=== PATIENT | male | born 1955 | race Caucasian/White ===

== ENCOUNTER 2019-12-22 09:47 | Emergency (ER) | payer SELFPAY ==
[2019-12-22] VITALS (19 sets, daily range): BP systolic 134–166; BP diastolic 76–121; PULSE 53–76; RESP 12–22; TEMP 36.7–36.8; O2SAT 96–100
--- NOTE | 2019-12-22 09:45 | RT.EKG_ITS ---
APPROVED REPORT Exam: Resting ECG Patient Location: E HR:62 bpm ECG Measurements Heart Rate 62 AXIS MS 159 P 38 QRSd 94 QRS -20 QT 407 T 64 QTc 415 <Conclusion> Sinus rhythm...normal P axis, V-rate 62, no stemi
--- NOTE | 2019-12-22 10:18 | W.ED.GENAD ---
Discharge Plan Disposition Patient Disposition: HOME Condition: Improving Discharge Details Chief Complaint: Dizzy/Sync Clinical Impression: Vertigo Primary Care Provider: [facility] Provider: Johny Blanca Home Meds and New Rx's Prescriptions: New cephalexin 500 mg capsule 500 mg PO TID 5 Days Qty: 15 RF: 0 meclizine 25 mg tablet 25 mg PO BID PRNQty: 10 RF: 0 Discharge Instructions Instructions: Vertigo (ED) Additional Instructions: Your work-up today included CAT scan of the head and neck with CT angiogram. You had laboratory testing including kidney function, electrolytes, cardiac troponin, liver functions, complete blood count. Home to rest today. Continue the use of meclizine as needed for persistent vertigo symptoms. Return if develop a headache, fever, persistent vomiting or any other acute concerns. Our care management team will work to get you a follow-up to establish primary care in this area. Take the Keflex as prescribed. May continue once daily or once every other day dressing changes to the finger. Medical Decision Making Pleasant 64-year-old male who is been living at his camp in [facility]. He states that on Thursday he felt the onset of dizziness while driving and felt as equilibrium has been off since that time. He is primarily been confined to bed and walking by holding onto the schilling. He is had some intermittent episodes of emesis. He endorses a retro-orbital head pressure right greater than left. Patient also states he smashed his left index finger driving a post in the last Thursday. On exam patient is hypertensive 162/120, pulse is 76. His left index finger is macerated and tender. Cranial nerves are intact but his vertiginous symptoms are concerning for peripheral vertigo, sinusitis, must exclude underlying mass. Patient initially hesitant to proceed with work-up stating he has no money and. He was seen by care management. He subsequently agreed to proceed with work-up but asked to defer x-ray of left index finger. His tetanus status was updated. After speaking to care management, the patient's blood pressure improved to 148/100. IV placed and screening labs obtained. Labs reveal CBC with white count 7, hematocrit 48, platelets 233. Sodium 138, potassium 3.7, chloride 104, bicarb 21. BUN 15, creatinine 0.8. LFTs unremarkable, troponin negative. Albumin 3.8. CT scan of the head CTA of head and neck shows normal examination of the [place], unremarkable noncontrast CT scan of the head, normal CTA examination of the neck. Sinuses clear. Patient is improved with fluids and meclizine. As above his neurologic evaluation was unremarkable, laboratories are very reassuring. He declined x-ray of the left finger, it was dressed and I will place him on Keflex for possible early cellulitis as he has been treating the distal portion of macerated skin at home. With schedule the patient for outpatient follow-up to establish care in this area. He will need to watch his blood pressures at home but his last reading is 134/76 and significantly improved. I will prescribe him meclizine to be used as needed for peripheral vertigo. He is stable and improved at this time. Lab Data Lab results reviewed: Yes I reviewed the patient's lab results. Labs: Laboratory Results - last 24 hr 12/22/19 12/22/19 10:50 10:50 WBC 7.13 RBC 4.96 Hgb 16.7 Hct 48.4 MCV 97.6 H MCH 33.7 H MCHC 34.5 RDW 12.8 Plt Count 233 MPV 8.8 Immature Gran % 0.3 Neutrophils % 71.7 Lymphocytes % 18.0 Monocytes % 5.9 Eosinophils % 3.5 Basophils % 0.6 Absolute Neutrophils 5.12 Absolute Lymphocytes 1.28 Absolute Monocytes 0.42 Absolute Eosinophils 0.25 Absolute Basophils 0.04 Sodium 138 Potassium 3.7 Chloride 104 Carbon Dioxide 21.5 Anion Gap 12.5 H BUN 15 Creatinine 0.82 Estimated GFR/1.73 m2 >= 60.00 Glucose 99 Calcium 9.0 Total Bilirubin 0.6 AST 24 ALT 26 Alkaline Phosphatase 76 Troponin I < 0.05 Total Protein 7.2 Albumin 3.8 ECG Data Attestation: I personally reviewed and interpreted this ECG (s) as follows: Interpretation: Normal sinus rhythm with a rate of 62, QRS is narrow, there is no ST segment elevation present. HPI General Mode of arrival: ambulatory. Date/Time Provider Initiated Documentation: 12/22/19 09:48. Limitations to Documentation: no limitations. Information obtained by: patient. History of Present Illness 64 year old M presents to the emergency department with the chief complaint of Vomiting and dizziness since Thursday, left index finger injury, described as moderate, Quality is described as constant, and is localized to the head. Patient reports no radiation. Patient started experiencing this day(s) and it has been constant. Rest improves symptom(s), Movement worsens symptoms . Patient notes nausea/vomiting; denies confusion, chest pain, cough, fever/chills, syncope and weakness. Patient did receive the following treatments prior to arrival, none Related Data Home Medications Medication Instructions Recorded Confirmed cephalexin 500 mg PO TID 5 Days #15 cap 12/22/19 meclizine 25 mg PO BID PRN #10 tab 12/22/19 Previous Rx's Medication Instructions Recorded cephalexin 500 mg PO TID 5 Days #15 cap 12/22/19 meclizine 25 mg PO BID PRN #10 tab 12/22/19 Allergies Allergy/AdvReac Type Severity Reaction Status Date / Time No Known Allergies Allergy Unverified 12/22/19 10:02 General Stated Complaint: Dizzy/Sync TALIB: 3 Review of Systems Narrative: Smashed his left index finger while placing a fence post on last Thursday he is treated with Band-Aid and ointment. States he has mild retro-orbital pressure sensation but not pain. Has been nauseated with intermittent episodes of vomiting. Denies other significant symptoms. 8 systems reviewed and otherwise negative. [facility] Social History Smoking/Tobacco Use Status: Never Alcohol Intake: never Drug use: Daily Substance use type: marijuana Exam Narrative Exam Narrative: GEN: awake, alert, oriented 3. Pleasant, well groomed, interactive. HEAD: Normocephalic, atraumatic ENT: Mucous membranes moist, oropharynx unremarkable, External ear exam unremarkable, tympanic membranes partially occluded by cerumen bilaterally but clear. EYES: PERRL, EOMI NECK: Full ROM, no ESTEFANY, no menigismus CHEST/RESP: Nontender, clear to auscultation bilateral, no wheeze/rhonchi/rales CARDIOVASCULAR: Distant, RRR, no murmur, rub terri. 2+ Rad pulse bilateral ABDOMEN: Soft, nontender, no mass. +Bowel sounds EXT: Full ROM, no edema, left index finger distal portion is macerated on the volar surface and tender. Neuro: Grossly normal neurologic exam, conversant, interactive. Cranial nerves 2 through 12 intact, [id number] intact, visual borrero intact to confrontation. Able to stand at the bedside. Negative Romberg. Psych: Speech fluent, thoughts congruent, affect normal Course Vital Signs Vital signs: Vital Signs Temperature 36.8 C 12/22/19 09:57 Pulse 76 12/22/19 09:57 Respiratory Rate 16 12/22/19 09:57 Blood Pressure 162/121 H 12/22/19 09:57 Pulse Oximetry 97 12/22/19 09:57 Temperature 36.8 C 12/22/19 09:57 Temperature Source Skin 12/22/19 09:57 Pulse 76 12/22/19 09:57 Respiratory Rate 16 12/22/19 09:57 Respiratory Effort Non-Labored 12/22/19 09:57 Blood Pressure 162/121 H 12/22/19 09:57 Pulse Oximetry 97 12/22/19 09:57 Oxygen Delivery Method Room Air 12/22/19 09:57 Oxygen Flow Rate 0 12/22/19 09:57 Pain Level 5 12/22/19 09:57
--- NOTE | 2019-12-22 10:44 | PDOC.ERCMPRO ---
- If Service Date Differs Date of service: 12/22/19 Time of Service: 10:45 Care Management Progress Note S/O: At the request of ED provider, CM meets with patient to discuss financial concerns. Jann reports for the past 7 or 8 years, he has been living in [place]. In August of this year, when the pandemic began creating havoc, he decided to move to [place] to be with his two adult sons and his 7-year-old granddaughter. 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 At the beginning of November, his youngest son moved in with him. Jann states his son works full-time but has a TBI, so he requires support from Jann. At this time, the only income Jann has is from a rental property he owns in [place], where he lived prior to moving to [place]. He currently has no health insurance, does not have a local primary care provider, and has no other means of support. Jann owns a vehicle and is independent at baseline, so transportation is not an issue. He also reports having plenty of food and denies any other financial concerns. A: Jann is a 64 year old male who presents to the ED with dizziness over the past two days. P: MURRAY provides Jann with contact information for [facility] and gives him a patient assistance application. CM will coordinate referrals to [facility] for assistance with health insurance, and to Dr. Zhu, [facility]oc, of [facility], to assist Jann in getting a follow up appointment to his ED visit and in establishing care with a local PCP.
--- NOTE | 2019-12-22 10:45 | DI.CT_ITS ---
EXAM: CT BRAIN NECK CTA CLINICAL HISTORY: Dizzy, nausea, R > L sinus pressure. TECHNIQUE: Imaging Protocol: Axial CT angiography was performed with multi-slice acquisition and mu lti-planar and/or 3D reconstructions. CONTRAST MATERIAL: Intravenous: Omnipaque 350 Contrast volume:structured data in ml COMPARISON: No exams were available for comparison FINDINGS: CT Head W/O: Ventricles and Extra axial spaces: Normal in size and morphology for the patient's age. Hemorrhage: None. Cerebral parenchyma: Normal. Midline shift: None. Brainstem/Cerebellum: Normal. Calvarium: Normal. Visualized Paranasal sinuses/Mastoids: Clear. Soft Tissues: Unremarkable. CTA Brain W: Internal Carotid Arteries: Petrous: Normal. Cavernous: Normal. Cerebral: Normal. Middle Cerebral Arteries: Right: No aneurysm, occlusion or significant stenosis. Left: No aneurysm, occlusion or significant stenosis. Anterior Cerebral Arteries: Right: No aneurysm, occlusion or significant stenosis. Left: No aneurysm, occlusion or significant stenosis. Posterior cerebral Arteries: Right: No aneurysm, occlusion or significant stenosis. Left: No aneurysm, occlusion or significant stenosis. Vertebral Arteries: Right: No aneurysm, occlusion or significant stenosis. Left: No aneurysm, occlusion or significant stenosis. Basilar Artery: No aneurysm, occlusion or significant stenosis. CTA Neck W: Common Carotid: Right: No aneurysm, occlusion or significant stenosis. Left: No aneurysm, occlusion or significant stenosis. External Carotid: Right: No aneurysm, occlusion or significant stenosis. Left: No aneurysm, occlusion or significant stenosis. Internal Carotid: Right: No aneurysm, occlusion or significant stenosis. Left: No aneurysm, occlusion or significant stenosis. Vertebral Artery: Right: No aneurysm, occlusion or significant stenosis. Left: No aneurysm, occlusion or significant stenosis. Lung Apices: Normal. Bones: Degenerative disc and facet degenerative changes. Soft Tissues: Normal. IMPRESSION: 1. Normal CTA examination of the [place]. 2. Unremarkable noncontrast CT Head. 3. Normal CTA examination of the neck. RADIATION DOSE DELIVERED: 1,231mGy.cm Total DLP DATA REPOSITORY: All CT scans at this facility are submitted to the National Radiology Data Registry (NRDR) Dose Index Registry (DIR) with the [employer] (ACR). RADIATION OPTIMIZATION: All CT scans at this facility use at least one of these dose optimization te chniques: automated exposure control; mA and/or kV adjustment per patient size (includes targeted exa ms where dose is matched to clinical indication); or iterative reconstruction.
[2019-12-22] MEDS: Normal Saline Flush 10 ML SYR IVP (10:50)
[2019-12-22] MEDS: Normal Saline 1,000 ML 1000 ML IV (11:00)
[2019-12-22 11:02] LABS: Abs Immature Grans 0.02 10^3/uL (0.0-0.06); Absolute Basophil Count 0.04 10^3/uL (0.0-0.2); Absolute Eosinophil Count 0.25 10^3/uL (0.0-0.7); Absolute Lymphocyte Count 1.28 10^3/uL (1.2-3.4); Absolute Monocyte Count 0.42 10^3/uL (0.1-0.8); Absolute Neutrophil Count 5.12 10^3/uL (1.2-6.7); Basophils % 0.6; Eosinophils % 3.5; HCT 48.4 % (40.0-50.0); HGB 16.7 g/dL (13.5-17.5); Immature Grans % 0.3; MCH 33.7 pg (27.0-33.0); MCHC 34.5 % (32.0-36.0); MCV 97.6 fL (80-95); MPV 8.8 fL (8.0-11.0); Monocytes % 5.9; Neutrophils % 71.7; Platelet Count 233 10^3/uL (130-400); RBC 4.96 10^6/uL (4.36-5.78); RDW 12.8 % (11.8-14.1); RDW-SD 46.1 fL; WBC 7.13 10^3/uL (4.4-10.8)
[2019-12-22] MEDS: Meclizine 25 MG TAB PO (11:07)
[2019-12-22] MEDS: Cephalexin 500 MG CAP, 4 CAPS/BTL PO (11:17)
[2019-12-22 11:20] LABS: ALT 26 U/L (16-63); AST 24 U/L (15-37); Albumin 3.8 g/dL (3.4-5.0); Alkaline Phosphatase 76 U/L (46-116); Anion Gap 12.5 mmol/L (3-11); BUN 15 mg/dL (7-18); Bilirubin, Total 0.6 mg/dL (0.2-1.0); CO2 21.5 mmol/L (21.0-32.0); CREATININE 0.82 mg/dL (0.70-1.30); Chloride 104 mmol/L (98-107); Glucose 99 mg/dL (74-106); Potassium 3.7 mmol/L (3.5-5.1); Sodium 138 mmol/L (136-145); Total Protein 7.2 g/dL (6.4-8.2); Troponin I < 0.05 ng/mL (<0.06)
--- NOTE | 2019-12-22 12:51 | NUR.NOTE ---
Nursing Note: Referral given to Fleet Administrative Assistant to establish care with PCP. Susan Dugan
[2019-12-22 13:42] LABS: Troponin I < 0.05 ng/mL (<0.06)
== END 2019-12-22 14:10 | disposition home or self-care (01) ==
PROVIDERS: Emergency Provider Emergency Medicine
DX: R42 Dizziness and giddiness (principal); S61.211A Laceration without foreign body of left index finger without damage to nail, initial encounter; W27.8XXA Contact with other nonpowered hand tool, initial encounter; R11.2 Nausea with vomiting, unspecified; I10 Essential (primary) hypertension
CPT/HCPCS: 36415; 70496; 70498; 80053; 90471; 93005; 96360; 99285; 84484; 85025; 93010; 99284

== ENCOUNTER 2020-11-02 11:00 | Emergency (ER) | payer SELFPAY ==
[2020-11-02 11:02] VITALS: BP 164/89; PULSE 63; TEMP 36.7; O2SAT 98
--- OUTSIDE RECORDS SUMMARY | 2020-11-02 11:05 | XMS_ITS ---
:1955 External Reference #:[id number] Author Care Team Providers Name Role Phone Kaylee Burt Primary Care Provider Unavailable Allergies None recorded. Medications Name Status Start Date Stop Date ? ? fluconazole Active ? Not available 1x week for 12 weeks for toenail fingus losartan Active 09/03/2020 Not available Problems Name Status Onset Date Source ? Onychomycosis of Toenails Active 10/16/2020 ? Hypertensive Disorder Active 10/16/2020 ? Family History of Cardiovascular Disease Active 021 ? Family History of Blood Coagulation Disorder Active ? Macrocytosis - No Anemia Active 10/22/2020 ? Muscle Weakness Active 10/22/2020 ? Pain in Limb Active 10/22/2020 ? Dizziness Active 10/22/2020 ? Pain in Right Hip Joint Active 10/22/2020 ? Pain in Right Knee Active 10/22/2020 ? Pain of Left Elbow Joint Active 10/22/2020 ? Procedures Date Name Performed by ? ? Hernia Repair Information not avai lable 10/16/2020 US, Duplex, Venous, Lower Extremity Xray [facility] [address] [place], [place] [address] (Work [address]) 10/17/2020 XR, Hip + Pelvis, Bilateral, 3 or 4 Xray [facility] [address], [place] [address] (Work Place) Results Lab Results None recorded. Past Encounters 10/16/2020 Hypertensive Disorder; Family History of Cardiovascular Disease; Family History of Blood Coagulation Disorder; Onychomycosis of Toenails; Hyperlipidemia Screening; Pain of Left Elbow Joint; Pain in Righ t Knee; Dizziness; Muscle Weakness; Macr ocytosis - No Anemia; Pain in Limb; Pain in Right Hip Joint Kaylee Burt, ND: [address], [place] [address], Ph. [phone] Social History Tobacco Smoking Status Never Smoker Vaccine List None recorded. Plan of Care Patient Instructions 1. Kerwin Parsons PT 2. US right thigh and groin, behind knee R/o CVT first if nothing then order hernia US, and hip /pelvic xray 3. LYme western blot? 4 , general bloodwork- [facility] at [facility] ent 5. Imaging of heart? carotid scan? [facility] Provider Appointments None recorded. ? ? Lab None recorded. ? ? Referral None recorded. ? ? Procedures None recorded. ? ? Surgeries None recorded. ? ? Imaging None recorded. ? ? Vitals Height Weight BMI Blood Pressure 5 ft 11 in 214 lbs 29.8 kg/m2 140/84 mm[Hg]
--- OUTSIDE RECORDS SUMMARY | 2020-11-02 11:05 | XMS_ITS | Encounter Summary ---
:1955 External Reference #:[id number] Author Reason for Visit None recorded. Assessment and Plan Assessment Note I spent a total of 90 minutes face to face time with this patient and 75 minutes of that time was spent in counseling and coordination of care with that patient as described in the progress note and /or: recommended diagnostic studies instructions for treatment and follow-up 1. Hypertensive disorder ? lipoprotein a, qn, serum 2. Family history of Cardiovascu lar disease 3. Family history of blood coagu lation disorder 4. Onychomycosis of toenails 5. Hyperlipidemia screening ? HbA1c (hemoglobin A1c), bl ood ? homocysteine, serum or glenny sma ? CMP, serum or plasma ? CRP, high sensitivity, ser um or plasma ? lipid panel, serum 6. Pain of left elbow joint 7. Pain in right knee 8. Dizziness ? dizziness: care instructio ns ? vitamin B12 + folate, seru m or blood 9. Muscle weakness ? CK (creatine kinase), tota l, serum 10. Macrocytosis - no anemia ? CBC w/ diff 11. Pain in limb ? US, duplex, venous, lower extremity - look for DVT strong FamHx of clots, early stroke mother and father an d sibling- deep pain behind knee, also has pain in groin-right side look for hernia , DVT 12. Pain in right hip joint ? XR, hip + pelvis, bilatera l, 3 or 4 view Discussion Note: None recorded. Plan of Care Patient Instructions 1. Kerwin Parsons PT 2. US right thigh and groin, behind knee R/o CVT first if nothing then order hernia US, and hip /pelvic xray 3. LYme western blot? 4 , general [facility]- [facility] 5. Imaging of heart? carotid scan? Reminders Provider Appointments Established Shila haley Patient 46 11/06/2020 SRIDEVI Burt 8:45AM Lab HbA1C ? (Hemoglobin a1C), Blood 10/16/2020 ? Homocysteine, ? Serum or Plasma 10/16/2020 ? CMP, Serum or ? Plasma 10/16/2020 ? CRP, High ? Sensitivity, Serum or 10/16/2020 Plasma ? CK (Creatine ? Kinase), Total, Serum 10/16/2020 ? Vitamin B12 + ? Folate, Serum or Blood 10/16/2020 ? CBC W/ Diff ? 10/16/2020 ? Lipid Panel, ? Serum 10/16/2020 ? Lipoprotein a, ? Qn, Serum 10/16/2020 Referral None recorded. ? ? Procedures None recorded. ? ? Surgeries None recorded. ? ? Imaging US, Duplex, [facility] Xray Venous, Lower Extremity 10/16/2020 ? XR, Hip + [facility] Xr ay Pelvis, Bilateral, 3 or 4 10/17/2020 View Medications Name Start Date ? ? fluconazole ? 1x week for 12 weeks for toenail fingus losartan 09/03/2020 Medications Administered None recorded. Vitals Height Weight BMI Blood Pressure 5 ft 11 in 214 lbs 29.8 kg/m2 140/84 mm[Hg] Results Lab Results None recorded. Allergies None recorded. Problems Name Status Onset Date Source ? [...] 10/16/2020 US, Duplex, Venous, Lower Extremity Xray [facility] [address] [place], [place] [address] (Work Place) Vaccine List None recorded. Social History Tobacco Smoking Status Never Smoker Family History Relation Problem Onset Age of Age Notes Brother Disorder of (No N/A (No Notes) cardiovascular system Information) Brother Family history of blood (No N/A (No Notes) coagulation disorder Information) Functional Status Unknown. Past Encounters 10/16/2020 Hypertensive Disorder; Family History of Cardiovascular Disease; Family History of Blood Coagulation Disorder; Onychomycosis of Toenails; Hyperlipidemia Screening; Pain of Left Elbow Joint; Pain in Righ t Knee; Dizziness; Muscle Weakness; Macr ocytosis - No Anemia; Pain in Limb; Pain in Right Hip Joint Kaylee Burt, ND: [address], [place] [address], Ph. 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
</div><div>right leg issue:</div><div>feels weakness</div><div>he was playing fetch with [employer] RIGHT leg collapsed and he fell on ground- </div><div>left foot must go on ground- first anf then right leg</div><div>he moved here from [place]- he us used to walk 5 mi every am- and now he cant walk from right hip- lower back and knee- </div><div>no imaging- </div><div>has no doctor- </div><div>he would like an MD- </div><div>her went to ER last for vertigo- </div><div>dizziness like looking thr ough a straw- </div><div>pixelated and moving was out of focus- </div><div>he went to ER 4/5 days and he started a RX as needed- but f he didnt take it- </div><div>stayed in bed</div><div>no headache</div><div>thet Brain CT nothing- </div><div>non contrast Ct showed no abnormalities- </div><div>
</div><div>he hurt his finger, crushed it- itrrigated 2xday and aspirin and neosporin and it healed itself- </div><div>
</div><div>was 217 c</div><div>holesterol in past he thinks</div><div>aches all the time and keeps him awake at noght- he doesnt have any cold</div><div>has never been on meds for cholesterol- he hasnt had a DR in 10yrs- </div><div>
</div><div>smoked marijuana- </div><div>[employer]- marijuana- </div><div>
</div><div>he has 3 sibling one oldest- all bigger and heavy- </div><div>everyone is on a blood thinner- both parents- brother chronic clots in lower legs- 10 </div><div>sister had a stroke at 40yrs old- </div><div>htn everyone- </div><div>sister also has a calve wound that will not heal- </div><div>
</div><div>frequency- at noght and inabiltyto hold urine- </div><div>
</div><div>inner groin on right side- </div><div>and inner thigh and knee</div><div>also cant ly on right side bc hiphurts</div><div>knee constantly hurt center of knee up throgh the back of knee- </div><div> he has had a lot of ticks on him- </div><div> has a bad diet- rubbing < /div> Review of Systems None recorded. Physical Exam ? General Adult Exam Reported By: Patient Constitutional: General Appearance: healthy- appearing, well-nourished, well-developed, overweight. Level of Distress: NAD. Ambulation: ambulating normally Psychiatric: Insight: good judgement. Men emely Status: active and alert, normal mood, normal affect. Orienta tion: to time, to place, to person. Memory: recent memory normal , remote memory normal Head: Head: normocephalic, atrauma tic Eyes: Lids and Conjunctivae: non-i njected, no discharge, no pallor. Pupils: PERRLA. Corneas: codie ssly intact. Fundoscopic: grossly normal except where noted, n ormal optic discs, normal vessels, no exudates, no hemorrhages. EO M: EOMI. Lens: clear. Sclerae: non-icteric. Vision: periphe ral vision grossly intact, acuity grossly intact ENMT: Ears: no lesions on external ear, EACs clear, TMs clear, TM mobility normal. Hearing: no hearing loss, Rinne AC>BC. Nose: no lesions on external nose, na res patent, no septal deviation, nasal passages clear, no sinus ten derness, no nasal discharge. Lips, Teeth, and Gums: no mouth or lip ulcers, no bleeding gums, normal dentition. Oropharynx: moist mucous membranes, no erythema, no exudates, tonsils not enlarg ed Lungs: Respiratory effort: no dyspn ea. Auscultation: breath sounds normal, good air movement, no wheezi ng, no rales/crackles, no rhonchi Cardiovascular: Apical Impulse: not displace d. Heart Auscultation: RRR, normal S1, normal S2. Neck vessels: no carotid bruits. Pulses including femoral / pedal: normal thro ughout Abdomen: Bowel Sounds: increased. Ins pection and Palpation: soft, non-distended, no tenderness , no guarding, no rebound tenderness, no masses, no CVA tenderness . Liver: non-tender, no hepatomegaly. Spleen: non-tender, no splen omegaly. Hernia: none palpable Male : Scrotum: no swelling, no ten derness Musculoskeletal:: Motor Strength and Tone: nor mal. Joints, Bones, and Muscles: normal movement of all extremities Neurologic: Gait and Station: normal gai t, normal station. Cranial Nerves: grossly intact. Reflexes: DT Rs 2+ bilaterally throughout. Coordination and Cerebellum: [id number]-or-sgni intact, no tremor Skin: Inspection and palpation: no rash. Nails: normal Notes: red skin<div>dark circles un sandy eyes- dry skin elbos and knees</div><div>
</div>
--- NOTE | 2020-11-02 11:26 | ED.GENADUL_ITS ---
Discharge Plan Disposition Patient Disposition: HOME Condition: Good Discharge Details Clinical Impression: Tick bite Primary Care Provider: Kaylee Burt ED Provider: Abby Linton Home Meds and New Rx's Prescriptions: New doxycycline hyclate 100 mg tablet 100 mg PO BID Qty: 14 RF: 0 No Action fluconazole 150 mg Tablet 150 mg PO DIRECTED RF: 0 losartan 25 mg Tablet 25 mg PO DAILY RF: 0 Discharge Instructions Instructions: Tick Bite (ED) Additional Instructions: Follow-up with primary care physician I have ordered a tick panel, this should return within the next several days Take antibiotic as prescribed Return earlier should you develop new or worsening symptoms Medical Decision Making This could be erythema migrans, however it looks almost more of a contact dermatitis, given the erythema and persistent rash, I did start the patient on doxycycline empirically, he has a Lyme or tick panel pending His only meds supplied with 7 days of doxycycline He also apply hydrocortisone Discharge home stable condition with stable vitals He has a lead cook that he sees but is requesting medical provider as well, referral is made to case management Return precautions discussed and patient expressed understanding, discharged home in stable condition Differential Diagnosis Differential Diagnosis: Erythema migrans, Lyme disease, cellulitis, contact derm atitis HPI General Mode of arrival: ambulatory . Date/Time Provider Initiated Documentation: 11/02/20 11:01 . Limitations to Documentation: no limitations . Information obtained by: patient . HPI Narrative: This 65-year-old male presents with report of tick bite 2 weeks prior to arrival. Thinks it was a dog taste. He removed the tick and a week later that there is residual parts and use d a [employer] knife to remove an additional portion. He states that he noted a rash approximately a week ago. He presents secondary to poor stent rash formation to the affected area. He denies any fever or chills. He denies any arthralgias. He does state that he feels tired . Denies any additional complaints at this time. Otherwise aside from history of hypertension healthy. Describes the rash as itchy. Related Data Home Medications Medication Instructions Recorded Confirmed doxycycline hyclate 100 mg PO BID #14 tab 11/02/20 fluconazole 150 mg PO DIRECTED 11/02/20 11/02/20 losartan 25 mg PO DAILY 11/02/20 11/02/20 Previous Rx's Medication Instructions Recorded doxycycline hyclate 100 mg PO BID #14 tab 11/02/20 Allergies Allergy/AdvReac Type Severity Reaction Status Date / Time No Known Allergies Allergy Unverified 11/02/20 11:07 General Stated Complaint: RashLesion TALIB: 5 Review of Systems Narrative: Review of systems obtained x3 aside from where indicated in HPI All systems reviewed & are unremarkable except as noted in HPI and below PFSH Social History Smoking/Tobacco Use Status: Never Smoking risk assessment performed?: Yes Alcohol Intake: never Drug use: Daily Substance use type: marijuana Do you feel safe at home: Yes Do you feel safe in your relationship?: Yes Exam Const General: cooperative and no acute distress Resp Effort & Inspection: normal respiratory effort Cardio Rate: regular rate Skin Other: Approximately 3 inch x 3 inch erythematous rash with small area of central clearing surrounding scab, papular rash noted Neuro General: patient alert Course Vital Signs Vital signs: Vital Signs Temperature 36.7 C 11/02/20 11:02 Pulse 63 11/02/20 11:02 Blood Pressure 164/89 H 11/02/20 11:02 Pulse Oximetry 98 11/02/20 11:02 Temperature 36.7 C 11/02/20 11:02 Temperature Source Temporal Artery Scan 11/02/20 11:02 Pulse 63 11/02/20 11:02 Respiratory Effort Non-Labored 11/02/20 11:06 Blood Pressure 164/89 H 11/02/20 11:02 Blood Pressure Position Sitting 11/02/20 11:02 Pulse Oximetry 98 11/02/20 11:02 Oxygen Delivery Method Room Air 11/02/20 11:02 Oxygen Flow Rate 0 11/02/20 11:02 Pain Level 0 11/02/20 11:02
--- NOTE | 2020-11-02 18:47 | NUR.NOTE ---
Nursing Note: referral faxed to care management 11/02/20 @ [phone]
[2020-11-05 09:52] LABS: Lyme Ab w Rflx to Lyme Confirm Negative (Negative)
[2020-11-06 18:36] LABS: Anaplasma phagocytophilum Negative (Negative); B. miyamotoi PCR Negative (Negative); Babesia divergens/MO-1 Negative (Negative); Babesia duncani Negative (Negative); Babesia microti Negative (Negative); Ehrlichia chaffeensis Negative (Negative); Ehrlichia ewingii/canis Negative (Negative); Ehrlichia muris eauclairensis Negative (Negative)
== END 2020-11-02 11:36 | disposition home or self-care (01) ==
PROVIDERS: Emergency Provider Physician Assistant; PCP Naturopath
DX: S30.861A Insect bite (nonvenomous) of abdominal wall, initial encounter (principal); W57.XXXA Bitten or stung by nonvenomous insect and other nonvenomous arthropods, initial encounter
CPT/HCPCS: 36415; 87798; 99283; 86618

== ENCOUNTER 2020-11-13 03:18 | Outpatient (CLI) | payer SELFPAY ==
[2020-11-13 08:31] LABS: Kit/Specimen SENT
== END 2020-11-13 03:19 | disposition home or self-care (01) ==
LOC: LBO 03:18
PROVIDERS: PCP Nurse Practitioner Family; Visit Provider Naturopath
DX: A69.20 Lyme disease, unspecified (principal); R53.83 Other fatigue
CPT/HCPCS: 36415

== ENCOUNTER → 2020-12-14 04:44 | Outpatient (CLI) | payer SELFPAY ==
--- NOTE | 2020-12-14 07:15 | DI.RAD_ITS ---
Exam(s) XR HIP RT COMPLETE AP PELVIS EXAM: XR HIP RT COMPLETE AP PELVIS CLINICAL HISTORY: Worsening hip pain over year,M25.559. TECHNIQUE: 2D digital imaging was performed. COMPARISON: No exams were available for comparison FINDINGS: BONES: No acute fracture is present. No bony destructive lesion is seen. Degenerative disc changes a re seen in the lower lumbar spine. JOINTS: No dislocation present. Severe narrowing of the right hip joint space. Prominent periarticul ar spurring. Sclerosis and subchondral cyst formation. [id number] degenerative changes of the left hip. SI joints and pubic symphysis are unremarkable. SOFT TISSUE: Normal. IMPRESSION: Severe degenerative changes of the right hip. [id number] degenerative changes of the left hip. DATA REPOSITORY: RADIATION DOSE DELIVERED:
== END ==
PROVIDERS: PCP Nurse Practitioner Family; Visit Provider Nurse Practitioner Family
DX: M16.0 Bilateral primary osteoarthritis of hip (principal)
CPT/HCPCS: 73502

== ENCOUNTER 2021-07-10 02:19 | Outpatient (CLI) | payer SELFPAY ==
[2021-07-10 21:19] LABS: COVID-19 PCR Negative (Negative)
[2021-07-10 23:19] LABS: Source Nasal/Nares
== END 2021-07-10 02:20 | disposition home or self-care (01) ==
LOC: LBO 02:19
PROVIDERS: PCP Nurse Practitioner Family; Visit Provider Surgery
DX: Z20.822 Contact with and (suspected) exposure to COVID-19 (principal)
CPT/HCPCS: 87635

== ENCOUNTER 2021-07-12 07:38 | Day surgery (SDC) | payer SELFPAY ==
--- NOTE | 2021-07-11 21:32 | PDOC.DSDIS_ITS ---
Discharge Plan Disposition Patient Disposition: HOME Condition: Good Discharge Details Reason For Visit: Colon scope/colonoscopy Attending Provider: Juliana Gabriel Primary Care Provider: Jean Carlos David Home Meds and New Rx's Prescriptions: No Action polyethylene glycol 3350 17 gram/dose powder 238 g PO ONCE Qty: 238 0RF Rx Instructions: take per colonoscopy instructions bisacodyl [Dulcolax (bisacodyl)] 5 mg tablet,delayed release (DR/EC) 5 mg PO ONCE Qty: 4 0RF Rx Instructions: take per colonoscopy instructions losartan 100 mg tablet 100 mg PO DAILY 0RF aspirin 325 mg tablet 325 mg PO DAILY 0RF Discharge Instructions Additional Instructions: DSU Colonoscopy Post- Op Instructions Instructions for Everyone who is given Anesthesia: For your safety, please do the following for the next twenty-four (24) hours: *Do Not operate a motor vehicle (car, truck, motorcycle, etc.) *Do Not drink alcoholic beverages or use any recreational drugs for the first 24 hours or while taking pain medications. The medications in your body may have a reaction that can be dangerous. *Do Not make any important decisions or sign any important papers. Findings:diverticula- mild. polyps x2 Follow up: My office will send a letter in 3 weeks time detailing what types of polyps they were and when we want you to repeat the colonoscopy, probably 5 years time. 1. No lifting over 20 pounds or strenuous activity for the first 24 hours after your procedure. After 24 hours there are no restrictions on your activity but you may feel fatigued for a few days. 2. After you arrive home you may have a light meal and return to your normal diet as you can tolerate it without feeling sick to your stomach. 3. You may have a bloated, gaseous feeling in your belly (abdomen) after a colonoscopy. Passing gas and belching will help. Walking or lying down on your left side with your knees flexed may relieve the discomfort. Call the office at [phone] (Office) or [phone] (Hospital) right away if you notice any of the following: a.Vomiting of blood or ?coffee ground stools?. b.Rectal bleeding 1Tbsp, blood clots or continuous bleeding. c.Severe belly (abdominal) pain. d.A hard distended belly (abdomen) and an inability to pass gas. 4. Please don?t expect to have a normal BM (bowel movement) for 2-3 days after your procedure. 5. If there are questions regarding the findings of your procedure, please contact your doctor 6. If you are unable to contact your doctor with a problem, contact the hospital at [phone]. 7. Continue all your regular medications unless directed otherwise. I understand the above instructions and have no questions. Signature of Patient or Adult Escort Name of Responsible Adult Escort Signature of Nurse Date/Time Activity:: See above Diet:: See above Discharge Orders Discharge Orders: Discharge Order (Routine); Ordered 07/11/21 Ordered By: Juliana Gabriel
--- NOTE | 2021-07-11 21:33 | W.COLOREPORT ---
Colonoscopy Report Date of procedure: 07/12/21 Pre-op diagnosis general: Colon cancer screening Post-op diagnosis procedure note: other (Minor diverticula/polyps x2) Surgeon: Juliana Gabriel Anesthesia Type: General:No Airway Complications: None Disposition: same day Prep: Miralax/Dulcolax Retraction Time: 10 Procedure Description: After informed consent was obtained the patient was taken to the procedure room and placed in a left decubitous position. Monitors were applied and a time out was done. The patients name, date of , procedure, allergies to medications and metal in their body was reviewed. The patient was then sedated. Once sedated and comfortable a rectal exam was done. External exam was normal. Internal exam revealed a normal sphincter tone and no palpable masses. The prostate smooth without masses. She will The scope was then introduced and retrofelexed. internal hemorrhoids were identified. The scope was then advanced to the cecum without difficulty. The prep is a be BPS?three,throughout the entire colon. the TI and appendiceal orifice were identified. The scope was then slowly retracted over 10minutes back into the rectum. He has mild diverticular disease confined to the sigmoid colon only. He has a 0.75 cm pedunculated polyp in the cecum that is removed with a hot snare. The base was adequately cauterized and did not require clip. He has a 5 mm flat polyp at 70 cm that is removed with a hot biting forcep with one bite. All specimen is retrieved and no bleeding is noted. Mucosa is pink and healthy throughout the entirety of the colon. Scope was removed and the patient was woken up and taken back to Same day surgery in stable condition. The patient tolerated the procedure well and there were no immediate complications. Follow up: The patient should follow up in 5-7 years, path pending,unless they develop changes in bowel habits or other new gastrointestinal complaints.
[2021-07-12 07:43] VITALS: BP 128/85; PULSE 72; RESP 16; TEMP 35.9; O2SAT 98
[2021-07-12] MEDS: Lactated Ringers 1,000 ML 80 ML IV (08:09)
--- NOTE | 2021-07-12 08:18 | W.ANESPRE ---
General Info Date of Service Date Performed: 07/12/21 Height: 5 ft 11 in Weight: 100.6 kg Body Mass Index (BMI): 30.9 Surgical Procedure: Operation Date: 07/12/21 08:05 Proposed Procedure Side Surgeon kira Gabriel, DO Meds Allergies and Home Medications Allergies Allergy/AdvReac Type Severity Reaction Status Date / Time No Known Allergies Allergy Verified 07/12/21 08:01 Home Medication Medication Instructions Recorded aspirin 325 mg tablet 325 mg PO DAILY 12/05/20 losartan 100 mg tablet 100 mg PO DAILY 12/05/20 bisacodyl 5 mg tablet,delayed 5 mg PO ONCE #4 tab 06/28/21 release (Dulcolax (bisacodyl)) polyethylene glycol 3350 17 238 g PO ONCE #238 g 06/28/21 gram/dose oral powder Current Visit Medications: Current Medications Generic Name Dose Route Start Last Admin Trade Name Freq PRN Reason Stop Dose Admin Hyoscyamine Sulfate 0.125 mg 07/11/21 21:31 Hyoscyamine 0.125 Mg Sl/Oral/Chew SL DIRECTED PRN Ringer's Solution 1,000 mls @ 80 mls/hr 07/12/21 06:00 07/12/21 08:09 IV 08/10/21 23:59 80 mls/hr INFUSION ANDREA Administration IV Miscellaneous Supplies 1 each 07/12/21 06:00 Iv Access IV 08/10/21 23:59 DIRECTED ANDREA Ondansetron HCl 4 mg 07/11/21 21:31 Ondansetron 4 Mg/2 Ml Vial IVP Q4H PRN PRN Nausea / Vomiting Sodium Chloride 0 ml 07/12/21 06:00 Normal Saline Flush 10 Ml Syr IV 08/10/21 23:59 PRN PRN Sodium Chloride 0 ml 07/12/21 06:00 Normal Saline 10 Ml Vial IJ 08/10/21 23:59 DIRECTED PRN Sterile Water 0 ml 07/12/21 06:00 Water,Injection,Sterile 10 Ml Vial IJ 08/10/21 23:59 DIRECTED PRN PFSH Active Problems Active Problems: Problem Status Onset Code Degenerative joint disease of right hip M16.11 Hip pain M25.559 Actinic keratosis L57.0 Hypertension I10 Marijuana smoker F12.90 Tick bite W57.XXXA Medical History Medical History Bradycardia Tobacco Smoking/Tobacco Use Status: Current every day Tobacco Type: cigarettes Passive smoking exposure: No Second hand exposure: No Alcohol Alcohol Intake: former Substance Use Substance use: Occasionally Substance use type: marijuana Vital Signs and Lab Results Vital Signs Most Recent Vital Signs in EMR: Most Recent Vital Signs Temp Pulse Resp BP Pulse Ox 35.9 C L 72 16 128/85 98 07/12/21 07:43 07/12/21 07:43 07/12/21 07:43 07/12/21 07:43 07/12/21 07:43 Lab Results Blood Type / Crossmatch: No Data to Display Complete Blood Count: No Data to Display Complete Metabolic Panel: No Data to Display Liver Function Panel: No Data to Display Coagulation Panel: No Data to Display Cardiac Panel: No Data to Display Arterial Blood Gas: No Data to Display Venous Blood Gas: No Data to Display Pancreas Panel: No Data to Display Thyroid Panel: No Data to Display Infectious Disease: Coronavirus (COVID-19)(PCR) Negative (Negative) 07/10/21 08:49 07/10/21 Coronavirus 2019 Source Nasal/Nares 07/10/21 08:49 07/10/21 Blood Cultures: No Data to Display Toxicology Panel: No Data to Display Anesthesia Assessment and Plan Anesthesia History Personal History: No History of Anesthesia Complications Family History: No Family History of Anesthesia Complications Exercise Tolerance Exercise Tolerance: Metabolic Equivalents>4 Pertinent Negatives Pertinent Negatives: No Symptoms of GERD Cardiac & Pulmonary Exam Cardiac Exam: Normal S1/S2 Heart Sounds Pulmonary Exam: Clear Bilateral Breath Sounds Implantable Cardiac Device Does patient have a Pacemaker or an ICD?: No Airway Exam Known Difficult Airway: No Mallampati Class: 2 Mouth Opening: Normal (> 3cm) Thyromental Distance: Greater than 3 cm Facial Hair: Full Judge Neck Range of Motion: Full ROM Neck Circumference: Normal Teeth Condition: Normal Dentition ASA Classification ASA Score: ASA 2 Emergency Case?: No NPO Status NPO Status: NPO Clears >2 hours, Solids >8 hours Anesthesia Plan Resuscitation Status: Full Code Anesthesia Technique: General Anesthesia Airway Planned: Natural Airway Monitors Used: Standard Monitors
[2021-07-12 08:21] VITALS: BMI 30.9
--- NOTE | 2021-07-12 08:38 | BOWEL_PTH ---
PATIENT: Jann Downs LOC: [facility] U#:[id number] AGE/SX: 65/M ROOM: RE07/12/[address]: Juliana Gabriel : 1955 BED: DIS: 07/12/2021 SPEC #: [id number] RECD: 07/12/21 12:46 STATUS: TARAS REQ #: [id number] AIME: 07/12/21 08:[address]: Juliana Gabriel DEPT: Surgical Specimen RECD BY: Abby Latham ENTERED: 07/12/21 12:47 SP TYPE: Bowel OTHR DR: Jean Carlos David, FISH TECHNOLOGIST Tissues: 1 - BIOPSY BOWEL 2 - BIOPSY BOWEL Procedures: GROSS AND MICRO LEVEL 4 Comments: [id number]
[2021-07-12 09:00] VITALS: BP 97/66; PULSE 66; RESP 16; TEMP 36.5; O2SAT 94
--- NOTE | 2021-07-12 09:01 | W.ANESPOSTOP ---
Postoperative Evaluation Date, Time and Location Date Performed: 07/12/21 Time Performed: 09:01 Patient Location: Day Surgery Unit Vital Signs Most Recent Imported Vital Signs: Most Recent Vital Signs Temp Pulse Resp BP Pulse Ox 35.9 C L 72 16 128/85 98 07/12/21 07:43 07/12/21 07:43 07/12/21 07:43 07/12/21 07:43 07/12/21 07:43 Most Recent Manually Entered Vital Signs: Adult Blood Pressure: 97/66 Heart Rate: 60 Respirations: 16 Oxygen Saturation (%): 93 Temperature (C): 36.5 C Pain Score (0-10 Scale): 0 Assessment Mental Status: Awake (Alert & Oriented to Patient Baseline) Airway and Respiratory Function: Patent airway with normal (patient baseline) respiratory exam Cardiovascular Function: Hemodynamically Stable Hydration Status: Adequately Hydrated Nausea & Vomiting: No Nausea or Vomiting Pain: Pt. Denies Any Pain Peripheral Nerve Block: Patient did not receive a nerve block
[2021-07-12 09:04] VITALS: BP 97/66; PULSE 60; RESP 16; TEMPC 36.5; O2SAT 93
[2021-07-12 09:20] VITALS: BP 104/72; PULSE 55; RESP 16; TEMP 36.5; O2SAT 96
== END 2021-07-12 10:10 | disposition home or self-care (01) ==
LOC: SUR 07:39
PROVIDERS: PCP Nurse Practitioner Family; Visit Provider Surgery
PROC: 0DJD8ZZ Inspection of Lower Intestinal Tract, Via Natural or Artificial Opening Endoscopic (ICD-10-PCS; CPT 45378; principal; 2021-07-12 08:00)
DX: Z12.11 Encounter for screening for malignant neoplasm of colon (principal); K57.30 Diverticulosis of large intestine without perforation or abscess without bleeding; K64.8 Other hemorrhoids; D12.4 Benign neoplasm of descending colon; D12.0 Benign neoplasm of cecum
CPT/HCPCS: 45385; 45384; 88305; J2704

== ENCOUNTER 2021-09-16 15:04 | Outpatient (CLI) | payer SELFPAY ==
--- NOTE | 2021-09-16 09:00 | DI.RAD_ITS ---
Exam(s) XR PELVIS AP EXAM: XR PELVIS AP CLINICAL HISTORY: pre op L SANJUANA. TECHNIQUE: 2D digital imaging was performed.One images were obtained. COMPARISON: CR XR HIP RT COMPLETE AP PELVIS from 12/14/2020 FINDINGS: BONES: No acute fracture is present. No bony destructive lesion is seen. JOINTS: No dislocation present. Marked degenerative changes are seen in the right hip. Findings incl ude joint space narrowing, subchondral sclerosis, subchondral cysts and periarticular spurring. Mild to moderate degenerative changes are seen in the left hip with joint space narrowing and acetabular spurring. SOFT TISSUE: Normal. IMPRESSION: 1. Marked osteoarthritis of the right hip. 2. Cifk-tb-lagmhaay degenerative changes of the left hip. DATA REPOSITORY: RADIATION DOSE DELIVERED:
== END 2021-09-16 15:05 | disposition home or self-care (01) ==
LOC: DIORS 15:05
PROVIDERS: PCP Nurse Practitioner Family; Referring Provider Nurse Practitioner Family; Visit Provider Physician Assistant
DX: M16.0 Bilateral primary osteoarthritis of hip (principal); M25.551 Pain in right hip
CPT/HCPCS: 72170

== ENCOUNTER 2021-09-23 01:57 | Outpatient (CLI) | payer MEDICARE, SELFPAY ==
[2021-09-23 12:11] LABS: Source Nasal/Nares
[2021-09-23 16:40] LABS: COVID-19 PCR Negative (Negative)
== END 2021-09-23 01:58 | disposition home or self-care (01) ==
PROVIDERS: PCP Nurse Practitioner Family; Visit Provider Student in an Organized Health Care Education/Training Program
DX: Z20.822 Contact with and (suspected) exposure to COVID-19 (principal); Z01.818 Encounter for other preprocedural examination
CPT/HCPCS: 36415; 80048; 85027; 87635; U0005

== ENCOUNTER 2021-09-23 02:17 | Outpatient (CLI) | payer MEDICARE, SELFPAY ==
[2021-09-23 08:23] LABS: HCT 45.2 % (40.0-50.0); HGB 14.8 g/dL (13.5-17.5); MCH 32.6 pg (27.0-33.0); MCHC 32.7 % (32.0-36.0); MCV 100 fL (80-95); MPV 8.5 fL (8.0-11.0); Platelet Count 239 10^3/uL (130-400); RBC 4.54 10^6/uL (4.36-5.78); RDW 13.2 % (11.8-14.1); RDW-SD 48.7 fL; WBC 6.91 10^3/uL (4.4-10.8)
[2021-09-23 09:25] LABS: Anion Gap 5.5 mmol/L (3-11); BUN 19 mg/dL (7-18); CO2 26.5 mmol/L (21.0-32.0); CREATININE 0.9 mg/dL (0.70-1.30); Calcium 8.7 mg/dL (8.5-10.1); Chloride 107 mmol/L (98-107); Glucose 102 mg/dL (74-106); Potassium 5.3 mmol/L (3.5-5.1); Sodium 139 mmol/L (136-145)
== END 2021-09-23 02:18 | disposition home or self-care (01) ==
PROVIDERS: PCP Nurse Practitioner Family; Visit Provider Student in an Organized Health Care Education/Training Program
DX: M25.551 Pain in right hip (principal); M16.11 Unilateral primary osteoarthritis, right hip; Z01.818 Encounter for other preprocedural examination; Z01.812 Encounter for preprocedural laboratory examination
CPT/HCPCS: 36415; 80048; 85027

== ENCOUNTER 2021-09-23 15:08 | Outpatient (CLI) | payer MEDICARE, SELFPAY | END 2021-09-23 15:09 | disposition home or self-care (01) | LOC: LBO 15:09 | PROVIDERS: PCP Nurse Practitioner Family; Visit Provider Student in an Organized Health Care Education/Training Program | DX: Z20.822 Contact with and (suspected) exposure to COVID-19 (principal); Z01.818 Encounter for other preprocedural examination | CPT/HCPCS: 87635; U0005 ==

== ENCOUNTER 2021-09-24 08:14 | Day surgery (SDC) | payer MEDICARE, SELFPAY ==
[2021-09-24] VITALS (9 sets, daily range): BP systolic 91–143; BP diastolic 54–84; PULSE 44–79; RESP 13–18; TEMP 36.2–36.5; O2SAT 96–99; BMI 31.7
[2021-09-24] MEDS: Lactated Ringers 1,000 ML 80 ML IV (08:50)
[2021-09-24] MEDS: Acetaminophen 500 MG TAB 1000 MG PO (08:51)
[2021-09-24] MEDS: Celecoxib 200 MG CAP 400 MG PO (08:52)
--- NOTE | 2021-09-24 08:55 | ANES.PREOP_ITS ---
General Info Date of Service Date Performed: 09/24/21 Height: 5 ft 11 in Weight: 103.3 kg Body Mass Index (BMI): 31.7 Surgical Procedure: Operation Date: 09/24/21 11:35 Proposed Procedure Side Surgeon p Hip Total Hip Anterior Right Charly Gant MD Meds Allergies and Home Medications Allergies Allergy/AdvReac Type Severity Reaction Status Date / Time No Known Allergies Allergy Verified 09/24/21 08:29 Home Medication Medication Instructions Recorded aspirin 325 mg tablet 325 mg PO DAILY 12/05/20 losartan 100 mg tablet 100 mg PO DAILY 12/05/20 acetaminophen 500 mg tablet 1,000 mg PO Q8H PRN #90 tab 09/23/21 celecoxib 200 mg capsule 200 mg PO BID PRN #60 cap 09/23/21 oxycodone 5 mg tablet 5 mg PO Q4H #15 tab 09/23/21 pantoprazole 40 mg tablet,delayed 40 mg PO DAILY #30 tab 09/23/21 release Current Visit Medications: Current Medications Generic Name Dose Route Start Last Admin Trade Name Ruben PRN Reason Stop Dose Admin Acetaminophen 1,000 mg 09/24/21 06:00 09/24/21 08:51 Acetaminophen 500 Mg Tab PO 1,000 mg PREOP ANDREA Administration Celecoxib 400 mg 09/24/21 06:00 09/24/21 08:52 Celecoxib 200 Mg Cap PO 400 mg PREOP ANDREA Administration Tranexamic Acid 1,000 mg/ 60 mls @ 360 mls/hr 09/24/21 06:00 Sodium Chloride IV PREOP ANDREA Ringer's Solution 1,000 mls @ 80 mls/hr 09/24/21 06:00 09/24/21 08:50 IV 10/23/21 23:59 80 mls/hr INFUSION ANDREA Administration Cefazolin Sodium/Dextrose 2 gm in 50 mls @ 100 mls/hr 09/24/21 06:00 Ancef Duplex IVPB 10/23/21 23:59 PREOP ANDREA IV Miscellaneous Supplies 1 each 09/24/21 06:00 Iv Access IV 10/23/21 23:59 DIRECTED ANDREA Sodium Chloride 0 ml 09/24/21 06:00 Normal Saline Flush 10 Ml Syr IV 10/23/21 23:59 PRN PRN Sodium Chloride 0 ml 09/24/21 06:00 Normal Saline 10 Ml Vial IJ 10/23/21 23:59 DIRECTED PRN Sterile Water 0 ml 09/24/21 06:00 Water,Injection,Sterile 10 Ml Vial IJ 10/23/21 23:59 DIRECTED PRN PFSH Active Problems Active Problems: Problem Status Onset Code Tick bite W57.XXXA Marijuana smoker F12.90 Hypertension I10 Actinic keratosis L57.0 Hip pain M25.559 Degenerative joint disease of right hip M16.11 Tubular adenoma D36.9 Medical History Medical History Bradycardia Medical History Comments:: regular marijauna smoker; last afternoon 09/23 Surgical History Surgical History (Updated 09/24/21 @ 08:34 by Melia Lopez) History of colonoscopy with polypectomy (~07/12/21) Hx of hernia repair Tobacco Smoking/Tobacco Use Status: Never Passive smoking exposure: No Second hand exposure: No Alcohol Alcohol Intake: former Substance Use Substance use: Occasionally Substance use type: marijuana Details: smokes daily-weekly marijuana depending on his activity Vital Signs and Lab Results Vital Signs Most Recent Vital Signs in EMR: Most Recent Vital Signs Temp Pulse Resp BP Pulse Ox 36.5 C 56 L 16 116/70 97 09/24/21 08:34 09/24/21 08:34 09/24/21 08:34 09/24/21 08:34 09/24/21 08:34 Lab Results Blood Type / Crossmatch: No Data to Display Complete Blood Count: White Blood Count 6.91 10^3/uL (4.4-10.8) 09/23/21 08:15 09/23/21 Red Blood Count 4.54 10^6/uL (4.36-5.78) 09/23/21 08:15 09/23/21 Hemoglobin 14.8 g/dL (13.5-17.5) 09/23/21 08:15 09/23/21 Hematocrit 45.2 % (40.0-50.0) 09/23/21 08:15 09/23/21 Platelet Count 239 10^3/uL (130-400) 09/23/21 08:15 09/23/21 Complete Metabolic Panel: 2 Sodium Level 139 mmol/L (136-145) 09/23/21 08:15 09/23/21 Potassium Level 5.3 mmol/L (3.5-5.1) H 09/23/21 08:15 09/23/21 Chloride Level 107 mmol/L (98-107) 09/23/21 08:15 09/23/21 Carbon Dioxide Level 26.5 mmol/L (21.0-32.0) 09/23/21 08:15 09/23/21 Blood Urea Nitrogen 19 mg/dL (7-18) H 09/23/21 08:15 09/23/21 Creatinine 0.9 mg/dL (0.70-1.30) 09/23/21 08:15 09/23/21 Estimated GFR/1.73 m2 >= 60.00 (mL/min/1.73m2) 09/23/21 08:15 09/23/21 Calcium Level 8.7 mg/dL (8.5-10.1) 09/23/21 08:15 09/23/21 Glucose Level 102 mg/dL (74-106) 09/23/21 08:15 09/23/21 Liver Function Panel: No Data to Display Coagulation Panel: No Data to Display Cardiac Panel: No Data to Display Arterial Blood Gas: No Data to Display Venous Blood Gas: No Data to Display Pancreas Panel: No Data to Display Thyroid Panel: No Data to Display Infectious Disease: Coronavirus (COVID-19)(PCR) Negative (Negative) 09/23/21 15:23 09/23/21 Coronavirus 2019 Source Nasal/Nares 09/23/21 15:23 09/23/21 Blood Cultures: No Data to Display Toxicology Panel: No Data to Display Imaging and Studies Imaging and Studies Study information below may be from another EMR and interpreted by another provider. Please see original notes in EMR for more complete details. EKG Summary: ECG Measurements Heart Rate 62 AXIS NJ 159 P 38 QRSd 94 QRS -20 QT 407 T64 QTc 415 <Conclusion> Sinus rhythm...normal P axis, V-rate 62, no stemi Anesthesia Assessment and Plan Anesthesia History Personal History: No History of Anesthesia Complications Family History: No Family History of Anesthesia Complications Exercise Tolerance Exercise Tolerance: Metabolic Equivalents>4 Cardiac & Pulmonary Exam Cardiac Exam: Normal S1/S2 Heart Sounds Pulmonary Exam: Clear Bilateral Breath Sounds Implantable Cardiac Device Does patient have a Pacemaker or an ICD?: No Airway Exam Known Difficult Airway: No Mallampati Class: 2 Mouth Opening: Normal (> 3cm) Thyromental Distance: Greater than 3 cm Neck Range of Motion: Full ROM Neck Circumference: Normal Teeth Condition: Normal Dentition ASA Classification ASA Score: ASA 2 Emergency Case?: No NPO Status NPO Status: NPO Clears >2 hours, Solids >8 hours Anesthesia Plan Resuscitation Status: Full Code Anesthesia Technique: Spinal Anesthesia Airway Planned: Natural Airway Monitors Used: Standard Monitors
[2021-09-24] MEDS: ceFAZolin 2 GM/50 ML BAG IVPB (11:33)
--- NOTE | 2021-09-24 12:54 | DI.RAD_ITS ---
Exam(s) XR HIP RT IN OR EXAM: XR HIP RT IN OR CLINICAL HISTORY: right total hip. TECHNIQUE: 2D digital imaging was performed. COMPARISON: No exams were available for comparison FINDINGS: Intraoperative fluoroscopy provided during right hip arthroplasty. Procedure report for details. Total fluoroscopy time 25.8 seconds Total clipped of dose 3.96mGy IMPRESSION: DATA REPOSITORY: RADIATION DOSE DELIVERED:
--- NOTE | 2021-09-24 13:55 | DSE_ITS ---
Discharge Plan Disposition Patient Disposition: HOME Condition: Good Discharge Details Reason For Visit: Right hip DJD Attending Provider: hCarly Gant Primary Care Provider: Jean Carlos David Home Meds and New Rx's Prescriptions: New celecoxib 200 mg capsule 200 mg PO BID PRN (Reason: pain) Qty: 60 1RF acetaminophen 500 mg tablet 1,000 mg PO Q8H PRN (Reason: pain) Qty: 90 3RF pantoprazole 40 mg tablet,delayed release (DR/EC) 40 mg PO DAILY Qty: 30 0RF oxycodone 5 mg tablet 5 mg PO Q4H Qty: 15 0RF Continued losartan 100 mg tablet 100 mg PO DAILY 0RF aspirin 325 mg tablet 325 mg PO DAILY 0RF Discharge Instructions Additional Instructions: Total Hip Discharge Instructions Activity: The most important activity is to walk. You should try to take short walks a few times a day. You have no restrictions on movement or positioning, but do not try to force what you do. You will find some stiffness and weakness with hip flexion (lifting your knee). Do not try to strengthen this too early, continue to practice walking and stairs and this will come. - Outpatient physical therapy can be helpful to help return you to a normal gait and improve your flexibility and strength. This can start around 2 weeks. For some patients, it?s not necessary. Usually this is determined at the time of discharge or at the first post-operative visit. - You should wear the MERRITT hose on both legs for 2 weeks. Dressing: Keep the surgical dressing in place for at least one week. After the first week it may be removed and replace with light gauze and tape or nothing. It may get wet after 3 days but avoid soaking the dressing. If it gets wet, just lightly pat dry. It is important to always keep some gauze between skin folds, especially when you are sitting. Spend some time with the wound exposed when you are lying flat as the incision does wrinkle onto itself. Medications: - You should take Tylenol and an anti-inflammatory Celebrex as your primary pain control medications. If the Celebrex is too expensive or not covered, please call the office for another alternative (Advil/Ibuprofen or Naproxen/Aleve). - You have been prescribed a stronger pain medication Oxycodone for breakthrough pain, take as needed as prescribed. - You have also been prescribed a stomach acid reduction agent Pantoprozole to help reduce stomach acid and reflux. -You take aspirin 325 mg at baseline -continue with medication for DVT prevention - If you have constipation you should take Colace or Miralax (both [id number]). It takes most people 3-4 days to have a bowel movement. Follow-up: 2 weeks If you have any acute concerns or questions, please do not hesitate to contact the office at [phone]. You may contact Dr. Gant with any questions after hours through the hospital at [phone] or on his cell phone at [phone]. Referrals: Charly Gant MD [ [facility] STAFF PHYSICIAN] - 10/07/21 9:00 am Equipment/Supplies: Walker Activity:: Activity as Tolerated Remove Dressings/Wound Care:: Do Not Remove Shower/Bathe:: Cover Diet:: As Tolerated Discharge Orders Discharge Orders: Discharge Order (Routine); Ordered 09/24/21 Ordered By: Charly Gant DS: Summary Time Spent with Patient providing and/or coordinating discharge services: Less than 30 minutes Status at Discharge Functional status at discharge: uses cane/walker Overall status at discharge: patient is progressing back to baseline Mental Status: mental status grossly normal Speech and Movement: speech and movement normal Mood: congruent mood Affect: normal affect Exam Psych Mental Status: mental status grossly normal Speech and Movement: speech and movement normal Mood: congruent mood Affect: normal affect DS: Data Vitals/I&O Vitals and I&O: Vital Signs Temperature 97.7 F 09/24/21 13:44 Pulse 46 L 09/24/21 13:44 Pulse Rhythm Regular 09/24/21 08:34 Respiratory Rate 15 09/24/21 13:44 Respiratory Depth Normal 09/24/21 08:34 Blood Pressure 114/71 09/24/21 13:44 Pulse Oximetry 98 09/24/21 13:44 Oxygen Delivery Method Room Air 09/24/21 13:44 Oxygen Flow Rate 0 09/24/21 08:34 Pain Level 0 09/24/21 13:44 Intake & Output 09/23/21 09/24/21 09/24/21 23:59 11:59 23:59 Intake Total 60 / 810 750 / 810 Output Total 150 / 150 Balance 60 / 660 600 / 660 Weight 227 lb 11.8 oz Intake: IV 60 / 810 750 / 810 Output: Estimated Blood Loss 150 / 150 Other: Emesis Description None PFSH All Active Problems Tick bite (Acute) Marijuana smoker (Acute) Hypertension (Chronic) Actinic keratosis (Acute) Hip pain (Acute) Degenerative joint disease of right hip (Chronic) Tubular adenoma (Acute) Medical History Bradycardia Surgical History History of colonoscopy with polypectomy (~07/12/21) Hx of hernia repair Family History Mother Hypertension Sister Hypertension Stroke Brother , 54 Hypertension Brother Hypertension Brother Hypertension Social History Smoking/Tobacco Use Status: Never Second Hand Exposure: No Smoking risk assessment performed?: Yes Alcohol Intake: former Drug use: Occasionally Substance use type: marijuana Details: smokes daily-weekly marijuana depending on his activity Caregiver/Support person: No Household members: none Communication Needs: None Do you need help understanding health information?: Rarely Pets and animals: No Sexually active: Yes Do you think of yourself as: straight/heterosexual Current gender identity: male What is your relationship status?: How often do you talk on the phone with friends or family?: three or more times per week How often do you get together with friends or relatives?: once per week Do you belong to any clubs or organized social groups?: no Panel score (0-1 are the most socially isolated patients): 1 Stephie/Samaritan: No preference Seatbelt use: always Helmet use: Yes Helmet use: always 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
[2021-09-24] MEDS: oxyCODONE 5 MG TAB PO ×2 (14:11→14:52)
--- NOTE | 2021-09-24 15:38 | W.ANESPOSTOP ---
Postoperative Evaluation Date, Time and Location Date Performed: 09/24/21 Time Performed: 15:39 Patient Location: Day Surgery Unit Vital Signs Most Recent Imported Vital Signs: Most Recent Vital Signs Temp Pulse Resp BP Pulse Ox 36.2 C L 46 L 16 128/72 99 09/24/21 15:32 09/24/21 15:32 09/24/21 15:32 09/24/21 15:32 09/24/21 15:32 Pain Score Most Recent Pain Score: Most Recent Pain Score Pain Level 4 09/24/21 15:32 Assessment Mental Status: Awake (Alert & Oriented to Patient Baseline) Airway and Respiratory Function: Patent airway with normal (patient baseline) respiratory exam Cardiovascular Function: Hemodynamically Stable Hydration Status: Adequately Hydrated Nausea & Vomiting: No Nausea or Vomiting Pain: Pain is tolerable per patient Peripheral Nerve Block: Patient did not receive a nerve block
--- NOTE | 2021-09-24 15:49 | PT.INIE ---
Date of service: 09/24/21 Time of Service: 15:49 PT Notes Visit Reasons: Right hip DJD Physical Therapy Day Surgery Initial Evaluation Date: 09/24/2021 Referring Doctor: TEO Bear PT Orders: PT CONSULT: S/P Ortho surgery Precautions: WBAT on right LE with AD. Patient Profile/Admitting Diagnosis: Jann is a 66-year-old male with degenerative joint disease of the right hip and is status post right anterior total arthroplasty on postoperative day 0. PMHX: Medical History?(Updated 09/16/21 @ 08:15 by Juliana Singleton) Bradycardia Surgical History?(Updated 07/24/21 @ 13:37 by Kimberley Urias RN) History of colonoscopy with polypectomy (~07/12/21) Social History/Home Situation: Lives in a cabin in kitchen with 4 steps to enter without rails. Independent with all aspects of ADLs prior to surgery. Still drives. Equipment Owned/DME: [facility], S[facility] Subjective: Agreeable to PT consult. Reports pain mostly located in his right knee that resolved with ambulation activity. Denies headache, chest pain, and lightheadedness throughout session. Objective: General Observation: Supine in bed. Cold pack to right hip. TDS in B legs. Mental Status: Alert and oriented x 4 Pain: 4/10 in the right knee that resolved with rest ROM: Right Lower Extremity: Hip flexion lacks the last 25% of hip flexion while seated at edge of bed. Hip abduction WFL. Knee flexion WFL. Knee extension WFL. Ankle dorsiflexion WFL. Ankle plantarflexion WFL. Left Lower Extremity: Hip flexion WFL. Hip abduction WFL. Knee flexion WFL. Ankle dorsiflexion WFL. Ankle plantarflexion WFL. Strength: Right Lower Extremity: Hip flexors 3 - /5. Hip abductor 4 - 5/5. Knee flexors 4 /5. Knee extensors 3+ /5. Ankle dorsiflexors 5/5. Ankle plantarflexors 5/5. Left Lower Extremity:Hip flexors 5/5. Hip abductors 5/5. Knee flexors 5/5. Knee extensors 5/5. Ankle dorsiflexors 5/5. Ankle plantarflexors 5/5. Sensation: Intact as to pain and light pressure in bilateral lower extremities. Bed Mobility/Transfers: Supine to sit independent Sit to stand contact-guard assist Stand to sit standby assist Bed to chair standby assist Gait: Instructed patient with level surface ambulation using front wheeled walker about 200 feet with step through gait pattern. Also trained patient with the use of bilateral axillary crutches for 50 feet with three-point gait pattern with standby assist provided. Pain in the right knee resolved with weight bearing. No buckling on right knee. No loss of balance. Stairs: Up and down 6 x 4 inch steps and 4 x 6 inch steps while holding onto a rail with one hand and on single-point cane on the other hand with step to gait pattern requiring standby assist. Also instructed with 6 x 4 inch steps and 4 x 6 inch steps using bilateral axillary crutches with standby assist using step to gait pattern. Balance: Static Sitting: Normal Dynamic Sitting: Normal Static Standing: Fair Dynamic Standing: Fair Special Tests: Mobility Limitations Standardized Measure [facility] AM-PAC 6 clicks Basic Mobility Inpatient Short Form: Raw Score: 24 CMS Score: 0% deficit Informed Consent/Education: Patient instructed in purpose of PT consult. Education and training on initial set of exercises that can be done at home have been completed with patient with reference to the [employer] yessi. Assessment: Jann requires the use of a front wheeled walker for all mobility ADL performance to maximize independence and reduce fall risk. Son who lives 45 minutes away can help out as needed. Patient presents with clinical signs and symptoms consistent with current/admitting diagnoses that have resulted to mobility limitations, gait instability, generalized weakness, and impairment of motor control as demonstrated by the following impairment level findings: 1. Decreased strength to right hip flexors 2. Impaired standing balance 3. Limitation of joint range of motion in right hip flexion 08475 moderate Impairments are contributing to the following functional limitations: 1. Inability to safely ambulate without assistive device 2. Increase completion time for mobility ADL performance 3. Increased fall risk Patient is assessed as a complexity based on the following: History: 66-year-old male with impairment level findings, functional limitations, and past medical history as indicated above Examination: Demonstrable impairment in strength, balance, and mobility level with underlying impairments and functional limitations as documented above Presentation: Evolving Decision Makin moderate complexity Goals: N/A. PT evaluation and 1-2 treatment sessions only for functional mobility training using recommended AD and for HEP instruction. Plan of Care/Treatment Plan: N/A. PT evaluation and 1-2 treatment session only for functional mobility training using recommended AD and for HEP instruction. DISCHARGE RECOMMENDATIONS: [] Home with no services [] [X] Home with services. Home when medically cleared by orthopedic surgeon. Will benefit from outpatient PT services to facilitate return to independent ADL performance and unassisted community ambulation. [] Home with outpatient PT [] [] SNF for continued rehabilitation [] [] Senior Care Care [] [] SNF versus LTC based on ability to participate and progress [] TREATMENT CODE/TIME: 55812 x 20 minutes, 33568 x 26 minutes beginning at 15:49 PM. Thank you for the opportunity to participate in the care of this patient. Leonela Ji PT, DPT, CLT [facility] [place], [place]
--- NOTE | 2021-09-24 21:20 | W.PM.OP ---
Date of service: 09/24/21 Time of Service: 12:55 Operative Note Operative Note DATE OF PROCEDURE: 09/24/21 PRE-OP DIAGNOSIS: Left Hip Osteoarthritis POST-OP DIAGNOSIS: same PROCEDURE: Right Anterior Total Hip Arthroplasty with Intraoperative Navigation SURGEON: Charly Gant Refer to Anesthesia Record ESTIMATED BLOOD LOSS: 150 PATHOLOGY: none sent COMPLICATIONS: None Patient was transported to: PACU Patient's condition: stable Implants: 1. Depuy [place] Acetabular Component, 56mm 2. Depuy Acetabular Liner, [id number] 3. Depuy Corail Standard Collared Femoral Stem, Size 12 4. Depuy Altrx Ceramic Femoral Head, Size 36+1.5mm Indications: I have seen Husam in clinic for symptoms of hip arthritis, confirmed with radiographic findings. Husam has exhausted nonoperative methods and was having significant limitations in daily function and desired better function and less pain. I discussed the technical details of a hip replacement. I explained the risks of the procedure to include, but not limited to, bleeding, infection, pain, stiffness, fracture, damage to nerves and vessels, damage to muscles and tendons, loosening, instability, leg length inequality, need for repeat procedure, blood clot and cardiopulmonary demise. Despite these risks, husam elected to proceed. Findings: There was significant signs of arthritis throughout the hip. Large osteophytes were present around the femoral head and neck as well as the acetabulum. Procedure Description: Husam was greeted in the preoperative holding area where the correct side was identified and marked. The consent was reviewed with the patient and signed. The history and physical was updated. All questions were answered. He was taken back to the operating room. A spinal anesthestic was then administered. The feet were wrapped with cast padding and Coban and then placed into the boot liners and then into the boots. Care was taken to protect the skin and make sure the heels were fully down and the boots were stable. The patient was then positioned onto the HANA table. Both legs were held in a neutral position. SCDs were applied. The patient was then slid down onto a peroneal post. Prophylactic antibiotics in the form of Cefazolin were administered. 1g of Tranxemic Acid was given intravenously within 30 minutes of incision. The right leg was then prepped with Chloraprep and draped in a standard fashion. A second prep with Chloraprep was performed prior to placement of a shower-curtain type drape with Iodine impregnated skin protection. A timeout to confirm correct identity, side and site, procedure, allergies, anesthesia, and medical concerns was performed. An obliquely oriented incision was made starting lateral to the ASIS and running distal over the Tensor Fascia Josefina (TFL) muscle belly toward the fibular head, approximately 10cm. The skin and soft tissue was dissected sharply, through Joy?s fascia, and to the fascia of the TFL. With the fascia and superior border of the IT band identified, the fascia was incised with a new knife just above any perforators from the IT band. The TFL muscle belly was bluntly dissected away from the fascia and moved laterally. The fat between TFL and rectus was identified to ensure the dissection was not within the TFL. Blunt dissection created space between abductors and the capsule and retractor was placed over the lateral femoral neck. The fibers of the rectus femoris tendon were identified and these were freed from the anterior capsule. A second cobra retractor was placed around the medial femoral neck. The TFL was further retracted laterally to show the deep fascia. Careful dissection through this layer identified three main crossing vessels of the lateral femoral circumflex. These were cauterized in multiple locations and then cut without any noticeable bleeding. The TFL was further released bluntly from the deep fascia to expose anterior hip capsule and fat The Donovan orthopaedic retractor was then placed beneath the TFL and against sartorius and medial soft tissues to protect and retract the soft tissues. A T-capsulotomy was then performed starting at the superior lateral acetabulum and moving distally to the intertrochanteric ridge. These capsular flaps were tagged with a No. 1 Ethibond and elevated from within. The capsular flaps were released to the shoulder of the lateral neck and to the lesser trochanter to give excellent visualization of the proximal femur. A neck osteotomy was performed using an oscillating saw based on preoperative templates. This cut started in the shoulder and of the lateral neck and exited medially. The saw was at all times directed medially to avoid injury to the greater trochanter. Gross traction was applied to the leg and the osteotomy opened. The femoral head was removed with a corkscrew, making sure to protect the TFL on its exit. Traction was released after head removal. This was measured on the back table to determine the starting reamer size. Portions of the rectus obscuring visualization were minimally elevated off the superior acetabulum. An anterior retractor was placed over the anterior wall between capsule and labrum and attached to the Gripper retraction system. The femur was rotated to 90 degrees and medial capsule was fully released until the lesser trochanter was palpable and visible; the femur was returned to 30 degrees. A posterior retractor was placed similarly between capsule and labrum. This provided excellent visualization. The contents of the cotyloid fossa were removed with electrocautery and the labrum was removed with a knife. There was a notable floor osteophyte. There was significant chondromalacia of the superior acetabulum. A large anterior acetabular osteophyte/calcified labrum was removed with a rongeur. Acetabular reaming began with a 52mm reamer. This first reaming was directed anterior to posterior and medial to get down to the true floor. This was inspected and reamed until the true floor was reached. The anterior retractor was then released and entry and exit was provided by traction on the capsular flaps. I then reamed sequentially up to a 56mm reamer where good fit was obtained. The larger reamers were oriented based on anatomical reference of the anterior and lateral schilling to ensure proper abduction and anteversion. Positioning and size was confirmed with the fluoroscopy. A 56mm Depuy [place] acetabular component was selected. The acetabulum was reamed around the periphery with the selected acetabular size to prevent a rim fit. The deep tissues were irrigated. The acetabular component was then impacted in a position of about 40-45 degrees of abduction and 15-20 degrees of anteversion, using the patient?s anatomy as the ultimate landmark. Fluoroscopy was used to confirm this. There was [facility] of the acetabular component and the inserting handle was removed. The acetabular liner, Depuy [id number] polyethylene liner, was inserted and lined up with the tines of the acetabular component. There was no soft tissue interposition. The liner was then impacted into position and confirmed to be well-seated. A portion of the tigist-articular cocktail was then injected around the acetabulum into the capsule and periosteum. This cocktail consisted of Ropivacaine (246mg), Epinephrine (0.5mg), Clonidine (0.08mg), and Ketorolac (30mg). The leg was rotated to 120 degrees. Any remaining medial capsule was released until the lesser trochanter was easily palpable. A retractor was placed medially. The lateral capsule was further released into the shoulder to allow access to the greater trochanter. A Nieto retractor was placed over the greater trochanter which allowed the trochanter to flip in front of the capsule for excellent exposure. The leg was brought down into maximal extension and 20 degrees of adduction while ensuring there was no impingement on the acetabulum. Any remnant capsule within the trochanter was released. Piriformis and obturator externis were identified and protected. There was excellent access to the proximal femur. The lateral neck remnant was removed with a rongeur. A blunt canal probe was used to identify the canal and trajectory for later broaching. A box osteotome initiated the broach course. A small curved rasp and a curved curette were used to work laterally. Broaching then began with a size 8 Corail broach. This was inserted manually around the trochanter and into the canal before mallet blows. The broach was seated to a few millimeters below the cut level based on the neck cut and the preoperative template. Sequential broaching was continued with the Receeptse pneumatic broaching device until a tight fit was obtained with good rotational control of the femur. A trial standard neck was inserted along with a +1.5 trial head. The leg was brought out of extension and adduction and then reduced with traction and internal rotation. The leg was stable anteriorly in a position of 30 degrees of extension and 90 degrees of external rotation. Fluoroscopy was used to ensure there was no fracture and the stem was seated well. Leg lengths were checked with an AP pelvis and pelvic reference points. [employer] Experience navigation system was used to confirm appropriate positioning and leg length and offset. Once content with the desired offset and leg lengths, the leg was brought back into extension, external rotation and adduction. The periosteum and surrounding tissue was injected with remaining portion of the tigist-articular cocktail. The proximal femur was irrigated as well as the deep tissues. The Depuy Corail standard collared stem, size 12, was then manually inserted into the proximal femur making sure to control rotation. It was then malleted into position with light blows, giving breaks to allow bone expansion and decrease risk of fracture. The selected Depuy Altrx Ceramic Head, size 36+1.5mm, was then placed onto the clean and dry trunnion and secured with impaction onto the tapered fit. The leg was brought back out of extension and adduction and reduced with traction and internal rotation. Stability was confirmed with no shuck at 90 degrees of external rotation and 30 degrees of extension. No impingement through range of motion arc. Final x-ray images were obtained with fluoroscopy to confirm adequate positioning and no intraoperative fracture. The deep tissues were thoroughly irrigated with Irrisept chlorhexadine solution. .The capsule was then reapproximated with the previously placed Ethibond sutures. The TFL fascia was finally closed with a No. 2 Stratafix, barbed suture. Deep tissues were then reapproximated with 0 Vicryl and a running 2-0 Vicryl. The skin was closed with a running 4-0 Monocryl in a subcuticular fashion. This was reinforced with skin glue. A Mepilex silver dressing was applied. At the end of the case, all counts were correct. Husam was transferred to the hospital bed without difficulty and suffering no apparent complication. Husam has a good prognosis. Physical therapy will start today and without restrictions, weight-bearing as tolerated. Aspirin 325mg daily will be used for DVT prophylaxis.
== END 2021-09-24 17:02 | disposition home or self-care (01) ==
PROVIDERS: PCP Nurse Practitioner Family; Visit Provider Student in an Organized Health Care Education/Training Program
PROC: (CPT 27130; principal; 2021-09-24 11:15)
DX: M16.11 Unilateral primary osteoarthritis, right hip (principal); I10 Essential (primary) hypertension; F12.90 Cannabis use, unspecified, uncomplicated; R00.1 Bradycardia, unspecified
CPT/HCPCS: 20985; 27130; C1776; 97162; 97530; 73501; J0690; J2405; J3010

== ENCOUNTER 2021-10-07 09:39 | Outpatient (CLI) | payer MEDICARE, SELFPAY ==
--- NOTE | 2021-10-07 08:45 | DI.RAD_ITS ---
Exam(s) XR HIP RT COMPLETE AP PELVIS EXAM: XR HIP RT COMPLETE AP PELVIS CLINICAL HISTORY: 1ST POST OP R [place]. TECHNIQUE: 2D digital imaging was performed. Two images were obtained. AP and lateral views were ob tained. COMPARISON: CR XR HIP RT COMPLETE AP PELVIS from 12/14/2020 XA XR HIP RT IN OR from 09/24/2021 FINDINGS: BONES: There are stable post operative changes present. No fracture or dislocation. JOINTS: The orthopedic hardware is in good position. Stable degenerative changes are seen in the lef t hip. SOFT TISSUE: Normal. IMPRESSION: Stable postoperative changes. DATA REPOSITORY: RADIATION DOSE DELIVERED:
== END 2021-10-07 09:40 | disposition home or self-care (01) ==
LOC: DIORS 09:42
PROVIDERS: PCP Nurse Practitioner Family; Referring Provider Nurse Practitioner Family; Visit Provider Student in an Organized Health Care Education/Training Program
DX: Z96.641 Presence of right artificial hip joint (principal)
CPT/HCPCS: 73502

== ENCOUNTER → 2021-11-04 09:06 | Outpatient (BNVA) | payer MEDICARE, SELFPAY | PROVIDERS: PCP Nurse Practitioner Family; Referring Provider Nurse Practitioner Family; Visit Provider Student in an Organized Health Care Education/Training Program | DX: Z47.1 Aftercare following joint replacement surgery (principal); Z96.641 Presence of right artificial hip joint ==

== ENCOUNTER 2022-01-15 17:01 | Outpatient (REF) | payer MEDICARE, SELFPAY ==
[2022-01-15 22:03] LABS: BUN 13 mg/dL (7-18); Calcium 9.1 mg/dL (8.5-10.1); Chloride 102 mmol/L (98-107); Glucose 96 mg/dL (74-106); Potassium 5.3 mmol/L (3.5-5.1); Sodium 138 mmol/L (136-145)
[2022-01-15 22:25] LABS: Abs Immature Grans 0.02 10^3/uL (0.0-0.06); Absolute Basophil Count 0.07 10^3/uL (0.0-0.2); Absolute Eosinophil Count 0.34 10^3/uL (0.0-0.7); Absolute Lymphocyte Count 1.14 10^3/uL (1.2-3.4); Absolute Monocyte Count 0.51 10^3/uL (0.1-0.8); Basophils % 0.9; Eosinophils % 4.5; HCT 45.2 % (40.0-50.0); Immature Grans % 0.3; MCH 33.3 pg (27.0-33.0); MCHC 33.2 % (32.0-36.0); MCV 100 fL (80-95); MPV 9.2 fL (8.0-11.0); Monocytes % 6.7; Neutrophils % 72.6; Platelet Count 280 10^3/uL (130-400); RDW 12.9 % (11.8-14.1); WBC 7.58 10^3/uL (4.4-10.8)
== END 2022-01-15 17:02 | disposition home or self-care (01) ==
LOC: LBN 17:01
PROVIDERS: PCP Nurse Practitioner Family; Visit Provider Nurse Practitioner Family
DX: R53.83 Other fatigue (principal); U09.9 Post COVID-19 condition, unspecified
CPT/HCPCS: 80048; 85025

== ENCOUNTER 2022-01-17 00:36 | Outpatient (CLI) | payer MEDICARE, SELFPAY ==
--- NOTE | 2022-01-17 07:00 | DI.RAD_ITS ---
Exam(s) XR CHEST 2V PA LATERAL EXAM: XR CHEST 2V PA LATERAL CLINICAL HISTORY: 30 days post covid; productive cough/fatigue,neg test 01/15/22,U07.1. TECHNIQUE: 2D digital imaging was performed. COMPARISON: No exams were available for comparison FINDINGS: 2 views: Heart size is normal. The mediastinum is not widened. Lungs are clear. No infiltrates nor pleural effusions. IMPRESSION: No acute pulmonary findings. DATA REPOSITORY: RADIATION DOSE DELIVERED:
== END 2022-01-17 00:56 ==
PROVIDERS: PCP Nurse Practitioner Family; Visit Provider Nurse Practitioner Family
DX: U07.1 COVID-19 (principal)
CPT/HCPCS: 71046

== ENCOUNTER 2022-12-26 01:57 | Outpatient (CLI) | payer MEDICARE, SELFPAY ==
[2022-12-26 12:57] LABS: Calculated LDL 198 mg/dL (<100); Cholesterol 268 mg/dL (<200); Estimated GFR 83.01 (mL/min/1.73m2); HDL Cholesterol 53 mg/dL (40-60); Potassium 5.5 mmol/L (3.5-5.1); Triglyceride 89 mg/dL (<150)
[2022-12-29 10:41] LABS: Lyme Ab w Rflx to Lyme Confirm Negative (Negative)
[2022-12-29 20:52] LABS: Anaplasma phagocytophilum Negative (Negative); B. miyamotoi PCR Negative (Negative); Babesia divergens/MO-1 Negative (Negative); Babesia duncani Negative (Negative); Babesia microti Negative (Negative); Ehrlichia chaffeensis Negative (Negative); Ehrlichia ewingii/canis Negative (Negative); Ehrlichia muris eauclairensis Negative (Negative)
== END 2022-12-26 01:58 | disposition home or self-care (01) ==
LOC: LOS 01:57
PROVIDERS: PCP Nurse Practitioner Family; Visit Provider Nurse Practitioner Family
DX: I10 Essential (primary) hypertension (principal); E66.9 Obesity, unspecified; M25.50 Pain in unspecified joint
CPT/HCPCS: 36415; 80061; 87798; 82565; 84132; 84443; 86618

== ENCOUNTER → 2023-01-16 00:20 | Outpatient (CLI) | payer MEDICARE, SELFPAY ==
--- NOTE | 2023-01-16 07:50 | DI.CT_ITS ---
Exam(s) CT HEAD WO EXAM: CT HEAD WO CLINICAL HISTORY: WINTERS >30 days, dizziness,R51.9. TECHNIQUE: Imaging Protocol: Axial computed tomography images with coronal and sagittal reformatted images were created and reviewed COMPARISON: CT CT BRAIN NECK CTA from 12/22/2019 FINDINGS: Ventricles and Extra axial spaces: Normal in size and morphology for the patient's age. Hemorrhage: None. Cerebral parenchyma: There is no evidence of an acute territorial infarct. Midline shift: None. Brainstem/Cerebellum: There does appear to be a partially empty sella. This is unchanged. Calvarium: Normal. Visualized Paranasal sinuses/Mastoids: Clear. Soft Tissues: Unremarkable. IMPRESSION: No acute intracranial process. RADIATION DOSE DELIVERED: 781.62mGy.cm Total DLP DATA REPOSITORY: All CT scans at this facility are submitted to the National Radiology Data Registry (NRDR) Dose Index Registry (DIR) with the [employer] (A[employer]). RADIATION OPTIMIZATION: All CT scans at this facility use at least one of these dose optimization te chniques: automated exposure control; mA and/or kV adjustment per patient size (includes targeted exa ms where dose is matched to clinical indication); or iterative reconstruction.
== END ==
PROVIDERS: PCP Nurse Practitioner Family; Visit Provider Nurse Practitioner Family
DX: R51.9 Headache, unspecified (principal)
CPT/HCPCS: 70450

== ENCOUNTER 2023-01-22 14:25 | Outpatient (CLI) | payer MEDICARE, SELFPAY ==
[2023-01-22 14:40] LABS: Abs Immature Grans 0.03 10^3/uL (0.0-0.06); Absolute Basophil Count 0.06 10^3/uL (0.0-0.2); Absolute Eosinophil Count 0.18 10^3/uL (0.0-0.7); Absolute Lymphocyte Count 2.12 10^3/uL (1.2-3.4); Basophils % 0.8; Eosinophils % 2.3; HCT 46.8 % (40.0-50.0); HGB 16.1 g/dL (13.5-17.5); Immature Grans % 0.4; Lymphocytes % 26.5; MCH 33.5 pg (27.0-33.0); MCHC 34.4 % (32.0-36.0); MCV 98 fL (80-95); MPV 8.6 fL (8.0-11.0); Monocytes % 6.3; Neutrophils % 63.7; Platelet Count 254 10^3/uL (130-400); RDW 12.9 % (11.8-14.1); RDW-SD 46.2 fL; WBC 7.99 10^3/uL (4.4-10.8)
[2023-01-22 15:30] LABS: Ferritin 124 ng/mL (26-388)
[2023-01-22 15:45] LABS: Iron 104 ug/dL (65-175); Total Iron Binding Capacity 312 ug/dL (250-450)
[2023-01-23 09:26] LABS: Transferrin 250 mg/dL (201-352)
== END 2023-01-22 14:26 | disposition home or self-care (01) ==
LOC: LBO 14:25
PROVIDERS: PCP Nurse Practitioner Family; Visit Provider Nurse Practitioner Family
DX: D50.9 Iron deficiency anemia, unspecified (principal)
CPT/HCPCS: 36415; 82728; 83540; 83550; 84466; 85025

== ENCOUNTER 2023-08-27 10:54 | Inpatient (IN) | payer MEDICARE, SELFPAY ==
[2023-08-27] VITALS (15 sets, daily range): BP systolic 127–170; BP diastolic 80–102; PULSE 50–95; RESP 14–21; TEMP 35.9–36.9; O2SAT 95–99; BMI 31.4
--- NOTE | 2023-08-27 11:15 | RT.EKG_ITS ---
APPROVED REPORT Exam: Resting ECG Reason for Exam: weakness Patient Location: E HR:59 bpm ECG Measurements Heart Rate 59 AXIS ID 155 P 36 QRSd 92 QRS -12 QT 396 T 35 QTc 394 Conclusion Sinus bradycardia...rate< 60
--- NOTE | 2023-08-27 11:15 | DI.CT_ITS ---
Exam(s) CT ABDOMEN PELVIS W EXAM: CT ABDOMEN PELVIS W CLINICAL HISTORY: abdominal pain, weakness. TECHNIQUE: Imaging Protocol: Axial computed tomography images with coronal and sagittal reformatted images were created and reviewed CONTRAST MATERIAL: Intravenous: Omnipaque 350 Contrast volume:100 ml Oral: / no COMPARISON: None FINDINGS: ABDOMEN and PELVIS: Lung Bases: No acute findings. Liver: Normal density. No measurable mass. Gallbladder and biliary tract: No radiodense calculus or biliary dilation. Pancreas: Somewhat atrophic. No abnormal calcifications or inflammatory process. No evidence of mass . Spleen: Normal. Kidneys: Normal size, contour and axis. No radiodense stones. No obstructive uropathy. No suspicious masses seen. Adrenal glands: No masses seen. Vasculature: Abdominal aorta non-dilated. Soft tissues: Left fatty containing inguinal hernia. Bladder: Mild wall thickening. No calculi.No focal mass. Bowel: No obstruction. Multiple diverticula noted involving the mid jejunum. There is inflammation involving anterior loops of mid jejunum consistent with diverticulitis. There is stranding in the bell rrounding fat with multiple air bubbles consistent with perforation. No evidence of abscess. Divert iculosis also present in the colon. No colonic diverticulitis. Appendix normal. Peritoneal cavity: No ascites. Bones: Right hip prosthesis. Degenerative changes in the lumbar spine. Reproductive organs: Within normal limits. Lymph nodes: Mildly enlarged mesenteric lymph nodes in the mid abdomen. IMPRESSION:: Small-bowel diverticulitis in the mid jejunum with perforation. No abscess. Findings called to Abby Linton of the emergency department. RADIATION DOSE DELIVERED: Total DLP DATA REPOSITORY: All CT scans at this facility are submitted to the National Radiology Data Registry (NRDR) Dose Index Registry (DIR) with the [employer] (ACR). RADIATION OPTIMIZATION: All CT scans at this facility use at least one of these dose optimization te chniques: automated exposure control; mA and/or kV adjustment per patient size (includes targeted exa ms where dose is matched to clinical indication); or iterative reconstruction.
[2023-08-27 11:38] LABS: Abs Immature Grans 0.06 10^3/uL (0.0-0.06); Absolute Eosinophil Count 0.18 10^3/uL (0.0-0.7); Absolute Monocyte Count 0.98 10^3/uL (0.1-0.8); Absolute Neutrophil Count 8.58 10^3/uL (1.2-6.7); Basophils % 0.4; Eosinophils % 1.6; HCT 43.6 % (40.0-50.0); Immature Grans % 0.5; Lymphocytes % 13.2; MCH 33.1 pg (27.0-33.0); MCHC 34.4 % (32.0-36.0); MCV 96 fL (80-95); MPV 8.7 fL (8.0-11.0); Monocytes % 8.6; Neutrophils % 75.7; Platelet Count 321 10^3/uL (130-400); RBC 4.53 10^6/uL (4.36-5.78); RDW 12.4 % (11.8-14.1); RDW-SD 44.2 fL; WBC 11.34 10^3/uL (4.4-10.8)
[2023-08-27] MEDS: Normal Saline 1,000 ML 1000 ML IV ×2 (11:43→13:45)
[2023-08-27 11:48] LABS: Absolute Basophil Count 0.05 10^3/uL (0.0-0.2)
[2023-08-27 11:52] LABS: Bilirubin Negative (Negative); Blood Negative (Negative); Clarity Clear (Clear); Glucose Negative (Negative); Ketones Negative (Negative); Leukocyte Esterase Negative (Negative); Nitrite Negative (Negative); pH 5.5 (5-8)
[2023-08-27 12:04] LABS: ALT 81 U/L (16-63); AST 59 U/L (15-37); Albumin 2.8 g/dL (3.4-5.0); Alkaline Phosphatase 204 U/L (46-116); Anion Gap 14.5 mmol/L (3-11); BUN 14 mg/dL (7-18); CO2 20.5 mmol/L (21.0-32.0); CREATININE 1.1 mg/dL (0.70-1.30); Calcium 9.1 mg/dL (8.5-10.1); Chloride 102 mmol/L (98-107); Creatine Kinase 78 U/L (39-308); Estimated GFR 74.04 (mL/min/1.73m2); Glucose 106 mg/dL (74-106); Magnesium 2.1 mg/dL (1.8-2.4); Potassium 4.2 mmol/L (3.5-5.1); Sodium 137 mmol/L (136-145); TSH (W/Ref FT4) 2.04 uIU/mL (0.36-3.74); Total Protein 7.5 g/dL (6.4-8.2); Troponin I < 50 ng/L (< or =60)
--- NOTE | 2023-08-27 12:14 | ED.GENADUL_ITS ---
Discharge Plan Disposition Patient Disposition: Admit to [facility] Condition: Serious Discharge Details Chief Complaint: GenMedical Clinical Impression: Peritonitis (acute) generalized, Small bowel perforation Attending Provider: Rashi Cerda Primary Care Provider: Jean Carlos David ED Provider: Abby Linton General Date/Time Provider Initiated Documentation: 08/27/23 11:14 . HPI Narrative: This 67-year-old male presents with report of fatigue since traveling for approximately 5 hours 2 weeks ago. He states he is also had some abdominal pain. He does smoke marijuana daily and states that he has been experiencing anorexia and decreased interest in smoking which is unusual for him. He denies any chest pain, does report some mild shortness of breath which he mostly contributes to fatigue. Denies any myalgias. Denies any known tick bites. Denies any chest pain or shortness of breath while traveling per patient. Denies any falls or injuries. Denies nausea or vomiting. Reports been experiencing some constipation which is atypical for him. Related Data Home Medications Medication Instructions Recorded Confirmed aspirin 325 mg tablet 325 mg PO DAILY PRN 01/15/22 08/27/23 triamcinolone acetonide 0.1 % 1 applic topical BID #15 grams 01/22/23 08/27/23 topical cream losartan 100 mg tablet 100 mg PO DAILY #90 tabs 02/26/23 08/27/23 cyclobenzaprine 10 mg tablet 10 mg PO TID PRN muscle spasm #12 03/20/23 08/27/23 tabs Previous Rx's Medication Instructions Recorded triamcinolone acetonide 0.1 % 1 applic topical BID #15 grams 01/22/23 topical cream losartan 100 mg tablet 100 mg PO DAILY #90 tabs 02/26/23 cyclobenzaprine 10 mg tablet 10 mg PO TID PRN muscle spasm #12 03/20/23 tabs Allergies Allergy/AdvReac Type Severity Reaction Status Date / Time No Known Allergies Allergy Verified 08/27/23 11:09 General Stated Complaint: GenMedical TALIB: 3 Course Vital Signs Vital signs: Vital Signs Temperature 36.2 C L 08/27/23 10:59 Pulse 95 H 08/27/23 10:59 Respiratory Rate 16 08/27/23 10:59 Blood Pressure 161/102 H 08/27/23 10:59 Pulse Oximetry 99 08/27/23 10:59 Temperature 36.2 C L 08/27/23 10:59 Pulse 95 H 08/27/23 10:59 Respiratory Rate 16 08/27/23 11:10 Respiratory Effort Normal, Non-Labored 08/27/23 11:10 Respiratory Depth Normal 08/27/23 11:10 Respiratory Pattern Normal 08/27/23 11:10 Blood Pressure 161/102 H 08/27/23 10:59 Pulse Oximetry 99 08/27/23 10:59 Lab/Test Results Lab/Test Results: Laboratory Tests Range/Units 08/27/23 08/27/23 11:32 11:41 WBC (4.4-10.8) 10^3/uL 11.34 H RBC (4.36-5.78) 10^6/uL 4.53 Hgb (13.5-17.5) g/dL 15.0 Hct (40.0-50.0) % 43.6 MCV (80-95) fL 96 H MCH (27.0-33.0) pg 33.1 H MCHC (32.0-36.0) % 34.4 RDW (11.8-14.1) % 12.4 Plt Count (130-400) 10^3/uL 321 MPV (8.0-11.0) fL 8.7 Immature Gran % 0.5 Neutrophils % 75.7 Lymphocytes % 13.2 Monocytes % 8.6 Eosinophils % 1.6 Basophils % 0.4 Nucleated RBC % (0.0-0.3) % 0.0 Absolute Neutrophils (1.2-6.7) 10^3/uL 8.58 H Absolute Lymphocytes (1.2-3.4) 10^3/uL 1.50 Absolute Monocytes (0.1-0.8) 10^3/uL 0.98 H Absolute Eosinophils (0.0-0.7) 10^3/uL 0.18 Absolute Basophils (0.0-0.2) 10^3/uL 0.05 Sodium (136-145) mmol/L 137 Potassium (3.5-5.1) mmol/L 4.2 Chloride (98-107) mmol/L 102 Carbon Dioxide (21.0-32.0) mmol/L 20.5 L Anion Gap (3-11) mmol/L 14.5 H BUN (7-18) mg/dL 14 Creatinine (0.70-1.30) mg/dL 1.1 Est GFR (CKD-EPI 2020) (mL/min/1.73m2) 74.04 Glucose (74-106) mg/dL 106 Calcium (8.5-10.1) mg/dL 9.1 Magnesium (1.8-2.4) mg/dL 2.1 Total Bilirubin (0.2-1.0) mg/dL 1.0 AST (15-37) U/L 59 H ALT (16-63) U/L 81 H Alkaline Phosphatase (46-116) U/L 204 H Creatine Kinase (39-308) U/L 78 Troponin I (< or =60) ng/L < 50 Total Protein (6.4-8.2) g/dL 7.5 Albumin (3.4-5.0) g/dL 2.8 L TSH (0.36-3.74) uIU/mL 2.04 Urine Color (Yellow) Yellow Urine Clarity (Clear) Clear Urine pH (5-8) 5.5 Ur Specific [place] (1.005-1.025) 1.020 Urine Protein (Neg-Trace) mg/dL Negative Urine Ketones (Negative) mg/dL Negative Urine Blood (Negative) Negative Urine Nitrite (Negative) Negative Urine Bilirubin (Negative) Negative Urine Urobilinogen (Up to 0.2) mg/dL 1.0 H Ur Leukocyte Esterase (Negative) Negative Urine Glucose (Negative) mg/dL Negative Medical Decision Making This 67-year-old male presents with abdominal pain and malaise which started after shoveling 2 weeks ago Presents secondary to persistent fatigue On exam, he has peritonitis, will order CT abdomen and pelvis diagnostic labs, vitals remained stable, hemodynamically Discussed results of CT with Dr. Lan Very mild leukocytosis at 11,000, mild elevation in transaminases AST and ALT when compared to prior, urinalysis does not show evidence of acute abnormality, chemistry with evidence of dehydration Blood cultures and lactate ordered Will initiate IV antibiotics, CT shows evidence of diverticulitis to small intestine with perforation Discussed the case with on-call locum surgeon, Dr. Cerda he will take patient to the operating room Patient agreeable to plan, full CODE STATUS Quality:SDOH Health Related Social Needs: No Data to Display Critical Care Time Critical Care Time Attestation: Approximately 35 minutes of critical care time secondary to acute peritonitis with small bowel perforation , telemetry monitoring, diagnostic lab interpretation review, CT interpretation and review, discussion with on-call radiologist, Dr. Lan, IV fluid resuscitation, IV antibiotics PFSH All Active Problems (Updated 08/27/23 @ 15:30 by TEO Amos) Diverticulitis, jejunum (Acute) Small bowel perforation (Acute) Peritonitis (acute) generalized (Acute) Skin lesion (Acute) Headache (Acute) Hyperlipidemia (Acute) Joint pain (Acute) Marijuana smoker (Acute) Hypertension (Chronic) Actinic keratosis (Acute) Tubular adenoma (Acute) Medical History (Updated 08/27/23 @ 15:30 by TEO Amos) Persistent fatigue after COVID-19 COVID-19 Bradycardia Surgical History (Updated 02/14/22 @ 09:13 by Jean Carlos David NP) 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) Hx of hernia repair History of colonoscopy with polypectomy (~07/12/21) Family History Mother Hypertension Sister Hypertension Stroke Brother , 54 Hypertension Brother Hypertension Brother Hypertension Social History (Updated 03/23/23 @ 08:11 by Lesli Davenport) Smoking/Tobacco Use Status: Never Second Hand Exposure: Yes Smoking risk assessment performed?: Yes Alcohol Intake: former Drug use: Daily Substance use type: marijuana Details: smokes daily-weekly marijuana depending on his activity Adopted: No Caregiver/Support person: No Foster care: No Household members: none Housing: other Number of Children: 2 number of grandchildren: 1 Communication Needs: None Do you need help understanding health information?: Never Pets and animals: No Sexually active: No Do you think of yourself as: straight/heterosexual Current gender identity: male What is your relationship status?: How often do you talk on the phone with friends or family?: three or more times per week How often do you get together with friends or relatives?: once per week Do you belong to any clubs or organized social groups?: no Panel score (0-1 are the most socially isolated patients): 1 Stephie/Anglican: No preference Seatbelt use: always Helmet use: Yes Helmet use: always Drive 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
[2023-08-27] MEDS: Omnipaque 350 MG/ML 100 ML BTL IJ (12:29)
[2023-08-27] MEDS: Normal Saline - Diluent 50 ML VIAL IJ (12:32)
--- NOTE | 2023-08-27 12:36 | DI.RAD_ITS ---
Exam(s) XR CHEST 2V PA LATERAL EXAM: XR CHEST 2V PA LATERAL CLINICAL HISTORY: weakness, shortness of breath TECHNIQUE: 2D digital imaging was performed. Two views. COMPARISON: CR XR CHEST 2V PA LATERAL from 01/17/[address] ABDOMEN PELVIS W from 08/27/2023 FINDINGS: HEART: Normal size. Aorta: Not dilated. PULMONARY VASCULATURE: Normal. LUNGS: Clear. PLEURAL SPACE: No pleural effusion or pneumothorax. BONE:Old right rib fractures. Mild degenerative changes in the spine. Soft tissues: Unremarkable. IMPRESSION: No acute abnormality. DATA REPOSITORY: RADIATION DOSE DELIVERED:
[2023-08-27 13:33] LABS: Lipase 23 U/L (16-77)
--- NOTE | 2023-08-27 14:14 | SCONE_ITS ---
Date of service: 08/27/23 Time of Service: 13:37 Assessment and Plan Assessment and plan (1) Diverticulitis, jejunum: Status: Acute Assessment and plan: Small bowel diverticulosis with diverticulitis, and associated perforation -Proceed with emergency surgery today -IV antibiotics now -N.p.o. -Informed consent discussion completed -Informed consent document to be signed before surgery -Discussed risks of nonsurgical management, as well as risks of surgery, we discussed complications associate with surgery, and prolonged hospitalization -I answered all of his questions today (2) Small bowel perforation: Status: Acute Assessment and plan: Plan to perform small bowel resection of perforated segment with associated diverticulosis (3) Peritonitis (acute) generalized: Status: Acute Assessment and plan: Definitive surgical management of perforated jejunal diverticulitis will address peritonitis -Treatment before worsening of abdominal condition -Surgical management to reduce risk of progression to intra-abdominal sepsis (4) Hypertension: Status: Chronic Assessment and plan: Hold antihypertensives at this time Qualifiers: Hypertension type: primary hypertension Qualified Code(s): I10 - Essential (primary) hypertension (5) Hyperlipidemia: Status: Acute Assessment and plan: Holding hyperlipidemia medication at this time Qualifiers: Hyperlipidemia type: mixed hyperlipidemia Qualified Code(s): E78.2 - Mixed hyperlipidemia History of Present Illness Narrative: This is a 67-year-old male who presented to the [facility] for evaluation of malaise, fatigue, decreased appetite, and abdominal pain. He reports not feeling well for approximately 10 days. The onset of his symptoms have been slow, insidious. Initially he just did not feel well, no acute event, no memorable incident. Over the last 10 days he has had subjective fevers, chills, decreased appetite, intermittent nausea, no vomiting, no changes in bowel habits. At presentation he underwent appropriate evaluation including diagnostic labs, diagnostic imaging. Diagnostic labs remarkable for elevated white blood cell count, leukocytosis, diagnostic imaging most remarkable for evidence of perforation, and mid jejunal diverticulosis with jejunal diverticulitis. On examination he has evidence of peritonitis, he is extremely tender. We discussed my recommendation today to proceed with surgery, for diagnostic laparoscopy, identify location of the segment of small bowel, with planned resection of the associated segment resulting in illness. We discussed there are risks of nonsurgical management, including treatment with IV antibiotics, bowel rest, however this jejunal diverticulitis is a completely distinct illness compared with surgical management of colonic diverticulosis with diverticulitis. The small bowel is associated with high volume passage each day, up to 6 L from associated gastric contents, saliva, pancreatic secretions, liver and biliary enzymes, leading to persistent leakage of enteric contents into the peritoneal compartment. My recommendation is for emergent surgical management, to definitively correct the issue, and resolve any future bouts that could be associated with jejunal diverticulitis. We discussed other risks including intra-abdominal adhesions, we discussed development of intra-abdominal sepsis, prolonged illness, need for higher level of care if there is worsening of his condition. The goal of surgical management today is to shorten the duration of his illness, provide definitive surgical management, and to allow for a speedy recovery. We discussed risks of surgery including bleeding, need for blood transfusion, abscess, infection, we discussed 1% risk of returning to the OR for management of postprocedural bleeding. We discussed there is risks of injury to surrounding structures including adjacent small bowel, we discussed there is a approximately 1000 risk of anastomotic breakdown or leak. I answered all of his questions today Consults Consult date: 08/27/23 Review of Systems Narrative: Review of systems is remarkable as noted above, abdominal pain, discomfort, decreased appetite, nausea, subjective fevers, subjective chills. No changes in his bowel habits, no blood per rectum, no hematemesis. No chest pain. No shortness of breath. PFSH All Active Problems (Updated 08/27/23 @ 14:21 by Rashi Cerda MD) Diverticulitis, jejunum (Acute) Small bowel perforation (Acute) Peritonitis (acute) generalized (Acute) Skin lesion (Acute) Headache (Acute) Hyperlipidemia (Acute) Joint pain (Acute) Marijuana smoker (Acute) Hypertension (Chronic) Actinic keratosis (Acute) Tubular adenoma (Acute) Medical History (Updated 08/27/23 @ 14:21 by Rashi Cerda MD) Persistent fatigue after COVID-19 COVID-19 Bradycardia Surgical History (Updated 02/14/22 @ 09:13 by Jean Carlos David NP) 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) Hx of hernia repair History of colonoscopy with polypectomy (~07/12/21) Family History Mother Hypertension Sister Hypertension Stroke Brother , 54 Hypertension Brother Hypertension Brother Hypertension Social History (Updated 03/23/23 @ 08:11 by Lesli Davenport) Smoking/Tobacco Use Status: Never Second Hand Exposure: Yes Smoking risk assessment performed?: Yes Alcohol Intake: former Drug use: Daily Substance use type: marijuana Details: smokes daily-weekly marijuana depending on his activity Adopted: No Caregiver/Support person: No Foster care: No Household members: none Housing: other Number of Children: 2 number of grandchildren: 1 Communication Needs: None Do you need help understanding health information?: Never Pets and animals: No Sexually active: No Do you think of yourself as: straight/heterosexual Current gender identity: male What is your relationship status?: How often do you talk on the phone with friends or family?: three or more times per week How often do you get together with friends or relatives?: once per week Do you belong to any clubs or organized social groups?: no Panel score (0-1 are the most socially isolated patients): 1 Stephie/Adventist: No preference Seatbelt use: always Helmet use: Yes Helmet use: always Drive intox 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 Working smoke detector in home: Yes Carbon monox detector in home: Yes Firearms in home: Yes Do you feel safe at home: Yes Do you feel safe in your relationship?: Yes Exam Narrative Exam Narrative: gen: moderate distress, uncomfortable appearing Neuro: No focal neurologic deficits Psych: He is a good historian, responds appropriately, makes good eye contact HEENT: Atraumatic, normocephalic Neck: Trachea midline Chest: Bilateral excursion with respiration, does not localize chest pain Abdomen: Generalized peritonitis, diffusely tender in the periumbilical region, there is rebound and there is guarding, history of right inguinal hernia, well- healed incision MSK: History of right hip total arthroplasty, there is a well-healed right anterior approach incision Integument: No lacerations, no abrasions, normal appearing skin Results Last Vital Signs Temp 97.2 F L 08/27/23 10:59 Pulse 55 L 08/27/23 14:06 Resp 14 08/27/23 14:06 BP 145/82 H 08/27/23 14:06 Pulse Ox 98 08/27/23 14:06 Labs 08/27/23 11:32 08/27/23 11:32 Labs: Laboratory Results - last 24 hr 08/27/23 08/27/23 08/27/23 11:32 11:41 13:00 WBC 11.34 H RBC 4.53 Hgb 15.0 Hct 43.6 MCV 96 H MCH 33.1 H MCHC 34.4 RDW 12.4 Plt Count 321 MPV 8.7 Immature Gran % 0.5 Neutrophils % 75.7 Lymphocytes % 13.2 Monocytes % 8.6 Eosinophils % 1.6 Basophils % 0.4 Nucleated RBC % 0.0 Absolute Neutrophils 8.58 H Absolute Lymphocytes 1.50 Absolute Monocytes 0.98 H Absolute Eosinophils 0.18 Absolute Basophils 0.05 Sodium 137 Potassium 4.2 Chloride 102 Carbon Dioxide 20.5 L Anion Gap 14.5 H BUN 14 Creatinine 1.1 Est GFR (CKD-EPI 2020) 74.04 Glucose 106 Calcium 9.1 Magnesium 2.1 Total Bilirubin 1.0 AST 59 H ALT 81 H Alkaline Phosphatase 204 H Creatine Kinase 78 Troponin I < 50 Total Protein 7.5 Albumin 2.8 L Lipase 23 TSH 2.04 Urine Color Yellow Urine Clarity Clear Urine pH 5.5 Ur Specific [place] 1.020 Urine Protein Negative Urine Ketones Negative Urine Blood Negative Urine Nitrite Negative Urine Bilirubin Negative Urine Urobilinogen 1.0 H Ur Leukocyte Esterase Negative Urine Glucose Negative Imaging Abdomen CT scan report/results: report reviewed and image reviewed
--- NOTE | 2023-08-27 14:22 | ANES.PREOP_ITS ---
General Info Date of Service Date Performed: 08/27/23 Height: 5 ft 11 in Weight: 102.058 kg Body Mass Index (BMI): 31.4 Surgical Procedure: Operation Date: 08/27/23 14:55 Proposed Procedure Side Surgeon p Exploratory Laparoscopy Rashi Cerda MD Meds Allergies and Home Medications Allergies Allergy/AdvReac Type Severity Reaction Status Date / Time No Known Allergies Allergy Verified 08/27/23 11:09 Home Medication Medication Instructions Recorded aspirin 325 mg tablet 325 mg PO DAILY PRN 01/15/22 triamcinolone acetonide 0.1 % 1 applic topical BID #15 grams 01/22/23 topical cream losartan 100 mg tablet 100 mg PO DAILY #90 tabs 02/26/23 cyclobenzaprine 10 mg tablet 10 mg PO TID PRN muscle spasm #12 03/20/23 tabs Current Visit Medications: Current Medications Generic Name Dose Route Start Last Admin Trade Name Freq PRN Reason Stop Dose Admin Iohexol 100 ml 08/27/23 12:30 08/27/23 12:29 Omnipaque 350 Mg/Ml 100 Ml Btl IJ 09/26/23 23:59 100 ml DIRECTED ANDREA Administration Sodium Chloride 50 ml 08/27/23 12:45 08/27/23 12:32 Normal Saline - Diluent 50 Ml Vial IJ 50 ml .FOR DI USE ANDREA Administration PFSH Active Problems Active Problems: Problem Status Onset Code Diverticulitis, jejunum K57.12 Small bowel perforation K63.1 Peritonitis (acute) generalized K65.0 Skin lesion L98.9 Headache R51.9 Hyperlipidemia E78.5 Joint pain M25.50 Marijuana smoker F12.90 Hypertension I10 Actinic keratosis L57.0 Tubular adenoma D36.9 Medical History Medical History (Updated 08/27/23 @ 14:21 by Rashi Cerda MD) Persistent fatigue after COVID-19 COVID-19 Bradycardia Medical History Comments:: regular marijauna smoker; last afternoon 5/2 Surgical History Surgical History (Updated 02/14/22 @ 09:13 by Jean Carlos David NP) 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) Hx of hernia repair History of colonoscopy with polypectomy (~07/12/21) Tobacco Smoking/Tobacco Use Status: Never Passive smoking exposure: Yes Second hand exposure: Yes Alcohol Alcohol Intake: former Substance Use Substance use: Daily Substance use type: marijuana Details: smokes daily-weekly marijuana depending on his activity Vital Signs and Lab Results Vital Signs Most Recent Vital Signs in EMR: Most Recent Vital Signs Temp Pulse Resp BP Pulse Ox 36.2 C L 55 L 14 145/82 H 98 08/27/23 10:59 08/27/23 14:06 08/27/23 14:06 08/27/23 14:06 08/27/23 14:06 Lab Results 08/27/23 11:32 08/27/23 11:32 Blood Type / Crossmatch: 2 No Data to Display Complete Blood Count: 2 White Blood Count 11.34 10^3/uL (4.4-10.8) H 08/27/23 11:32 Red Blood Count 4.53 10^6/uL (4.36-5.78) 08/27/23 11:32 Hemoglobin 15.0 g/dL (13.5-17.5) 08/27/23 11:32 Hematocrit 43.6 % (40.0-50.0) 08/27/23 11:32 Platelet Count 321 10^3/uL (130-400) 08/27/23 11:32 Venous Blood Lactate Pending 08/27/23 12:59 Complete Metabolic Panel: 2 Sodium 137 mmol/L (136-145) 08/27/23 11:32 Potassium 4.2 mmol/L (3.5-5.1) 08/27/23 11:32 Chloride 102 mmol/L (98-107) 08/27/23 11:32 Carbon Dioxide 20.5 mmol/L (21.0-32.0) L 08/27/23 11:32 BUN 14 mg/dL (7-18) 08/27/23 11:32 Creatinine 1.1 mg/dL (0.70-1.30) 08/27/23 11:32 Est GFR (CKD-EPI 2020) 74.04 (mL/min/1.73m2) 08/27/23 11:32 Magnesium 2.1 mg/dL (1.8-2.4) 08/27/23 11:32 Calcium 9.1 mg/dL (8.5-10.1) 08/27/23 11:32 Albumin 2.8 g/dL (3.4-5.0) L 08/27/23 11:32 Glucose 106 mg/dL (74-106) 08/27/23 11:32 Liver Function Panel: 2 Alanine Aminotransferase (ALT/SGPT) 81 U/L (16-63) H 08/27/23 1 1:32 Aspartate Amino Transf (AST/SGOT) 59 U/L (15-37) H 08/27/23 11: 32 Coagulation Panel: 2 No Data to Display Cardiac Panel: 2 Troponin I < 50 ng/L (< or =60) 08/27/23 Creatine Kinase 78 U/L (39-308) 08/27/23 Arterial Blood Gas: 2 No Data to Display Venous Blood Gas: 2 No Data to Display Pancreas Panel: 2 Lipase 23 U/L (16-77) 08/27/23 13:00 Thyroid Panel: 2 Thyroid Stimulating Hormone (TSH) 2.04 uIU/mL (0.36-3.74) 08/26 11:32 Infectious Disease: 2 No Data to Display Blood Cultures: 2 No Data to Display Toxicology Panel: 2 No Data to Display Imaging and Studies Imaging and Studies Study information below may be from another EMR and interpreted by another provider. Please see original notes in EMR for more complete details. EKG Summary: 09/15: sinus. Anesthesia Assessment and Plan Anesthesia History Personal History: No History of Anesthesia Complications Family History: No Family History of Anesthesia Complications Exercise Tolerance Exercise Tolerance: Metabolic Equivalents>4 Cardiac & Pulmonary Exam Cardiac Exam: Normal S1/S2 Heart Sounds Pulmonary Exam: Clear Bilateral Breath Sounds Implantable Cardiac Device Does patient have a Pacemaker or an ICD?: No Airway Exam Known Difficult Airway: No Mallampati Class: 2 Mouth Opening: Normal (> 3cm) Thyromental Distance: Greater than 3 cm Neck Range of Motion: Full ROM Neck Circumference: Normal Teeth Condition: Normal Dentition ASA Classification ASA Score: ASA 2 Emergency Case?: Yes NPO Status NPO Status: NPO Clears >2 hours, Solids >8 hours Anesthesia Plan Resuscitation Status: Full Code Anesthesia Technique: General Anesthesia Airway Planned: Endotracheal Tube Monitors Used: Standard Monitors Preoperative Comments:: 67 yo male for exp laparoscopy for bowel obstruction. Sig PMHx: HTN, cannabis, denies major.
[2023-08-27] MEDS: Lactated Ringers 1,000 ML 30 ML IV (15:02)
[2023-08-27] MEDS: PIPERACILLIN/TAZO 4.5 GM in Normal Saline 100 ML IVPB (15:18)
[2023-08-27 15:29] LABS: Lactate 1.5 mmol/L (0.6-1.4)
--- NOTE | 2023-08-27 15:40 | W.ANESVAS ---
Midline Placement Date Performed: 08/27/23 Procedure Time: 15:08 Requesting Provider: Rashi Cerda Procedure Location: Operating Room Sedation Given (Indicate Dose Given): No Sedation given Patient Mental Status: Performed under general anesthesia Sterility: Hand Hygiene, Surgical Cap, Surgical Mask, Sterile Gloves, Sterile Drape/Sheet and Chlorhexidine Laterality: Left Insertion Site: Basilic Midline Device: PowerGlide Pro 18G Catheter Length: 10 cm Midline Procedure Procedure: Vessel accessed with catheter over needle, Guidewire placed with ease, Catheter placed without resistance and Guidewire removed Dressing: Tegaderm Applied and Statlock Applied Blood Return: Present Flushes: Easily Ultrasound: Sterile probe cover and gel used Ultrasound Image Saved?: Yes Number of Attempts (See previous attempts in note section): 1 Procedure Tolerated: No Complications and Patient tolerated well Procedure Outcome: Successful Performed By: Darius Gordon
[2023-08-27] MEDS: Bupivacaine LIPOSOME/PF 133 MG/10 ML VIAL IJ (15:47)
[2023-08-27] MEDS: Normal Saline 20 ML VIAL (15:47)
[2023-08-27] MEDS: Bupivacaine 0.25% Pres-Free 30 ML VIAL (15:47)
--- NOTE | 2023-08-27 17:55 | ROE_ITS ---
Date of service: 08/27/23 Time of Service: 17:55 Operative Note Operative Note DATE OF PROCEDURE: 08/27/23 PRE-OP DIAGNOSIS: Perforated small bowel POST-OP DIAGNOSIS: other Intra-abdominal abscess, perforated small bowel, small bowel diverticulosis PROCEDURE: Laparoscopic lysis of adhesions, abscess drainage, conversion to open-small bowel resection with [id number] anastomosis SURGEON: Rashi Cerda ANESTHESIA TYPE: Local By Surgeon and General LMA/ETT Refer to Anesthesia Record ESTIMATED BLOOD LOSS: 50 PATHOLOGY: other (65 cm small bowel segment) COMPLICATIONS: None Patient was transported to: PACU Patient's condition: stable Indications: Intra-abdominal abscess, perforated small bowel Findings: Intra-abdominal abscess, associated perforated small bowel, intra-abdominal adhesions Procedure Description: The patient was transported to the operating room, timeout performed confirming name, date of , medical record number, all staff present agreed upon proposed procedure laparoscopic lysis of adhesions, small bowel resection, all other indicated procedures. The patient was transferred to the operating room table in supine position, general endotracheal anesthesia was induced without complications. Arms were tucked bilaterally parallel with the patient, the abdomen was prepped and draped in the usual sterile fashion with a ChloraPrep solution, 3 minutes were allowed to dry. We confirmed administration of IV antibiotics within 1 hour of incision. Optical access was used for entry into the abdominal compartment, creating a 5 mm incision with a 15 blade scalpel incising the skin. Electrocautery was used to divide to the dermal tissue, and maintain hemostasis. 5 mm optical trocar was advanced in the right upper quadrant, lateral to the midclavicular line, under direct laparoscopic visualization identifying the layers of the abdominal wall and entering into the peritoneal compartment. Once within the peritoneum pneumoperitoneum was established with carbon dioxide and a pressure of 15 mmHg. Once the abdomen was distended, 2 additional ports were placed in the right lateral and right lower abdomen under direct visualization with a similar technique. In the omentum was grasped and retracted cephalad, revealing a large phlegmonous mass, associated with the perforated small bowel, a full and prominent central mesenteric mass, with additional loops of small bowel adherent to the mass. I began to gently and bluntly dissected the healthy small bowel away from the mass, unroofing and abscess cavity, purulent discharge was noted immediately coming from the abscess cavity. I began to aspirate the purulent discharge as it poured from the abscess cavity. Gentle and blunt retraction, countertraction, and manipulation of the small bowel and large bowel was performed with the laparoscopic instruments. I was able to free the surrounding loops of bowel from the central mesenteric abscess, isolating the segment of small bowel which perforated into the mesentery. There were numerous large jejunal diverticula noted, and the likely source of the abscess in the mesenteric abscess was from a perforated diverticulum associated with the mass. The adhesions were taken down, allowing for mobilization of the central mesenteric mass and the associated segment of small bowel. At this time the decision to convert to an open procedure for performance of a small bowel resection with anastomosis was made. Laparoscopic mobilization provided advantage as I was able to inspect the diseased segment of the bowel, as well as the adjacent proximal and distal normal healthy bowel. This allowed me to plan for a small incision to extracorporealized the segment of small bowel. At this time a bilateral transversus abdominis plane block was performed injecting a large volume of dilute Exparel solution mixed with bupivacaine, and injectable normal saline for a total volume of 150 cc. This was injected into the bilateral transversus abdominis plane, creating large wheals of local an esthetic to provide long-acting local anesthetic, reducing the acuity of severe postoperative pain, and reducing the need for narcotics. After the transversus abdominis plane block was performed I proceeded to open the upper abdomen. A marking pen was used to create a 9 cm supraumbilical incision in the linea alba, a 15 blade scalpel was used to incise the skin, Bovie cautery was used to divide the dermal tissue and the subcutaneous tissue down to the linea alba and the midline fascia. This was incised and I was able to place my finger into the peritoneal compartment using my finger as a guard to extend the fascial opening cephalad and caudally. The incision was large enough to allow for visualization of the abdominal compartment contents, I was able to grasp the diseased segment of bowel with a [place], eviscerating it for resection. 2 blue towels were placed around the wound edges. The proximal and distal portions of the small bowel were again examined to ensure there is no previously undetected serosal injuries, or perforations from diverticula. Proximally and distally a point was chosen to transect the bowel, a and removing the diverticula with resection specimen. The mesentery was divided using the LigaSure harmonic. The small bowel specimen was passed off the table, it was estimated to be 65 cm in length. The central mesentery and the abscess cavity was debrided, allowing for additional removal of purulent discharge, and infectious burden. Hemostasis from the edges of the mesentery was obtained using the LigaSure harmonic, and interrupted [id number] silk stitches. Next a fzax-er-herc functional end-to-end anastomosis was created using a 80 mm blue MICKEY stapler, to create the anastomosis. The mucosa of the anastomosis was examined and there was no evidence of bleeding, the anastomosis and the staple line was hemostatic. The common enterotomy was aligned using Allis clamps, and additional 80 mm blue MICKEY stapler cartridge was used to fire and close the common enterotomy. Antiattention sutures were placed at the proximal anastomosis. The staple line was oversewn using a 2-0 running permanent braided suture. Hemostasis was good. Next the mesenteric defect was closed with multiple 2-0 permanent nonabsorbable braided sutures to reduce the risk of a internal hernia. The abscess cavity in the mesentery was again examined for hemostasis, and then irrigated with warm saline. The small bowel anastomosis and the mesentery was returned to the abdominal compartment. A pulmonary count was performed at this time confirming all needles, sponges, and instruments were accounted for. All counts were correct. I then proceeded to close the fascia using #1 looped long-acting monofilament absorbable suture starting at the bottom and the top of the incision and the tails were tied in the middle. The wound was irrigated. The abdominal compartment was reinsufflated, I examined the small bowel and the mesentery, I irrigated the abdominal compartment with 2 L of warm normal saline. Hemostasis was again confirmed. Next a 15 Frisian Thom drain was placed through the left anterior abdominal wall into the abdominal compartment and positioned near the anastomosis, and the transected edges of the mesentery to reduce the risk of postoperative abscess formation in the central mesentery. The distal aspect of the drain was positioned near the pelvis. The drain was secured in place with a 2-0 nonabsorbable monofilament suture. A final count was performed from the all needles, sponges, and instruments were accounted for. All counts were correct. The wound externally was irrigated again, then approximated interrupted fashion leaving space for wick gauze in the midline, and the laparoscopic port sites were also approximated with 5 mm titanium steel skin britta. Half-inch iodoform wick gauze was interposed between the britta. Dressings were applied to the wounds with 4 x 4 gauze sponges, and Medipore tape.
--- NOTE | 2023-08-27 18:15 | W.ANESPOSTOP ---
Postoperative Evaluation Date, Time and Location Date Performed: 08/27/23 Time Performed: 18:15 Patient Location: PACU Vital Signs Most Recent Imported Vital Signs: Most Recent Vital Signs Temp Pulse Resp BP Pulse Ox 36.9 C 62 18 147/83 H 96 08/27/23 18:05 08/27/23 18:05 08/27/23 18:05 08/27/23 18:05 08/27/23 18:05 Pain Score Most Recent Pain Score: Most Recent Pain Score Pain Level 4 08/27/23 18:05 Assessment Mental Status: Awake (Alert & Oriented to Patient Baseline) Airway and Respiratory Function: Patent airway with normal (patient baseline) respiratory exam Cardiovascular Function: Hemodynamically Stable Hydration Status: Adequately Hydrated Nausea & Vomiting: No Nausea or Vomiting Pain: Pain is tolerable per patient Peripheral Nerve Block: Patient did not receive a nerve block
[2023-08-27] MEDS: DEXTROSE 5%-0.45% SALINE 1,000 ML 75 ML IV (19:01)
[2023-08-27] MEDS: Docusate Sodium 100 MG CAP PO (19:53)
[2023-08-27] MEDS: Acetaminophen 325 MG TAB 975 MG PO (19:53)
[2023-08-27] MEDS: Cyclobenzaprine 10 MG TAB PO (19:53)
[2023-08-27] MEDS: Gabapentin 100 MG CAP PO (19:53)
[2023-08-27] MEDS: PIPERACILLIN/TAZO 3.375 GM in Normal Saline 50 ML IVPB (23:48)
[2023-08-27] MEDS: oxyCODONE 5 MG TAB PO (23:48)
[2023-08-28] VITALS (8 sets, daily range): BP systolic 107–128; BP diastolic 66–81; PULSE 51–74; RESP 16–20; TEMP 35.5–37; O2SAT 96–98
[2023-08-28] MEDS: PIPERACILLIN/TAZO 3.375 GM in Normal Saline 50 ML IVPB ×4 (04:49→21:38)
[2023-08-28 06:51] LABS: Abs Immature Grans 0.07 10^3/uL (0.0-0.06); Absolute Basophil Count 0.03 10^3/uL (0.0-0.2); Absolute Lymphocyte Count 0.56 10^3/uL (1.2-3.4); Basophils % 0.2; HCT 39.9 % (40.0-50.0); HGB 13.6 g/dL (13.5-17.5); Immature Grans % 0.5; Lymphocytes % 4.4; MCH 33.7 pg (27.0-33.0); MCHC 34.1 % (32.0-36.0); MCV 99 fL (80-95); MPV 8.9 fL (8.0-11.0); Monocytes % 6.4; Neutrophils % 88.5; Platelet Count 323 10^3/uL (130-400); RBC 4.04 10^6/uL (4.36-5.78); RDW 12.4 % (11.8-14.1); RDW-SD 45.8 fL; WBC 12.73 10^3/uL (4.4-10.8)
[2023-08-28 06:55] LABS: Absolute Monocyte Count 0.81 10^3/uL (0.1-0.8); Absolute Neutrophil Count 11.27 10^3/uL (1.2-6.7)
[2023-08-28 07:07] LABS: ALT 56 U/L (16-63); AST 26 U/L (15-37); Albumin 2.3 g/dL (3.4-5.0); Alkaline Phosphatase 156 U/L (46-116); Anion Gap 11.7 mmol/L (3-11); BUN 9 mg/dL (7-18); Bilirubin, Total 0.9 mg/dL (0.2-1.0); CO2 23.3 mmol/L (21.0-32.0); Calcium 8.4 mg/dL (8.5-10.1); Chloride 104 mmol/L (98-107); Estimated GFR 83.01 (mL/min/1.73m2); Glucose 162 mg/dL (74-106); Potassium 4.3 mmol/L (3.5-5.1); Sodium 139 mmol/L (136-145); Total Protein 6.5 g/dL (6.4-8.2)
--- NOTE | 2023-08-28 08:33 | PT.INIE ---
PT Notes Visit Reasons: fatigue/abd pain Physical Therapy Inpatient Initial Evaluation Date: 08/28/2023 Referring Doctor: Rashi Cerda MD PT Orders: PT CONSULT: Limited ability. Postop evaluation, abdominal surgery Precautions: Fall. Standard. Activity as tolerated. Patient Profile/Admitting Diagnosis: Jann is a 67-year-old male who presented to the ED on 08/27/2023 due to worsening fatigue and abdominal pain. Patient is admitted with diagnosis of diverticulitis, perforated small bowel, small bowel diverticulosis, peritonitis, hypertension, and hyperlipidemia. He is status post laparoscopic lysis of adhesion, abscess drainage, conversion to open small bowel resection with otbs-su-bdco anastomosis on postoperative day 1. 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 Has a 250 [address] walkway to the entrance of his house from where he gayle. Equipment Owned/DME: None Subjective: Motivated to get OOB. Agreeable to using a walker for today's walk. reported 3-4/10 pain in surgical incision. Objective: General Observation: Surgical drain inplace. Mahmood catheter in place. IV access through left UE. Mental Status: Alert and oriented as to person, place, time, and purpose. Able to pay attention, focus, and respond appropriately. Pain: As above Vital Signs: Closely monitored by nursing staff ROM: Right Upper Extremity: Shoulder Flexion WFL. Shoulder abduction WFL. Elbow flexion WFL. Wrist flexion WFL. Functional opening and closing of hand WFL. Left Upper Extremity: Shoulder Flexion WFL. Shoulder abduction WFL. Elbow flexion WFL. Wrist flexion WFL. Functional opening and closing of hand WFL. Right Lower Extremity: Hip flexion WFL. Hip abduction WFL. Knee flexion WFL. Ankle dorsiflexion WFL. Ankle plantarflexion WFL. Left Lower Extremity: Hip flexion WFL. Hip abduction WFL. Knee flexion WFL. Ankle dorsiflexion WFL. Ankle plantarflexion WFL. Strength: Right Upper Extremity: Shoulder flexors 4-/5. Shoulder abductors 4-/5. Elbow flexors 5/5. Elbow extensors 5/5. Sleep Technician strong. Left Upper Extremity: Shoulder flexors 4-/5. Shoulder abductors 4-/5. Elbow flexors 5/5. Elbow extensors 5/5. Sleep Technician strong. Right Lower Extremity: Hip flexors 4-/5. Hip abductors 4-/5. Knee flexors 4/5. Knee extensors 4/5. Ankle dorsiflexors 5/5. Ankle plantarflexors 5/5. Left Lower Extremity: Hip flexors 4-/5. Hip abductors 4-/5. Knee flexors 4/5. Knee extensors 4/5. Ankle dorsiflexors 5/5. Ankle plantarflexors 5/5. Bed Mobility/Transfers: Provided cues to use B UE to minimize pain report in surgical incision and to safely manage AD Rolling supervision Supine to sit supervision Sit to stand stand by assist with FWW Stand to sit stand by assist with FWW Bed to reclining chair stand by assist with FWW Reclining chair to bed stand by assist with FWW Gait: 350 feet with FWW with contact guard assist and wheelchair follow. Provided cues for management of walker as well as for more erect posture to allow better weight distribution and minimize pain on surgical incision. Balance: Static Sitting: Normal Dynamic Sitting: Normal Static Standing: Fair Dynamic Standing: Fair Special Tests: Mobility Limitations Standardized Measure [facility]-PAC 6 clicks Basic Mobility Inpatient Short Form: Raw Score: 22 CMS Score: 21% deficit 4-Stage balance Test: Feet together 10 seconds Semi-tandem 10 seconds Full tandem <10 seonds One-legged stance <10 seconds Informed Consent/Education: Patient was instructed in purpose of PT consult and plan of care. Agreeable to proceed with established PT POC to achieve personal goals. ASSESSMENT: Provided safety strategies to ensure improved ability to perform bed mobility, transfers, and ambulation to minimize pain and allow for increased independence. Patient is post-op day 1 and has not been out of bed since arrival from PACU yesterday to the med surg unit. Used FWW and wheelchair follow to ensure safety for this first time ambulation with PT. Patient will be alone at home and may benefit from PT services to continue to progress mobility level. No loss of balance, no shortness of breath and no report of chest pain nor lightheadedness were received. Patient presents with clinical signs and symptoms consistent with current/admitting diagnoses that have resulted to mobility limitations, gait instability, generalized weakness, and overall ADL decline as demonstrated by the following impairment level findings: 1. Decreased strength to B hip flexors 2. Impaired standing balance 3. Impaired activity tolerance Impairments are contributing to the following functional limitations: 1. Decline in bed mobility skills 2. Decline in transfer skills 3. Difficulty with ambulation without assistive device and physical assistance 4. Increased completion time for mobility ADL performance 5. Increased risk for falls 6. Difficulty with managing steps alone safely Patient is assessed as a 19315 moderate complexity based on the following: History: 67-year-old male with past medical history as indicated above Examination: Demonstrable impairment in strength, balance, and mobility level with underlying impairments and functional limitations as exhibited above as well as deficit score of 21% utilizing the [facility] Mobility Inpatient Short Form Presentation: Evolving Decision Makin moderate complexity Goals: Goals X1 week 1. Supine-Sit independent 2. Sit-Supine independent 3. Sit-Stand independent 4. Stand-Sit independent with no AD 5. Bed-Chair independent with no AD 6. Chair-Bed independent with no AD 7. Independent gait on level surface with use of no AD for at least 350 feet without report of pain nor dyspnea 8. Independent stair negotiation while holding onto B rails for at least 6 steps without report of pain nor dyspnea 9. Independent with home exercise program 10. Good static and dynamic standing balance/tolerance Plan of Care/Treatment Plan: 1-2x/day, 7 days/week x 1 week. Plan of care has been reviewed with the PAD MAKING MACHINE OPERATOR providing the service under Physical Therapy direction. Initiate Physical Therapy intervention for pain management as needed, strengthening, bed mobility, transfers, gait, stairs, balance training, and use of assistive device. DISCHARGE RECOMMENDATIONS: [] Home with no services [] [X] Home with services. Patient will benefit from home health PT services in order to progress mobility level using least restrictive assistive ambulatory device, assess home safety, identify additional equipment needs, and establish a functional maintenance program that will increase ability of patient to remain at home. [] Home with outpatient PT [] [] SNF for continued rehabilitation [] [] [facility] [] [] SNF versus LTC based on ability to participate and progress [] TREATMENT CODE/TIME: 66492 x 20 minutes for 1 unit, 76606 x 15 minutes for 1 unit (8:33-9:08). Thank you for the opportunity to participate in the care of this patient. Leonela Ji PT, DPT, CLT [facility] [place], [place]
[2023-08-28] MEDS: Cyclobenzaprine 10 MG TAB PO ×3 (08:34→21:37)
[2023-08-28] MEDS: Acetaminophen 325 MG TAB 975 MG PO ×3 (08:34→21:38)
[2023-08-28] MEDS: Docusate Sodium 100 MG CAP PO ×2 (08:34→21:38)
[2023-08-28] MEDS: Gabapentin 100 MG CAP PO (08:34)
[2023-08-28] MEDS: Enoxaparin 40 MG/0.4 ML SYR SC (08:34)
[2023-08-28] MEDS: Normal Saline Flush 10 ML SYR IVP ×4 (08:36→21:39)
[2023-08-28] MEDS: DEXTROSE 5%-0.45% SALINE 1,000 ML 75 ML IV ×2 (08:42→21:39)
--- NOTE | 2023-08-28 09:09 | PGE_ITS ---
Date of Service Date of service: 08/28/23 Time of Service: 09:10 Exam Narrative Exam Narrative: 67-year-old male who is status post laparoscopic lysis of adhesions, mobilization of small bowel, and small bowel resection due to perforated jejunal diverticulitis with central mesenteric abscess Doing well today, no nausea, no vomiting. Postoperative pain is moderately well-controlled, subjectively rated 4/10 Encouraged ambulation today Plan: Acute postoperative pain -Continue scheduled nonnarcotic analgesia -Oxycodone available for breakthrough pain Tentative plan for Mahmood catheter removal today pending adequate urine output Intra-abdominal abscess: -Status post abscess washout -Continue IV antibiotics for treatment of known intra-abdominal infection Postoperative ileus: -Patient is not having any flatus -Maintain on a clear liquid diet until evidence of return of bowel function -Begin bowel regimen twice daily docusate, and nightly MiraLAX Objective Physical exam: gen: No acute distress, pleasant, awake, oriented Neuro: No focal neurologic deficits Psych: Normal mood, makes good eye contact HEENT: Atraumatic, normocephalic Neck: Trachea midline Heart: RRR, no m/r/g Lungs: ctab Chest: Bilateral excursion with respiration, does not localize chest pain Abdomen: Surgical bandage clean dry and intact, KAMILAH drain with serosanguineous output, left upper abdomen MSK: MAEx4, no traumatic injuries Integument: No lacerations, no abrasions, normal appearing skin Last Vital Signs Temp 98.2 F 08/28/23 07:14 Pulse 54 L 08/28/23 07:14 Resp 16 08/28/23 07:14 BP 128/80 08/28/23 07:14 Pulse Ox 97 08/28/23 07:14 Laboratory Results - last 24 hr 08/27/23 08/27/23 08/27/23 11:32 11:41 13:00 WBC 11.34 H RBC 4.53 Hgb 15.0 Hct 43.6 MCV 96 H MCH 33.1 H MCHC 34.4 RDW 12.4 Plt Count 321 MPV 8.7 Immature Gran % 0.5 Neutrophils % 75.7 Lymphocytes % 13.2 Monocytes % 8.6 Eosinophils % 1.6 Basophils % 0.4 Nucleated RBC % 0.0 Absolute Neutrophils 8.58 H Absolute Lymphocytes 1.50 Absolute Monocytes 0.98 H Absolute Eosinophils 0.18 Absolute Basophils 0.05 VBG Lactate Sodium 137 Potassium 4.2 Chloride 102 Carbon Dioxide 20.5 L Anion Gap 14.5 H BUN 14 Creatinine 1.1 Est GFR (CKD-EPI 2020) 74.04 Glucose 106 Calcium 9.1 Magnesium 2.1 Total Bilirubin 1.0 AST 59 H ALT 81 H Alkaline Phosphatase 204 H Creatine Kinase 78 Troponin I < 50 Total Protein 7.5 Albumin 2.8 L Lipase 23 TSH 2.04 Urine Color Yellow Urine Clarity Clear Urine pH 5.5 Ur Specific [place] 1.020 Urine Protein Negative Urine Ketones Negative Urine Blood Negative Urine Nitrite Negative Urine Bilirubin Negative Urine Urobilinogen 1.0 H Ur Leukocyte Esterase Negative Urine Glucose Negative 08/27/23 08/28/23 15:16 06:20 WBC 12.73 H RBC 4.04 L Hgb 13.6 Hct 39.9 L MCV 99 H MCH 33.7 H MCHC 34.1 RDW 12.4 Plt Count 323 MPV 8.9 Immature Gran % 0.5 Neutrophils % 88.5 Lymphocytes % 4.4 Monocytes % 6.4 Eosinophils % 0.0 Basophils % 0.2 Nucleated RBC % 0.0 Absolute Neutrophils 11.27 H Absolute Lymphocytes 0.56 L Absolute Monocytes 0.81 H Absolute Eosinophils 0.00 Absolute Basophils 0.03 VBG Lactate 1.5 H Sodium 139 Potassium 4.3 Chloride 104 Carbon Dioxide 23.3 Anion Gap 11.7 H BUN 9 Creatinine 1.0 Est GFR (CKD-EPI 2020) 83.01 Glucose 162 H Calcium 8.4 L Magnesium Total Bilirubin 0.9 AST 26 ALT 56 Alkaline Phosphatase 156 H Creatine Kinase Troponin I Total Protein 6.5 Albumin 2.3 L Lipase TSH Urine Color Urine Clarity Urine pH Ur Specific [place] Urine Protein Urine Ketones Urine Blood Urine Nitrite Urine Bilirubin Urine Urobilinogen Ur Leukocyte Esterase Urine Glucose Time Spent with Patient Time Spent with Patient: <25 minutes ([id number]) Time was spent: other ([id number] encounter)
--- NOTE | 2023-08-28 09:41 | W.NUTCONSULT ---
Date of service: 08/28/23 Time of Service: 09:42 Nutritional Consult ASSESSMENT: 67yo male presented to ER with acute peritonitis with findings of diverticulitis of the jejunum with perforation - pt was admitted for abdominal surgery and is no s/p resection of the small intestine. Consult request reports 10 days of malnutrition with symptoms preventing adequate po intake. PMH significant for HLD, HTN. Current BMI of 31.4 congruent with stage I obesity. Wt history shows 6 pound wt loss over the last 6 months (2.6% of bodyweight). Lytes are normal on admission with low hct/hgb and albumin. Elevated glucose consistent with inflammation and post surgery disposition. PT currently ordered for 2gm sodium clear liquid diet with no advancement until bowel sounds are present. AdjBW: 79.2kg Estimated energy needs: 2550kcals (25kcal per kg), 95g protein (1.2g/kg AdjBW), 2550mL fluid (1mL per estimated kcal) unable to meet with pt today - no nutrition focused physical exam performed. Pt presented with reportedly meeting <75% of energy needs for >7days. He has lost >2% of his bodyweight, however it is difficult to determine that this loss was within the last week. Pt does not currently seem to meet a minimum of 2 criteria for malnutrition diagnosis at this time due to acute illness. NUTRITIONAL DIAGNOSIS: Inadequate oral food intake related to acute diverticulitis as evidenced by pt interview on admission, INTERVENTION: Would recommend daily weights and advancing diet as soon as it becomes safe. Will meet with patient tomorrow to perform nutrition focused physical exam to assess if it results in meeting criteria for malnutrition Will provide Boost Breeze ONS on dinner trays but want to avoid excessive sugar intake with clear liquids and create more chance for hyperosmolar glycemic state. Recommend Active liquid protein concentrate ordered TID for no carbs but 45 g protein daily. MONITORING AND EVALUATION: will monitor labs, intake, diet toleration/advancement and any need for more aggressive nutrition intervention Time Spent in Nutritional Counseling and Treatment: 0
[2023-08-28] MEDS: Ketorolac 15 MG/ML VIAL IVP ×3 (10:15→22:43)
--- NOTE | 2023-08-28 11:41 | PDOC.CMIN ---
Date of service: 08/28/23 Time of Service: 11:45 Care Management Initial Assmt Initial Assessment REASON FOR HOSPITALIZATION:: Peritonitis, small bowel perforation PREVIOUS FUNCTIONAL STATUS/SOCIAL/FAMILY SUPPORTS:: Jann lives in [place], alone, off grid. He stated that he also owns property in [place] near [facility], and his mailing address is in [place]. Jann stated that he was raised on the [facility], and moved to the [facility] to be closer to his son and grand daughter who live in [place]. He has another son who lives on the [facility] still. Both of his sons enjoy skiing and mountain biking, as he also once did, but he reported that he is retired from those things now. 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 He is very independent and self sufficient at his off grid home in [place]. He stated that although his son is close by, he is not available to help support Jann. CURRENT FUNCTIONAL STATUS:: Jann was sitting up in his chair when CM met with him. He stated that he is doing well post surgically. He walked with PT earlier, who are not recommending any services upon discharge. Jann stated that per MD, he will likely be inpatient over the weekend. He was admitted as an observation patient, although after reviewing his case by the UR RN, it was found that he met inpatient criteria, and the provider was informed of this. Jann stated that because he lives off grid, he is concerned about returning home before he is able to resume his responsibilities at home, although he is willing to modify things as needed while he heals. He does not expect to need any services upon discharge. CM will continue to follow. ADVANCE DIRECTIVES:: Not on file at [facility]. Has patient been provided with info about the portal/API?: Yes Did the patient sign up for the portal?: No CODE STATUS:: Full Code INSURANCE COVERAGE / FINANCIAL ISSUES:: MVP MCR replacement CURRENT HOME/COMMUNITY SERVICES/EQUIPMENT:: None PRIMARY CARE PHYSICIAN:: Jean Carlos David POTENTIAL DISCHARGE NEEDS:: Evaluations for further needs, follow up appointments. PATIENT/FAMILY EDUCATION NEEDS:: Review discharge instructions and limitations, discussion of self care needs including ask me three. ANTICIPATED BARRIERS TO DISCHARGE:: None identified. TRANSPORTATION:: Via private vehicle; his own car is in the parking lot. PLAN:: Anticipate Jann will return home once medically cleared. He will drive himself home via private vehicle. He will follow up with his PCP and discharge plan of care. CM will continue to follow. PFSH All Active Problems (Updated 08/27/23 @ 15:30 by TEO Amos) Diverticulitis, jejunum (Acute) Small bowel perforation (Acute) Peritonitis (acute) generalized (Acute) Skin lesion (Acute) Headache (Acute) Hyperlipidemia (Acute) Joint pain (Acute) Marijuana smoker (Acute) Hypertension (Chronic) Actinic keratosis (Acute) Tubular adenoma (Acute) Medical History (Updated 08/27/23 @ 15:30 by TEO Amos) Persistent fatigue after COVID-19 COVID-19 Bradycardia Surgical History (Updated 02/14/22 @ 09:13 by Jean Carlos David NP) 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) Hx of hernia repair History of colonoscopy with polypectomy (~07/12/21) Family History Mother Hypertension Sister Hypertension Stroke Brother , 54 Hypertension Brother Hypertension Brother Hypertension Social History (Updated 03/23/23 @ 08:11 by Lesli Davenport) Smoking/Tobacco Use Status: Never Second Hand Exposure: Yes Smoking risk assessment performed?: Yes Alcohol Intake: former Drug use: Daily Substance use type: marijuana Details: smokes daily-weekly marijuana depending on his activity Adopted: No Caregiver/Support person: No Foster care: No Household members: none Housing: house Number of Children: 2 number of grandchildren: 1 Communication Needs: None Do you need help understanding health information?: Never Pets and animals: No Sexually active: No Do you think of yourself as: straight/heterosexual Current gender identity: male What is your relationship status?: How often do you talk on the phone with friends or family?: three or more times per week How often do you get together with friends or relatives?: once per week Do you belong to any clubs or organized social groups?: no Panel score (0-1 are the most socially isolated patients): 1 Stephie/Judaism: No preference Seatbelt use: always Helmet use: Yes Helmet use: always Drive intox or ride w/intox 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 Working smoke detector in home: Yes Carbon monox detector in home: Yes Firearms in home: Yes Do you feel safe at home: Yes Do you feel safe in your relationship?: Yes SDOH(Care Management) Screening Will the Patient Participate in the Screening?: Yes Do you worry about having a steady place to live?: no In the past 12 months, have you had to go without electric, gas, oil or water in your home?: no Have you or anyone in your house had to go without enough food to eat?: no Has lack of transportation kept you from medical appointments or from doing things needed for daily living?: no Has anyone in your support network made you feel unsafe for any reason?: no
[2023-08-28 12:22] LABS: Lyme Ab w Rflx to Lyme Confirm Negative (Negative)
[2023-08-28] MEDS: Gabapentin 100 MG CAP 200 MG PO ×2 (14:06→21:37)
--- NOTE | 2023-08-28 14:06 | PT.INTREAT ---
PT Notes Visit Reasons: fatigue/abd pain Physical Therapy Inpatient Treatment Note Date: 08/28/2023 Precautions: Fall. Standard. Activity as tolerated. Subjective: [place] better walking this afternoon than he did this morning, pain lesser at 2-3/10 at surgical incision. Objective: General Observation: Surgical drain in place. Mahmood catheter in place. IV access through left UE. Mental Status: Alert and oriented as to person, place, time, and purpose. Able to pay attention, focus, and respond appropriately. Pain: As above Vital Signs: Closely monitored by nursing staff Transfers: Provided cues to use B UE to minimize pain report in surgical incision and to safely manage AD Sit to stand stand by assist with FWW Stand to sit stand by assist with FWW Gait: 550 feet with FWW with stand by assist, no wheelchair follow needed. Provided cues for management of walker as well as for more erect posture to allow better weight distribution and minimize pain on surgical incision. Balance: Static Sitting: Normal Dynamic Sitting: Normal Static Standing: Fair Dynamic Standing: Fair THERA EX: Instucted on safe and correct performance of standing level exercises to incrase B LE strength as well as static/dynamic standing with B UE support: Stepping ex onto 6-inch steps x 10 reps Hip extension x 10 ASSESSMENT: Activity tolerance improving. Pain level decreasing. Provided safety strategies to ensure improved ability to perform transfers and ambulation to minimize pain and allow for increased independence. Patient is post-op day 1 and has not been out of bed since arrival from PACU yesterday to the med surg unit. Used FWW and wheelchair follow to ensure safety for this first time ambulation with PT. Patient will be alone at home and may benefit from PT services to continue to progress mobility level. No loss of balance, no shortness of breath and no report of chest pain nor lightheadedness were received. Plan of Care/Treatment Plan: 1-2x/day, 7 days/week x 1 week. Plan of care has been reviewed with the PROJECT ASSOCIATE providing the service under Physical Therapy direction. Initiate Physical Therapy intervention for pain management as needed, strengthening, bed mobility, transfers, gait, stairs, balance training, and use of assistive device. DISCHARGE RECOMMENDATIONS: [] Home with no services [] [X] Home with services. Patient will benefit from home health PT services in order to progress mobility level using least restrictive assistive ambulatory device, assess home safety, identify additional equipment needs, and establish a functional maintenance program that will increase ability of patient to remain at home. [] Home with outpatient PT [] [] SNF for continued rehabilitation [] [] Care Home Care [] [] SNF versus LTC based on ability to participate and progress [] TREATMENT CODE/TIME: 40163 x 25 minutes for 2 units, 98368 x 13 x 1 unit (13:21-14:00).
--- NOTE | 2023-08-28 17:36 | CHAPLAIN ---
Jann was up in a chair watching Reza Coy on his phone when I stopped in. He was very pleasant and told me he's feeling hungry for the first time in a while and knows that's a good sign. I explained my role and offered support. 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 He's in touch the the people he wants to be in touch with.
[2023-08-29] MEDS: PIPERACILLIN/TAZO 3.375 GM in Normal Saline 50 ML IVPB ×4 (03:41→21:47)
[2023-08-29] MEDS: Ketorolac 15 MG/ML VIAL IVP ×3 (05:27→16:00)
[2023-08-29 06:53] LABS: Abs Immature Grans 0.07 10^3/uL (0.0-0.06); Absolute Basophil Count 0.03 10^3/uL (0.0-0.2); Absolute Eosinophil Count 0.15 10^3/uL (0.0-0.7); Absolute Lymphocyte Count 1.37 10^3/uL (1.2-3.4); Absolute Monocyte Count 0.72 10^3/uL (0.1-0.8); Absolute Neutrophil Count 7.79 10^3/uL (1.2-6.7); Basophils % 0.3; Eosinophils % 1.5; HCT 35.4 % (40.0-50.0); Immature Grans % 0.7; Lymphocytes % 13.5; MCH 33.1 pg (27.0-33.0); MCHC 33.9 % (32.0-36.0); MCV 98 fL (80-95); MPV 8.9 fL (8.0-11.0); Monocytes % 7.1; Neutrophils % 76.9; Platelet Count 310 10^3/uL (130-400); RBC 3.62 10^6/uL (4.36-5.78); RDW 12.6 % (11.8-14.1); RDW-SD 45.9 fL; WBC 10.13 10^3/uL (4.4-10.8)
[2023-08-29 06:56] VITALS: BP 108/70; PULSE 51; RESP 16; TEMP 35.9; O2SAT 94
[2023-08-29 07:07] LABS: Anion Gap 8.6 mmol/L (3-11); BUN 10 mg/dL (7-18); CO2 24.4 mmol/L (21.0-32.0); CREATININE 1.1 mg/dL (0.70-1.30); Calcium 8.1 mg/dL (8.5-10.1); Chloride 106 mmol/L (98-107); Estimated GFR 74.04 (mL/min/1.73m2); Glucose 100 mg/dL (74-106); Potassium 3.6 mmol/L (3.5-5.1); Sodium 139 mmol/L (136-145)
[2023-08-29] MEDS: Acetaminophen 325 MG TAB 975 MG PO ×3 (08:22→21:47)
[2023-08-29] MEDS: Docusate Sodium 100 MG CAP PO ×2 (08:22→21:47)
[2023-08-29] MEDS: Normal Saline Flush 10 ML SYR IVP ×2 (08:23→21:47)
[2023-08-29] MEDS: Cyclobenzaprine 10 MG TAB PO ×3 (08:23→21:47)
[2023-08-29] MEDS: Gabapentin 100 MG CAP 200 MG PO ×3 (08:23→21:47)
[2023-08-29] MEDS: Enoxaparin 40 MG/0.4 ML SYR SC (08:24)
--- NOTE | 2023-08-29 09:52 | W.PM.PROGNOT ---
Date of Service Date of service: 08/29/23 Time of Service: 09:52 Assessment and Plan Assessment and plan (1) Small bowel perforation: Status: Acute Assessment and plan: s/p small bowel resection on 08/27/2023 doign well today no nausea, no vomiting no belching, no GERD, reflux adv diet to Full liq diet today drain to remain in place daily wound care, exchange wick gauze dressings encourage ambulation (2) Acute postoperative pain: Status: Acute Assessment and plan: continue scheduled non-narcotic analgesia oxycodone for breakthrough Subjective Subjective Interval history since last seen: 67 yo m s/p diagnostic laparoscopy, lysis adhesions, converstion to laparotomy, and small bowel resection with anastomosis continue antibiotic therapy for intra-abdominal abscess and mesenteric abscess treatment keep KAMILAH drain in place repeat labs in AM correct electrolytes as indicated awaiting return of bowel function secondary to postop ileus acute pain control with multi-modal therapy, NSAIDS, narcotics, ice, heat pain is moderatley well controlled Exam Narrative Exam Narrative: GEN; nad chest: bilatera excursion w/ respiration abd: surger dressings in place, removed today replaced wick gauze in midline, KAMILAH drain serosang Objective Last Vital Signs Temp 96.6 F L 08/29/23 06:56 Pulse 51 L 08/29/23 06:56 Resp 16 08/29/23 06:56 BP 108/70 08/29/23 06:56 Pulse Ox 94 08/29/23 06:56 Laboratory Results - last 24 hr 08/27/23 08/29/23 08/29/23 13:00 06:33 06:40 WBC 10.13 RBC 3.62 L Hgb 12.0 L Hct 35.4 L MCV 98 H MCH 33.1 H MCHC 33.9 RDW 12.6 Plt Count 310 MPV 8.9 Immature Gran % 0.7 Neutrophils % 76.9 Lymphocytes % 13.5 Monocytes % 7.1 Eosinophils % 1.5 Basophils % 0.3 Nucleated RBC % 0.0 Absolute Neutrophils 7.79 H Absolute Lymphocytes 1.37 Absolute Monocytes 0.72 Absolute Eosinophils 0.15 Absolute Basophils 0.03 Sodium 139 Potassium 3.6 Chloride 106 Carbon Dioxide 24.4 Anion Gap 8.6 BUN 10 Creatinine 1.1 Est GFR (CKD-EPI 2020) 74.04 Glucose 100 Calcium 8.1 L Lyme Disease Antibody Negative Time Spent with Patient Time Spent with Patient: <25 minutes Time was spent: indepentently interpreting results
[2023-08-29] MEDS: DEXTROSE 5%-0.45% SALINE 1,000 ML 75 ML IV (10:11)
--- NOTE | 2023-08-29 10:58 | PT.INTREAT ---
PT Notes Visit Reasons: fatigue/abd pain Inpatient Physical Therapy Treatment Note [facility] Date: 08/29/23 PRECAUTIONS:Standard Therapeutic Activities (26279n[2]): Direct one-on-one instruction in dynamic activities to improve functional performance. ? BED MOBILITY/TRANSFERS? Rolling L/R: Supine-sit: SBA? Sit-supine: SBA ? Sit-stand: SBA? Stand-sit: SBA? GAIT? Assistive Device: FWW? Weight bearing: Full Assist: SBA ? Distance:? Approx 850ft? Therapeutic Exercises (83251i[]): Direct one-on-one instruction in therapeutic exercises to develop strength, endurance, range of motion and flexibility. ? Exercises ? Pt felt the walking was enough this am. ASSESSMENT:? Pt is very independent and willing to ambulate. PLAN: Cont as per PT POC. TREATMENT CODE/TIME: 10:30-10:55 (25) TAx2
[2023-08-29 15:41] VITALS: BP 99/58; PULSE 55; RESP 16; TEMP 36.5; O2SAT 95
[2023-08-29 15:59] LABS: Anaplasma phagocytophilum Negative (Negative); B. miyamotoi PCR Negative (Negative); Babesia divergens/MO-1 Negative (Negative); Babesia duncani Negative (Negative); Babesia microti Negative (Negative); Ehrlichia chaffeensis Negative (Negative); Ehrlichia ewingii/canis Negative (Negative); Ehrlichia muris eauclairensis Negative (Negative)
[2023-08-29] MEDS: Polyethylene Glycol 3350 17 GM PACKET PO (21:47)
[2023-08-29 23:09] VITALS: BP 101/65; PULSE 52; RESP 18; TEMP 36.7; O2SAT 95
[2023-08-30] MEDS: DEXTROSE 5%-0.45% SALINE 1,000 ML 75 ML IV ×2 (01:17→17:20)
[2023-08-30] MEDS: PIPERACILLIN/TAZO 3.375 GM in Normal Saline 50 ML IVPB ×4 (04:45→23:00)
[2023-08-30 06:46] LABS: Abs Immature Grans 0.04 10^3/uL (0.0-0.06); Absolute Basophil Count 0.05 10^3/uL (0.0-0.2); Absolute Eosinophil Count 0.22 10^3/uL (0.0-0.7); Absolute Lymphocyte Count 1.18 10^3/uL (1.2-3.4); Absolute Neutrophil Count 5.81 10^3/uL (1.2-6.7); Basophils % 0.6; Eosinophils % 2.8; HCT 38.9 % (40.0-50.0); HGB 12.8 g/dL (13.5-17.5); Immature Grans % 0.5; Lymphocytes % 15.1; MCH 33.3 pg (27.0-33.0); MCHC 32.9 % (32.0-36.0); MCV 101 fL (80-95); MPV 8.8 fL (8.0-11.0); Monocytes % 6.4; Neutrophils % 74.6; Platelet Count 335 10^3/uL (130-400); RBC 3.84 10^6/uL (4.36-5.78); RDW 12.9 % (11.8-14.1); RDW-SD 48.4 fL
[2023-08-30 07:00] LABS: Anion Gap 7.3 mmol/L (3-11); BUN 9 mg/dL (7-18); CO2 24.7 mmol/L (21.0-32.0); Calcium 8.3 mg/dL (8.5-10.1); Chloride 107 mmol/L (98-107); Estimated GFR 83.01 (mL/min/1.73m2); Glucose 97 mg/dL (74-106); Potassium 4.1 mmol/L (3.5-5.1); Sodium 139 mmol/L (136-145)
[2023-08-30 07:32] VITALS: BP 144/84; PULSE 61; RESP 18; TEMP 37.5; O2SAT 95
[2023-08-30] MEDS: Cyclobenzaprine 10 MG TAB PO ×3 (09:15→21:06)
[2023-08-30] MEDS: Gabapentin 100 MG CAP 200 MG PO ×3 (09:15→21:06)
[2023-08-30] MEDS: Enoxaparin 40 MG/0.4 ML SYR SC (09:15)
[2023-08-30] MEDS: Acetaminophen 325 MG TAB 975 MG PO ×3 (09:15→21:05)
[2023-08-30] MEDS: Docusate Sodium 100 MG CAP PO ×2 (09:15→21:06)
[2023-08-30] MEDS: Normal Saline Flush 10 ML SYR IVP ×2 (09:16→21:06)
--- NOTE | 2023-08-30 09:42 | PT.INNT ---
PT Notes Visit Reasons: Diverticulitis SI w/perforation Pt refused today. He reports he held in a sneeze and is not feeling well now.
--- NOTE | 2023-08-30 13:30 | W.PM.PROGNOT ---
Date of Service Date of service: 08/30/23 Time of Service: 13:30 Assessment and Plan Assessment and plan (1) Small bowel perforation: Status: Acute Assessment and plan: s/p small bowel resection on 08/27/2023 Doing well today no nausea, no vomiting no belching, no GERD, reflux Slightly increasing appetite Advance to a soft diet today drain to remain in place daily wound care, exchange wick gauze dressings encourage ambulation Awaiting return of bowel function, no evidence of flatus or stool at this time Patient may be cleared for discharge within 24-48 hours if labs remain normal, vital signs are stable, and once there is evidence of return of bowel function (2) Acute postoperative pain: Status: Acute Assessment and plan: continue scheduled non-narcotic analgesia oxycodone for breakthrough Subjective Subjective Interval history since last seen: Doing well today No nausea No vomiting No heartburn No reflux Slight increasing appetite Postoperative abdominal pain is appropriate, increase in pain with sneezing Ambulating to the commode No return of bowel function at this time Exam Narrative Exam Narrative: GEN; nad chest: bilatera excursion w/ respiration abd: surger dressings in place, removed today replaced wick gauze in midline, KAMILAH drain serosang Objective Last Vital Signs Temp 99.5 F 08/30/23 07:32 Pulse 61 08/30/23 07:32 Resp 18 08/30/23 07:32 BP 144/84 H 08/30/23 07:32 Pulse Ox 95 08/30/23 07:32 Laboratory Results - last 24 hr 08/30/23 06:36 WBC 7.80 RBC 3.84 L Hgb 12.8 L Hct 38.9 L MCV 101 H MCH 33.3 H MCHC 32.9 RDW 12.9 Plt Count 335 MPV 8.8 Immature Gran % 0.5 Neutrophils % 74.6 Lymphocytes % 15.1 Monocytes % 6.4 Eosinophils % 2.8 Basophils % 0.6 Nucleated RBC % 0.0 Absolute Neutrophils 5.81 Absolute Lymphocytes 1.18 L Absolute Monocytes 0.50 Absolute Eosinophils 0.22 Absolute Basophils 0.05 Sodium 139 Potassium 4.1 Chloride 107 Carbon Dioxide 24.7 Anion Gap 7.3 BUN 9 Creatinine 1.0 Est GFR (CKD-EPI 2020) 83.01 Glucose 97 Calcium 8.3 L Time Spent with Patient Time Spent with Patient: <25 minutes Time was spent: preparing to see the patient(eg.review tests), obtaining and/or reviewing separately otained hiistory, ordering medications,tests, procedures, indepentently interpreting results and counseling the patient
[2023-08-30 15:05] VITALS: BP 132/80; PULSE 55; RESP 17; TEMP 37; O2SAT 96
[2023-08-30] MEDS: Polyethylene Glycol 3350 17 GM PACKET PO (21:05)
[2023-08-30 23:35] VITALS: BP 137/78; PULSE 55; RESP 20; TEMP 36.7; O2SAT 93
[2023-08-31] MEDS: PIPERACILLIN/TAZO 3.375 GM in Normal Saline 50 ML IVPB (04:31)
[2023-08-31 06:48] LABS: Abs Immature Grans 0.03 10^3/uL (0.0-0.06); Absolute Basophil Count 0.05 10^3/uL (0.0-0.2); Absolute Eosinophil Count 0.34 10^3/uL (0.0-0.7); Absolute Lymphocyte Count 1.19 10^3/uL (1.2-3.4); Absolute Monocyte Count 0.49 10^3/uL (0.1-0.8); Absolute Neutrophil Count 5.85 10^3/uL (1.2-6.7); Basophils % 0.6; Eosinophils % 4.3; HCT 39.3 % (40.0-50.0); HGB 13.4 g/dL (13.5-17.5); Immature Grans % 0.4; MCH 33.3 pg (27.0-33.0); MCHC 34.1 % (32.0-36.0); MCV 98 fL (80-95); MPV 8.9 fL (8.0-11.0); Monocytes % 6.2; Neutrophils % 73.5; Platelet Count 428 10^3/uL (130-400); RBC 4.03 10^6/uL (4.36-5.78); RDW 12.6 % (11.8-14.1); RDW-SD 45.2 fL; WBC 7.95 10^3/uL (4.4-10.8)
[2023-08-31 06:58] LABS: Anion Gap 10.7 mmol/L (3-11); BUN 7 mg/dL (7-18); CO2 23.3 mmol/L (21.0-32.0); Calcium 8.6 mg/dL (8.5-10.1); Chloride 107 mmol/L (98-107); Estimated GFR 83.01 (mL/min/1.73m2); Glucose 102 mg/dL (74-106); Potassium 4.1 mmol/L (3.5-5.1); Sodium 141 mmol/L (136-145)
[2023-08-31 08:01] VITALS: BP 136/74; PULSE 59; RESP 16; TEMP 36.5; O2SAT 95
--- NOTE | 2023-08-31 08:55 | CMPROGNOTE_ITS ---
Date of service: 08/31/23 Time of Service: 08:55 Care Management Progress Note Progress Note Text Progress Note Text: S/O: Jann was sitting up in his chair when CM met with him. He stated that overall he is doing very well. He reported that his pain in very manageable, and he was able to have a bowel movement today, which the MD had been waiting for. CM spoke to the MD who stated that Lei will require daily dressing changes, and that Lei is not comfortable having HH go to his home, or doing the dressing changes himself. Nursing is agreeable to help teach him how to do the dressing changes. MD stated that he can set up a closer follow up to keep a close eye on his wound care. MURRAY spoke to Lei regarding this plan, and he reported that he is very concerned about doing his own dressing changes due to his home being off grid; he does not have running water, and he has a small space that is not sterile. He asked if it is possible for him to come into the surgical office daily for his wound care. MURRAY called the surgical office, and spoke to guanakito Cárdenas agreed that they would help support Lei with daily dressing changes (during the week). CM will continue to follow. A: Jann is a 67 year old male admitted to [facility] on 08/27/23 with diverticulitis SI w/ perforation. P: Anticipate Jann will return home once medically cleared. He will have new orders for HH RN for drain care and wound dressing changes. He will drive himself home via private vehicle. He will follow up with his PCP and discharge plan of care. CM will continue to follow. SDOH(Care Management) Screening Will the Patient Participate in the Screening?: Yes Do you worry about having a steady place to live?: no In the past 12 months, have you had to go without electric, gas, oil or water in your home?: no Have you or anyone in your house had to go without enough food to eat?: no Has lack of transportation kept you from medical appointments or from doing things needed for daily living?: no Has anyone in your support network made you feel unsafe for any reason?: no
[2023-08-31 08:58] LABS: Prealbumin 8 mg/dL (20-40)
[2023-08-31] MEDS: Enoxaparin 40 MG/0.4 ML SYR SC (09:27)
[2023-08-31] MEDS: Normal Saline Flush 10 ML SYR IVP (09:28)
[2023-08-31] MEDS: Docusate Sodium 100 MG CAP PO ×2 (09:28→20:59)
[2023-08-31] MEDS: Acetaminophen 325 MG TAB 975 MG PO ×3 (09:28→20:58)
[2023-08-31] MEDS: Losartan 50 MG TAB 100 MG PO (09:29)
[2023-08-31] MEDS: Gabapentin 100 MG CAP 200 MG PO ×2 (09:29→13:25)
[2023-08-31] MEDS: Cyclobenzaprine 10 MG TAB PO ×2 (09:30→13:25)
--- NOTE | 2023-08-31 09:44 | PGE_ITS ---
Date of Service Date of service: 08/31/23 Time of Service: 09:44 Assessment and Plan Assessment and plan (1) Small bowel perforation: Status: Acute Assessment and plan: s/p small bowel resection on 08/27/2023 Doing well today no nausea, no vomiting no belching, no GERD, reflux Slightly increasing appetite He was not hungry this morning, he did not eat drain to remain in place, cloudy fluid appearing fluid output Central britta removed with staple remover today Replaced wick gauzes with a 4 x 4 gauze sponge Patient tolerated well encourage ambulation Has had 2 small bowel movements this morning Possible discharge home in 24 hours Patient reports willingness to try and practice dressing change this afternoon Not able to discharge home today, as the patient is not able to perform his dressing changes, he reports that nursing/home health is not able to go to his home under any circumstances We do not have a wound care clinic in [facility] for him to follow-up with wound care. At this time tentative plan for follow-up with general surgery clinic this coming or Thursday for drain removal Will need follow-up visit early the week of 09/07/2023 for tentative removal of britta (2) Acute postoperative pain: Status: Acute Assessment and plan: continue scheduled non-narcotic analgesia oxycodone for breakthrough Subjective Subjective Interval history since last seen: Doing well today No nausea No vomiting No heartburn No reflux He has had 2 bowel movements today, feeling pretty well overall He is unable to have home health nursing at his home, he is uncomfortable with performing his dressing changes at this time Slight increasing appetite Postoperative abdominal pain is appropriate, increase in pain with sneezing Ambulating to the commode No return of bowel function at this time Exam Narrative Exam Narrative: GEN; nad, sitting upright in the chair today chest: bilateral excursion w/ respiration abd: Wick gauzes continue to have purulent discoloration and discharge from the midline since surgery, midline was partially approximated in interrupted manner with britta, britta removed and 4 x 4 wick gauze placed into the wound today, KAMILAH drain continues to be serosanguineous Objective Last Vital Signs Temp 97.7 F 08/31/23 08:01 Pulse 59 L 08/31/23 08:01 Resp 16 08/31/23 08:01 BP 136/74 08/31/23 08:01 Pulse Ox 95 08/31/23 08:01 Laboratory Results - last 24 hr 08/27/23 08/29/23 08/31/23 13:00 06:33 06:00 WBC 7.95 RBC 4.03 L Hgb 13.4 L Hct 39.3 L MCV 98 H MCH 33.3 H MCHC 34.1 RDW 12.6 Plt Count 428 H MPV 8.9 Immature Gran % 0.4 Neutrophils % 73.5 Lymphocytes % 15.0 Monocytes % 6.2 Eosinophils % 4.3 Basophils % 0.6 Nucleated RBC % 0.0 Absolute Neutrophils 5.85 Absolute Lymphocytes 1.19 L Absolute Monocytes 0.49 Absolute Eosinophils 0.34 Absolute Basophils 0.05 Sodium 141 Potassium 4.1 Chloride 107 Carbon Dioxide 23.3 Anion Gap 10.7 BUN 7 Creatinine 1.0 Est GFR (CKD-EPI 2020) 83.01 Glucose 102 Calcium 8.6 Prealbumin 8 L B. divergens/MO-1 PCR Negative Babesia duncani (PCR) Negative Babesia microti DNA PCR Negative E.chaffeensis DNA (PCR) Negative E.ewingii/canis DNA PCR Negative E.muris eauclairensis (PCR) Negative A. phagocytophilum (PCR) Negative Blood B. miyamotoi (PCR) Negative Time Spent with Patient Time Spent with Patient: <25 minutes Time was spent: preparing to see the patient(eg.review tests), ordering medications,tests, procedures, referring, communicating with other health early breastfeeding care specialist, indepentently interpreting results, counseling the patient and other ([id number] postoperative encounter)
--- NOTE | 2023-08-31 10:26 | PT.INTREAT ---
PT Notes Visit Reasons: Diverticulitis SI w/perforation Physical Therapy Inpatient Treatment Note Date: 08/31/2023 Precautions: Fall. Standard. Activity as tolerated. Subjective: Uncomfortable, has not had a bowel movement since . Willing to be mobilized this morning by PT. Relieved when he was able to finally have a bowel movement after the first walk through the whole med surg loop. Complained of pain in surgical incision at 5/10 whne he attempted to walk without 50 feet without an assistive device. Objective: General Observation: Surgical drain in place. Mahmood catheter in place. IV access through left UE. Mental Status: Alert and oriented as to person, place, time, and purpose. Able to pay attention, focus, and respond appropriately. Pain: As above Vital Signs: Closely monitored by nursing staff Bed Mobility/Transfers: Sit to stand modified independent with FWW Stand to sit modified independent with FWW Gait: 600 feet with FWW with supervision. Complained of pain in surgical incision at 5/10 when he attempted to walk without 50 feet without an assistive device. Needed to reuse FWW with good pain relief. Balance: Static Sitting: Normal Dynamic Sitting: Normal Static Standing: Fair Dynamic Standing: Fair ASSESSMENT: Finally had a bowel movement after walking the first big loop with PT for this session. Has not defecated since day of admission/. Activity tolerance improving. Pain level decreasing. Provided safety strategies to ensure improved ability to perform transfers and ambulation to minimize pain and allow for increased independence. Patient made independent in room and hallway using FWW as of today as long as pain is well-controlled. Plan of Care/Treatment Plan: 1-2x/day, 7 days/week x 1 week. Plan of care has been reviewed with the PUBLIC HEALTH DIRECTOR providing the service under Physical Therapy direction. Initiate Physical Therapy intervention for pain management as needed, strengthening, bed mobility, transfers, gait, stairs, balance training, and use of assistive device. DISCHARGE RECOMMENDATIONS: [] Home with no services [] [X] Home with services. Patient will benefit from home health PT services in order to progress mobility level using least restrictive assistive ambulatory device, assess home safety, identify additional equipment needs, and establish a functional maintenance program that will increase ability of patient to remain at home. [] Home with outpatient PT [] [] SNF for continued rehabilitation [] [] Wellness Assistant Care [] [] SNF versus LTC based on ability to participate and progress [] TREATMENT CODE/TIME: 87001 x 23 minutes for 2 units (10:23-10:46).
--- NOTE | 2023-08-31 13:22 | PDOC.HHF2F_ITS ---
Home Health Referral Home Health Orders Clinical synopsis of why skilled professionals are needed: Wound care and KAMILAH drain care, teach empty, record drain output, pack midline with 4x4 gauze dressing Medical diagnosis necessitation home health referral: small bowel diverticulitis with perforation, requirement for wound care and drain care Encounter Date and Reason: I certify that a FTF encounter for this patient was performed on August 31, 2023 and that such encounter was related to the primary reason the patient requires home health services. The encounter was conducted in the following manner: * By me as the certifying physician, RAILROAD BRAKEMAN, PA or * By an inpatient physician, RAILROAD BRAKEMAN or PA during an inpatient stay who communicated findings to me, Certification And Authentication I certify that I composed the above information based on my clinical judgment relating to this patient's medical condition and, if applicable, clinical findings communicated to me by the NPP or inpatient physician who performed the FTF encounter. Name of Provider that will be monitoring home health services: out of area
[2023-08-31 16:32] VITALS: BP 118/76; PULSE 92; RESP 18; TEMP 37.4; O2SAT 95
[2023-08-31] MEDS: Gabapentin 100 MG CAP PO (20:59)
[2023-08-31] MEDS: Amoxicillin 875/Clav. 125 TAB PO (20:59)
[2023-08-31 22:33] VITALS: BP 117/84; PULSE 75; RESP 16; TEMP 37; O2SAT 92
[2023-09-01 06:56] LABS: Abs Immature Grans 0.04 10^3/uL (0.0-0.06); Absolute Basophil Count 0.04 10^3/uL (0.0-0.2); Absolute Monocyte Count 0.42 10^3/uL (0.1-0.8); Absolute Neutrophil Count 5.01 10^3/uL (1.2-6.7); Basophils % 0.6; Eosinophils % 2.9; HCT 45.9 % (40.0-50.0); HGB 15.4 g/dL (13.5-17.5); Immature Grans % 0.6; Lymphocytes % 17.4; MCH 32.8 pg (27.0-33.0); MCHC 33.6 % (32.0-36.0); MCV 98 fL (80-95); MPV 8.7 fL (8.0-11.0); Monocytes % 6.1; Neutrophils % 72.4; Platelet Count 468 10^3/uL (130-400); RBC 4.69 10^6/uL (4.36-5.78); RDW 12.5 % (11.8-14.1); RDW-SD 45.1 fL; WBC 6.91 10^3/uL (4.4-10.8)
[2023-09-01 07:14] LABS: Anion Gap 13.8 mmol/L (3-11); BUN 13 mg/dL (7-18); CO2 21.2 mmol/L (21.0-32.0); Calcium 9.1 mg/dL (8.5-10.1); Chloride 106 mmol/L (98-107); Estimated GFR 83.01 (mL/min/1.73m2); Glucose 88 mg/dL (74-106); Potassium 4.1 mmol/L (3.5-5.1); Sodium 141 mmol/L (136-145)
[2023-09-01 08:25] VITALS: BP 119/82; PULSE 104; RESP 18; TEMP 36.6; O2SAT 92
[2023-09-01] MEDS: Amoxicillin 875/Clav. 125 TAB PO (08:34)
[2023-09-01] MEDS: Normal Saline Flush 10 ML SYR IVP (08:34)
[2023-09-01] MEDS: Enoxaparin 40 MG/0.4 ML SYR SC (08:34)
[2023-09-01] MEDS: Losartan 50 MG TAB 100 MG PO (08:35)
[2023-09-01] MEDS: Acetaminophen 325 MG TAB 975 MG PO (08:35)
[2023-09-01] MEDS: Gabapentin 100 MG CAP PO (08:35)
--- NOTE | 2023-09-01 09:55 | PDOC.DSDIS_ITS ---
Date of service: 09/01/23 Time of Service: 09:55 Discharge Plan Disposition Patient Disposition: Home Condition: Stable Discharge Details Reason For Visit: Diverticulitis SI w/perforation Admit Date/Time: 08/31/23 10:47 Admit Provider: Rashi Cerda Attending Provider: Rashi Cerda Primary Care Provider: Jean Carlos David Hospital Course Hospital Course: presented on 08/27/23 for evaluation of 10 days of severe pain, he underwent appropriate workup in the ER, and CT demonstrated evidence of perforation of small bowel, with jejunal diverticulitis. Taken to OR emergently on 08/27/23 and small bowel resection with anastomosis. postop course remarkable only for postoperative ileus, as it required 5 days before return of bowel function, he is now tolerating adequate PO intake, IV fluids discontinued. he was transitioned to PO augmentin on 08/31/23, WBC remains stable. he is clear for d/c to home today. Plan for 4x4 wick gauze dressings in the midline wound. Home Meds and New Rx's Prescriptions: New cyclobenzaprine 10 mg Tablet 10 mg PO TID PRN PRN (Reason: Spasms) Qty: 30 1RF acetaminophen 325 mg Tablet 1,000 mg PO TID PRN (Reason: Pain, Mild) Qty: 50 0RF amoxicillin-pot clavulanate 875-125 mg Tablet 1 tab PO BID Qty: 4 0RF Continued triamcinolone acetonide 0.1 % cream 1 applic topical BID Qty: 15 0RF aspirin 325 mg tablet 325 mg PO DAILY PRN losartan 100 mg tablet 100 mg PO DAILY Qty: 90 3RF Discontinued cyclobenzaprine 10 mg tablet 10 mg PO TID PRN (Reason: muscle spasm) Qty: 12 0RF Discharge Instructions Instructions: Surgical Site Infections (DC) Additional Instructions: Please replace gauze dressing in your midline incision at least 1x daily. If you take a shower, remove the dressing, allow clean water into your wound. After shower pat the skin dry, replace the 4x4 gauze dressing into the middle wound. Follow-up visit on 09/02 at 11:00 AM at the surgery clinic for drain removal Follow-up visit on 09/09 time to be scheduled for removal of your britta. Activity:: Activity as Tolerated Equipment/Supplies:: Dressing supplies Diet:: Soft foods Discharge Orders Discharge Orders: Discharge Order (Routine); Ordered 09/01/23 Ordered By: Rashi Cerda DS: Diagnosis Discharge Diagnosis (1) Small bowel perforation: Status: Acute Asessment and Plan: s/p small bowel resection with anastomosis on 08/27/[address] Rashi Cerda for emergent presentation, small bowel perforation, mesenteric abscess f/u pathology results once available patient unable to accept wound prison health nursing at his home, as he does not believe it welcoming for visitors. He does not have running water at home. He prefers to travel to clinic daily for dressing changes he has agreed that he will be able to cleanse himself on the weekends and perform basic dressing care when clinic is closed (2) Acute postoperative pain: Status: Acute Asessment and Plan: continue around the clock acetaminophen, flexeril, and may use ibuprofen for breakthrough discomfort discussed importance of fluid hydration
[2023-09-01 11:31] VITALS: BP 118/79; PULSE 64; RESP 17; TEMP 36.5; O2SAT 95
--- NOTE | 2023-09-01 12:24 | W.PM.PROGNOT ---
Date of Service Date of service: 09/01/23 Time of Service: 12:24 Assessment and Plan Assessment and plan (1) Small bowel perforation: Status: Acute Assessment and plan: s/p small bowel resection on 08/27/2023 Doing well today no nausea, no vomiting no belching, no GERD, reflux Slightly increasing appetite He is cleared for discharge home Wound care to be performed at the clinic, he has agreed to return to clinic daily for his wound care. He has a follow-up visit on 09/03/[address] Juliana Gabriel for removal of KAMILAH drain Tentative visit on 09/10/2023 for staple removal Prescriptions sent to pharmacy: Acetaminophen, Flexeril, Augmentin Discussed signs and symptoms that should prompt emergency medical evaluation in the emergency department We discussed importance of wound care and avoiding development of a wound infection. Discharge summary completed. Subjective Subjective Interval history since last seen: No acute events overnight Doing very well today Pain is well-controlled Not requiring narcotics Normal bowel function He is ready for discharge home Exam Narrative Exam Narrative: GEN; nad, awake, alert, oriented sitting awake, supine in the bed chest: bilateral excursion w/ respiration abd: Wick gauzes continue to have purulent discoloration and discharge from the midline since surgery, KAMILAH drain remains in place, 4 x 4 wick gauze packed into the middle incision, britta remain in place Objective Last Vital Signs Temp 97.7 F 09/01/23 11:31 Pulse 64 09/01/23 11:31 Resp 17 09/01/23 11:31 BP 118/79 09/01/23 11:31 Pulse Ox 95 09/01/23 11:31 Laboratory Results - last 24 hr 09/01/23 06:10 WBC 6.91 RBC 4.69 Hgb 15.4 D Hct 45.9 MCV 98 H MCH 32.8 MCHC 33.6 RDW 12.5 Plt Count 468 H MPV 8.7 Immature Gran % 0.6 Neutrophils % 72.4 Lymphocytes % 17.4 Monocytes % 6.1 Eosinophils % 2.9 Basophils % 0.6 Nucleated RBC % 0.0 Absolute Neutrophils 5.01 Absolute Lymphocytes 1.20 Absolute Monocytes 0.42 Absolute Eosinophils 0.20 Absolute Basophils 0.04 Sodium 141 Potassium 4.1 Chloride 106 Carbon Dioxide 21.2 Anion Gap 13.8 H BUN 13 Creatinine 1.0 Est GFR (CKD-EPI 2020) 83.01 Glucose 88 Calcium 9.1 Time Spent with Patient Time Spent with Patient: <25 minutes Time was spent: preparing to see the patient(eg.review tests), obtaining and/or reviewing separately otained hiistory, ordering medications,tests, procedures, counseling the patient and care coordination
--- NOTE | 2023-09-01 16:44 | PDOC.CMDIS ---
Date of service: 09/01/23 Time of Service: 16:44 LACE Index Scoring Tool Questions: Length of Stay (in days): 4 - 6 Was the patient admitted via the E.D.?: Yes E.D. Visits: 0 Answers: Total Score: 7 Risk of Readmission: Low Risk Care Management Discharge Plan Reason for Hospitalization: Peritonitis, small bowel perforation Discharge Plan: Jann will return home today with no new services. services were offered, and Jann declined. Jann requires daily dressing changes, and asked if this could be managed by the surgical office; CM discussed this with Melia, who stated that they will be able to support his daily dressing changes during the week. He plans to go to the office tomorrow at 11am. He has his vehicle here, and will drive himself home. He will follow up with surgical services and his discharge plan of care. He is happy to be going home. Patient/Family Education Needs: Review discharge instructions and limitations, discussion of self care needs including ask me three. [facility] Related Social Needs: No Data to Display
== END 2023-09-01 12:18 | disposition home or self-care (01) | DRG 329 ==
LOC: ER 14:10 → DSU 14:54 → MS 08-28 07:32
PROVIDERS: Admitting Provider Surgery; Emergency Provider Physician Assistant; PCP Nurse Practitioner Family; Visit Provider Surgery
PROC: 0DNA4ZZ Release Jejunum, Percutaneous Endoscopic Approach (ICD-10-PCS; CPT 49320; principal; 2023-08-27 14:45)
DX: K57.00 Diverticulitis of small intestine with perforation and abscess without bleeding (principal); K65.0 Generalized (acute) peritonitis; K91.89 Other postprocedural complications and disorders of digestive system; K56.7 Ileus, unspecified; I10 Essential (primary) hypertension; G89.18 Other acute postprocedural pain; Z53.31 Laparoscopic surgical procedure converted to open procedure; F12.90 Cannabis use, unspecified, uncomplicated; E78.5 Hyperlipidemia, unspecified
CPT/HCPCS: 44120; 49020; 36410; 00123; 36415; 80048; 80053; 82550; 83690; 87040; 87798; 93005; 96360; 96361; 96365; 96366; 96375; 96376; 97110; 97162; 97530; 99223; 99291; J1650; 71046; 74177; 81003; 83605; 83735; 84134; 84443; 84484; 85025; 86618; 88307; 93010; C9290; J0131; J0665; J1100; J1885; J2001; J2371; J2405; J2543; J2704; J3475; J3490

== ENCOUNTER → 2023-09-02 10:57 | Outpatient (BNVA) | payer MEDICARE, SELFPAY | PROVIDERS: PCP Nurse Practitioner Family; Referring Provider Nurse Practitioner Family; Visit Provider Surgery | DX: Z48.815 Encounter for surgical aftercare following surgery on the digestive system (principal) ==

== ENCOUNTER 2023-09-03 09:05 | Inpatient (IN) | payer MEDICARE, SELFPAY ==
[2023-09-03] VITALS (23 sets, daily range): BP systolic 115–177; BP diastolic 76–84; PULSE 66–119; RESP 13–24; TEMP 36.2–37.1; O2SAT 93–97
--- NOTE | 2023-09-03 09:15 | RT.EKG_ITS ---
APPROVED REPORT Exam: Resting ECG Reason for Exam: SOB/tachy Patient Location: E HR:71 bpm ECG Measurements Heart Rate 71 AXIS CA 142 P 45 QRSd 87 QRS 9 QT 396 T 146 QTc 418 Conclusion Sinus rhythm 71 no stemi
[2023-09-03] MEDS: Normal Saline - Diluent 50 ML VIAL IJ (10:19)
[2023-09-03] MEDS: Omnipaque 350 MG/ML 500 ML BTL-Imaging package 100 ML IJ (10:22)
--- NOTE | 2023-09-03 10:30 | DI.CT_ITS ---
Exam(s) CT CHEST PE CTA EXAM: CT CHEST PE CTA CLINICAL HISTORY: sob. TECHNIQUE: Imaging Protocol: Axial CT angiography was performed with multi-slice acquisition and mu lti-planar and/or 3D reconstructions. CONTRAST MATERIAL: Intravenous: Omnipaque 350 contrast volume:100 mL COMPARISON: CT CT ABDOMEN PELVIS W from 08/27/2023 FINDINGS: Tracheobronchial tree: Patent where visualized. Pulmonary parenchyma: There are small bilateral pleural effusions. There are dependent infiltrates i n the lungs which may represent atelectasis or pneumonia. No architectural distortion. Pulmonary Arteries: There are filling defects seen in branches of the pulmonary artery to the left lo wer lobe. Findings are consistent with pulmonary emboli. No central pulmonary embolus or saddle pul monary embolus is seen. The peripheral opacity in the left lung base may represent an infarct. Mediastinum and Anastasiya: No dominant adenopathy or fluid collection. The esophagus is unremarkable. Th ere is a small hiatal hernia. Visualized thyroid gland: Unremarkable. Pleura: No pneumothorax. Heart: The heart is not dilated. Coronary artery calcifications are present. No pericardial effusion . Aorta: Thoracic aorta non-dilated. There is limited evaluation of the thoracic aorta due to the timin g of the bolus being coordinated for the pulmonary artery opacification. Atherosclerotic calcificati on is present. Tubes, Catheters, and Lines: Soft tissues: Unremarkable. Bones: Within normal limits for the patient's age.There is a healing right 6th rib fracture laterally . IMPRESSION: 1. Filling defects seen in branches of the pulmonary artery to the left lower lobe consistent with pu lmonary emboli. 2. RV to LV ratio greater than 1 suggesting right heart strain. 3. Peripheral infiltrate in the left lower lobe. While this may represent a pneumonia or atelectasis , infarct cannot be excluded. 4. Small bilateral pleural effusions and subjacent infiltrate. 5. Findings were discussed with Dr. Pond at 11:15 a.m. on 09/03/2023. RADIATION DOSE DELIVERED: Total DLP DATA REPOSITORY: All CT scans at this facility are submitted to the National Radiology Data Registry (NRDR) Dose Index Registry (DIR) with the [employer] (A[employer]). RADIATION OPTIMIZATION: All CT scans at this facility use at least one of these dose optimization te chniques: automated exposure control; mA and/or kV adjustment per patient size (includes targeted exa ms where dose is matched to clinical indication); or iterative reconstruction.
--- NOTE | 2023-09-03 10:35 | DI.CT_ITS ---
Exam(s) CT ABDOMEN PELVIS WO EXAM: CT ABDOMEN PELVIS WO CLINICAL HISTORY: drain/ abscess f/u. TECHNIQUE: Imaging Protocol: Axial computed tomography images with coronal and sagittal reformatted images were created and reviewed. COMPARISON: CT CT ABDOMEN PELVIS W from 08/27/[address] CHEST PE CTA from 09/03/2023 FINDINGS: Examination was performed following a PE CT scan of the chest. ABDOMEN: Liver: There is decreased attenuation of the liver suggesting fatty infiltration. There is a cyst in the left lobe of the liver which appears stable. No suspicious masses are seen. Gallbladder and biliary tract: No radiodense calculus or biliary ductal dilation. Pancreas: Normal density, no abnormal calcifications or inflammatory process. Spleen: Normal. Kidneys: Normal size, contour and axis.No radiodense stones or obstructive uropathy. No masses seen. There is contrast seen in the renal collecting system from the patient's prior contrast CT scan of th e chest. Adrenal glands: No mass is seen. Lymph nodes: Within normal limits. Abdominal Aorta: Abdominal portion non-dilated. Atherosclerotic calcification is present. PELVIS: Bladder:Symmetric distention, no gross wall thickening. There is contrast seen in the urinary bladder from the patient's recent CT scan of the chest. Bowel: There is diverticulosis of the colon without evidence of acute diverticulitis. There is an an astomosis in the small bowel in the left abdomen. No evidence of appendicitis. Peritoneal cavity: There is a there is a 2.2 x 2.6 x 3.1 cm fluid collection in the left anterior abd omen suggestive of an abscess. Inflammation in the surrounding soft tissues is noted. There are mil dly enlarged lymph nodes in the mesentery which are likely reactive. No free air. There is a cathet er is seen entering the abdomen in the left anterior abdominal wall. Reproductive organs: Unremarkable as visualized. Bones: Within normal limits. There is an old healing right rib fracture. The patient has a right tot al hip replacement. Soft Tissues: Within normal limits. IMPRESSION: 1. Status post small bowel anastomosis in the left abdomen. 2. 2.2 x 2.6 x 3.1 cm fluid collection in the left anterior abdomen suggestive of an abscess. Reacti ve enlarged lymph nodes are seen in the adjacent mesentery in addition to inflammation in the soft ti ssues. 3. No free air. RADIATION DOSE DELIVERED: Total DLP DATA REPOSITORY: All CT scans at this facility are submitted to the National Radiology Data Registry (NRDR) Dose Index Registry (DIR) with the [employer] (ACR). RADIATION OPTIMIZATION: All CT scans at this facility use at least one of these dose optimization te chniques: automated exposure control; mA and/or kV adjustment per patient size (includes targeted exa ms where dose is matched to clinical indication); or iterative reconstruction.
[2023-09-03 10:52] LABS: Abs Immature Grans 0.06 10^3/uL (0.0-0.06); Absolute Basophil Count 0.04 10^3/uL (0.0-0.2); Absolute Eosinophil Count 0.18 10^3/uL (0.0-0.7); Absolute Lymphocyte Count 0.96 10^3/uL (1.2-3.4); Absolute Neutrophil Count 6.97 10^3/uL (1.2-6.7); Basophils % 0.5; HCT 39.6 % (40.0-50.0); HGB 13.5 g/dL (13.5-17.5); Immature Grans % 0.7; Lymphocytes % 10.9; MCH 33.3 pg (27.0-33.0); MCHC 34.1 % (32.0-36.0); MCV 98 fL (80-95); MPV 8.5 fL (8.0-11.0); Monocytes % 6.8; Neutrophils % 79.1; Platelet Count 535 10^3/uL (130-400); RBC 4.05 10^6/uL (4.36-5.78); RDW 12.8 % (11.8-14.1); RDW-SD 45.5 fL; WBC 8.81 10^3/uL (4.4-10.8)
[2023-09-03 11:03] LABS: INR 1.1 (0.9-1.1); Prothrombin Time 11.1 sec (9.1-11.1)
--- NOTE | 2023-09-03 11:10 | PGE_ITS ---
Date of Service Date of service: 09/03/23 Time of Service: 11:10 Assessment and Plan Assessment and plan (1) Marijuana smoker: Status: Acute (2) Hypertension: Status: Chronic Qualifiers: Hypertension type: primary hypertension Qualified Code(s): I10 - Essential (primary) hypertension (3) Hyperlipidemia: Status: Acute Qualifiers: Hyperlipidemia type: mixed hyperlipidemia Qualified Code(s): E78.2 - Mixed hyperlipidemia (4) Tubular adenoma: Status: Acute (5) Antibiotic-associated diarrhea: Status: Acute (6) S/P laparotomy: (7) Perforated diverticulum of jejunum: Status: Acute Assessment and plan: - CT of the abdomen pelvis was done today in conjunction with a CT of the chest. There is no sign of any abscess in the abdomen. The KAMILAH drain was removed. (8) Pulmonary embolism: Status: Chronic Assessment and plan: Patient does unfortunately have a PE. He is safe for anticoagulation. He is going to be admitted to the medicine service. we will follow-up Subjective Subjective Interval history since last seen: pt here today c/o SOB. He is coughing up slight spututm- but this was going on prior to surgery. unclear if there are fever/chills. He notes he is having 3-5BM a day and are pure water. He has no appetite adn has not been eating. He does not know if he has been losing weight. He c/o pain in left calf. He appears comfortable at bedside and in no distress Patient also states he woke up today and had gross blood in the tubing but not in the drain. He has had minimal output from the drain. he denies any trauma to the drain itself. He is not having any abdominal pain. He has had no pain or difficulty urinating. Exam Narrative Exam Narrative: H r/r/r L cta b/l wound 1.5..75x.75cm Good beefy granulation. The fascia is intact. There is no purulent drainage. The drain has less than 10 cc of blood and clot in. The drain site is clean dry and intact. Is no redness drainage or swelling. Objective Last Vital Signs Temp 36.8 C 09/03/23 09:16 Pulse 119 H 09/03/23 09:16 Resp 18 09/03/23 09:16 BP 177/84 H 09/03/23 09:16 Pulse Ox 97 09/03/23 09:16 Laboratory Results - last 24 hr 09/03/23 10:46 WBC 8.81 RBC 4.05 L Hgb 13.5 Hct 39.6 L MCV 98 H MCH 33.3 H MCHC 34.1 RDW 12.8 Plt Count 535 H MPV 8.5 Immature Gran % 0.7 Neutrophils % 79.1 Lymphocytes % 10.9 Monocytes % 6.8 Eosinophils % 2.0 Basophils % 0.5 Nucleated RBC % 0.0 Absolute Neutrophils 6.97 H Absolute Lymphocytes 0.96 L Absolute Monocytes 0.60 Absolute Eosinophils 0.18 Absolute Basophils 0.04 PT 11.1 INR 1.1 Time Spent with Patient Time Spent with Patient: 25-34 minutes Time was spent: preparing to see the patient(eg.review tests), obtaining and/or reviewing separately otained hiistory, ordering medications,tests, procedures, referring, communicating with other health transitional care nurse, indepentently interpreting results, counseling the patient and care coordination
[2023-09-03 11:16] LABS: ALT 63 U/L (16-63); AST 39 U/L (15-37); Albumin 2.6 g/dL (3.4-5.0); Alkaline Phosphatase 169 U/L (46-116); Anion Gap 13.3 mmol/L (3-11); BUN 16 mg/dL (7-18); Bilirubin, Total 0.6 mg/dL (0.2-1.0); CO2 21.7 mmol/L (21.0-32.0); CREATININE 1.2 mg/dL (0.70-1.30); Calcium 8.8 mg/dL (8.5-10.1); Chloride 101 mmol/L (98-107); Glucose 96 mg/dL (74-106); NT-proBNP 80 pg/mL (<300); Sodium 136 mmol/L (136-145); Total Protein 7.4 g/dL (6.4-8.2)
[2023-09-03] MEDS: Heparin in 0.45% NaCl 25,000 UNIT/250 ML BAG 17.5 UNIT IV (11:51)
[2023-09-03 12:02] LABS: PTT Activated 27.6 sec (23.6-32.8)
--- NOTE | 2023-09-03 12:05 | W.ED.GENAD ---
Discharge Plan Disposition Patient Disposition: Admit to [facility] Condition: Fair Discharge Details Chief Complaint: SOB/SuddenOnset Clinical Impression: Pulmonary embolism Primary Care Provider: Jean Carlos David ED Provider: Colton Pond Home Meds and New Rx's Prescriptions: No Action losartan 100 mg tablet 100 mg PO DAILY Qty: 90 3RF cyclobenzaprine 10 mg Tablet 10 mg PO TID PRN PRN (Reason: Spasms) Qty: 30 1RF acetaminophen 325 mg Tablet 1,000 mg PO TID PRN (Reason: Pain, Mild) Qty: 50 0RF amoxicillin-pot clavulanate 875-125 mg Tablet 1 tab PO BID Qty: 4 0RF HPI General Date/Time Provider Initiated Documentation: 09/03/23 09:19. Limitations to Documentation: no limitations. Information obtained by: patient. HPI Narrative: 67-year-old gentleman with past medical history including hypertension, recent hospitalization and surgery for perforated diverticulum presents for evaluation of acute left leg pain and shortness of breath. He reports that he had acute onset of the left leg pain this morning. He reports that it has been severe, constant all day. Localizes the pain to the left calf. He reports shortness of breath with exertion. Denies any chest pain. Denies any shortness of breath at rest. Related Data Home Medications Medication Instructions Recorded Confirmed losartan 100 mg tablet 100 mg PO DAILY #90 tabs 02/26/23 09/03/23 acetaminophen 325 mg tablet 1,000 mg (3.0769 x 325 mg) PO TID 09/01/23 09/03/23 PRN Pain, Mild #50 tabs amoxicillin 875 mg-potassium 1 tab PO BID #4 tabs 09/01/23 09/03/23 clavulanate 125 mg tablet cyclobenzaprine 10 mg tablet 10 mg PO TID PRN PRN Spasms #30 09/01/23 09/03/23 tabs Previous Rx's Medication Instructions Recorded losartan 100 mg tablet 100 mg PO DAILY #90 tabs 02/26/23 acetaminophen 325 mg tablet 1,000 mg (3.0769 x 325 mg) PO TID 09/01/23 PRN Pain, Mild #50 tabs amoxicillin 875 mg-potassium 1 tab PO BID #4 tabs 09/01/23 clavulanate 125 mg tablet cyclobenzaprine 10 mg tablet 10 mg PO TID PRN PRN Spasms #30 09/01/23 tabs Allergies Allergy/AdvReac Type Severity Reaction Status Date / Time No Known Allergies Allergy Verified 09/03/23 10:50 General Stated Complaint: SOB/SuddenOnset TALIB: 3 Exam Narrative Exam Narrative: Review of Systems: All systems reviewed & are unremarkable except as noted in HPI and below Well-developed, mild distress NCAT PERRL, normal conjunctiva RRR tachycardia Mild increased work of breathing, no tachypnea or hypoxia Nondistended abdomen KAMILAH drain in place, surgical britta still in place, no generalized tenderness, no evidence of infection Left calf with tenderness, mild swelling No rashes or lesions. no focal neurologic deficits Appropriate mood and affect Course Vital Signs Vital signs: Vital Signs Temperature 36.8 C 09/03/23 09:16 Pulse 119 H 09/03/23 09:16 Respiratory Rate 18 09/03/23 09:16 Blood Pressure 177/84 H 09/03/23 09:16 Pulse Oximetry 97 09/03/23 09:16 Temperature 36.8 C 09/03/23 09:16 Temperature Source Temporal Artery Scan 09/03/23 09:16 Pulse 119 H 09/03/23 09:16 Pulse 70 09/03/23 12:00 Respiratory Rate 19 09/03/23 12:00 Respiratory Effort Short of Breath 09/03/23 11:10 Respiratory Depth Normal 09/03/23 11:10 Respiratory Pattern Normal 09/03/23 11:10 Blood Pressure 177/84 H 09/03/23 09:16 Blood Pressure Position Sitting 09/03/23 09:16 Pulse Oximetry 97 09/03/23 09:16 Oxygen Delivery Method Room Air 09/03/23 09:16 Oxygen Flow Rate 0 09/03/23 09:16 Pain Level 7 09/03/23 11:10 Comment tylenol 2 hours prior 09/03/23 09:16 Lab/Test Results Lab/Test Results: Laboratory Tests Range/Units 09/03/23 10:46 WBC (4.4-10.8) 10^3/uL 8.81 RBC (4.36-5.78) 10^6/uL 4.05 L Hgb (13.5-17.5) g/dL 13.5 Hct (40.0-50.0) % 39.6 L MCV (80-95) fL 98 H MCH (27.0-33.0) pg 33.3 H MCHC (32.0-36.0) % 34.1 RDW (11.8-14.1) % 12.8 Plt Count (130-400) 10^3/uL 535 H MPV (8.0-11.0) fL 8.5 Immature Gran % 0.7 Neutrophils % 79.1 Lymphocytes % 10.9 Monocytes % 6.8 Eosinophils % 2.0 Basophils % 0.5 Nucleated RBC % (0.0-0.3) % 0.0 Absolute Neutrophils (1.2-6.7) 10^3/uL 6.97 H Absolute Lymphocytes (1.2-3.4) 10^3/uL 0.96 L Absolute Monocytes (0.1-0.8) 10^3/uL 0.60 Absolute Eosinophils (0.0-0.7) 10^3/uL 0.18 Absolute Basophils (0.0-0.2) 10^3/uL 0.04 PT (9.1-11.1) sec 11.1 INR (0.9-1.1) 1.1 APTT (23.6-32.8) sec 27.6 Sodium (136-145) mmol/L 136 Potassium (3.5-5.1) mmol/L 4.0 Chloride (98-107) mmol/L 101 Carbon Dioxide (21.0-32.0) mmol/L 21.7 Anion Gap (3-11) mmol/L 13.3 H BUN (7-18) mg/dL 16 Creatinine (0.70-1.30) mg/dL 1.2 Est GFR (CKD-EPI 2020) (mL/min/1.73m2) 66.70 Glucose (74-106) mg/dL 96 Calcium (8.5-10.1) mg/dL 8.8 Total Bilirubin (0.2-1.0) mg/dL 0.6 AST (15-37) U/L 39 H ALT (16-63) U/L 63 Alkaline Phosphatase (46-116) U/L 169 H NT-Pro-B Natriuret Pep (<300) pg/mL 80 Total Protein (6.4-8.2) g/dL 7.4 Albumin (3.4-5.0) g/dL 2.6 L Medical Decision Making Urgent evaluation of left leg pain and shortness of breath. Patient had recent hospitalization and complicated surgical procedure. He is high risk for pulmonary embolism. He presented tachycardic. He has some mild evidence of shortness of breath, but no signs of respiratory distress. He is still high risk, will send for a CTA He also had a surgery clinic Appointment scheduled for today, I have notified surgery that he will not make this appointment, they will come evaluate him in the emergency department. Lab work reviewed. No leukocytosis or significant anemia. His renal function is within normal limits. His BNP is not elevated. CT imaging obtained and this does demonstrate a left lower lobe pulmonary embolism with some evidence of right heart strain. I discussed with the radiologist. The patient was evaluated from a postop perspective by general surgery. I discussed anticoagulation with her and she indicates that there is no contraindication to doing this. He will be started on a heparin infusion. He did report to the general surgeon that he has been having liquid bowel movements. A C. difficile study was ordered by them, but he has not had any bowel movements in the ED. Discussed with the hospitalist and the patient will be admitted to their service for further management of his pulmonary embolism. Medical Records Medical records reviewed: Yes I reviewed the patient's medical records. Lab Data Lab results reviewed: Yes I reviewed the patient's lab results. ECG Data Attestation: I personally reviewed and interpreted this ECG (s) as follows: Interpretation: Sinus 71, normal axis, PVCs Quality:SDOH Health Related Social Needs: No Data to Display Critical Care Time Critical Care Time Critical Care Time: Yes Total Critical Care Time: 35 Attestation: CRITICAL CARE Upon my evaluation, this patient had a high probability of imminent or life-threatening deterioration due to pulmonary embolism which required my direct attention, intervention, and personal management. I have personally provided 35 minutes of critical care time exclusive of time spent on separately billable procedures. Time includes review of laboratory data, radiology results, discussion with consultants, and monitoring for potential decompensation. Interventions were performed as documented above [facility] All Active Problems (Updated 09/03/23 @ 12:14 by Colton Pond MD) Pulmonary embolism (Chronic) Perforated diverticulum of jejunum (Acute) Antibiotic-associated diarrhea (Acute) Skin lesion (Acute) Headache (Acute) Hyperlipidemia (Acute) Joint pain (Acute) Marijuana smoker (Acute) Hypertension (Chronic) Actinic keratosis (Acute) Tubular adenoma (Acute) Medical History Diverticulitis, jejunum Small bowel perforation Persistent fatigue after COVID-19 COVID-19 Bradycardia Surgical History S/P laparotomy 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) Hx of hernia repair History of colonoscopy with polypectomy (~07/12/21) Family History Mother Hypertension Sister Hypertension Stroke Brother , 54 Hypertension Brother Hypertension Brother Hypertension Social History Smoking/Tobacco Use Status: Never Second Hand Exposure: Yes Smoking risk assessment performed?: Yes Alcohol Intake: former Drug use: Daily Substance use type: marijuana Details: smokes daily-weekly marijuana depending on his activity Adopted: No Caregiver/Support person: No Foster care: No Household members: none Housing: house Number of Children: 2 number of grandchildren: 1 Communication Needs: None Do you need help understanding health information?: Never Pets and animals: No Sexually active: No Do you think of yourself as: straight/heterosexual Current gender identity: male What is your relationship status?: How often do you talk on the phone with friends or family?: three or more times per week How often do you get together with friends or relatives?: once per week Do you belong to any clubs or organized social groups?: no Panel score (0-1 are the most socially isolated patients): 1 Stephie/Hinduism: No preference Seatbelt use: always Helmet use: Yes Helmet use: always Drive 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
[2023-09-03 12:12] LABS: Troponin I < 50 ng/L (< or =60)
[2023-09-03 12:28] LABS: COVID-19 PCR Negative (Negative); Influenza A PCR Negative (Negative); Influenza B PCR Negative (Negative); RSV PCR Negative (Negative)
[2023-09-03 12:29] LABS: Source Nasopharynx
--- NOTE | 2023-09-03 13:15 | DI.US_ITS ---
APPROVED REPORT EXAM: Comprehensive 2D, Doppler, and color-flow Echocardiogram Patient Location: In-Patient Room/Bed: 228 Traveling Secretary: Kadi Matthews RDCS (AE) Indications: PE evaluate for RV strain, HTN, SOB Other Information Study Quality: Adequate. Technically limited study due to body habitus. Conclusion Normal left ventricular wall thickness and chamber size. Ejection fraction is 55-60%. Wall motion i s normal NOrmal right ventricular dize and function Both atria are normal in size There is no structural or hemodynamically significant valvular disease Dilated aortic root and ascending aorta ( 4.38, 4.07 cm) Estimated right ventricular systolic pressure is 21 mmHg Wall motion Left Ventricle The left ventricle is normal size. The left ventricular systolic function is normal. The left ventric ular ejection fraction is within the normal range. There is normal left ventricular wall thickness. T here is normal LV segmental wall motion. There is no ventricular septal defect visualized. LVEF is 55 -60%. Right Ventricle The right ventricle is normal size. The right ventricular systolic function is normal. Atria The left atrium size is normal. Right atrium is normal The interatrial septum is intact with no evide nce for an atrial septal defect. Aortic Valve The aortic valve is normal in structure. Aortic valve is trileaflet. There is no aortic valvular sten osis. No aortic regurgitation is present. Mitral Valve The mitral valve is normal in structure. No evidence of mitral valve stenosis. Trace mitral regurgita tion. Tricuspid Valve The tricuspid valve is normal in structure. There is no tricuspid valve stenosis. Trace tricuspid reg urgitation. The RVSP is 21.2 mmHg. Pulmonic Valve The pulmonary valve is normal in structure. There is no pulmonic valvular stenosis. Trace pulmonic re gurgitation. Great Vessels Aortic root is moderately dilated. The ascending aorta is moderately dilated. Aortic arch is normal in caliber. IVC is normal in size and collapses >50% with inspiration. Pericardium There is no pericardial effusion. 2D Dimensions IVSD d PLAX 1.11 cm M: 0.6-1.2 Ao Root d 4.38 cm M: 3.1 - 3.7 LVPW d PLAX 1.11 cm M: 0.6 - 1.2 Ao Asc Diam d 4.07 cm M: 2.6 - 3.4 LVID d PLAX 4.57 cm M: 4.2 - 5.8 LVDs 3.30 cm M: 2.5 - 4.0 LV EF Teichholz 54.2 % FS 27.92 % LV EDV (Teich) 96.0 mL LV ESV (Teich) 44.0 mL M-Mode TAPSE 1.79 cm (M/F) >1.7 Auto EF LV EDV A4C 128.4 mL LV EDV A2C 112.4 mL LV EDV BP 119.7 mL LV ESV A4C 58.3 mL LV ESV A2C 51.9 mL LV ESV BP 55.2 mL LVEF(%) A4C 54.6 % LVEF(%) A2C 53.8 % LVEF(%) BP 53.9 % LV SV A4C 70.1 ml LV SV A2C 60.5 ml LV SV BP 64.5 ml LV CO A4C 4.7 L/min LV CO A2C 3.6 L/min LV CO BP 4.1 L/min HR A4C 67.14 BPM HR A2C 59.31 BPM LV EDV Index (BP) LV Strain Long Pk Overal Avg (s) 14.84 RV Strain Global Peak Long. Strain A4C 12.35 Global Peak Long. Strain A4C FW 11.46 LA Volume LA Length A4C 4.2 cm LA Length A2C 3.6 cm LA Area A4C s 10.27 cm2 LA Area A2C s 9.41 cm2 LA Vol A4C A-L 21.43 mL LA Vol A2C A-L 20.71 mL LA Vol Biplane A-L 22.6 mL LA Vol/BSA A4C A-L LA Vol/BSA A2C A-L LA Vol/BSA BP A-L 10.6 mL/m2 LA Vol A4C MOD 20.3 mL LA Vol A2C MOD 20.5 mL LA Vol BP MOD 21.8 mL RA Volume RA Area A4C 14.6 cm2 RA ESV A4C (A-L) 36.7mL RA Vol/BSA A4C A-L RA Length A4C 4.9 cm RA ESV A4C (MOD) 34.4mL LV Diastology MV E' medial 0.098 (>0.07 m/s) MV E Vmax 0.49 (0.4-1.3 m/s) MV E/E' MED 5.02 (<14) MV A Vmax 0.75 (0.4-1.3 m/s) MV E' lateral 0.076 (>0.1 m/s) E/A Ratio 0.7 MV E/E' LAT 6.44 (<14) MV E' Average 0.087 m/s MV E/E'(average) 5.64 Aortic Valve AoV Vmax 1.03 m/s LVOT Vmax 0.89 m/s AoV Peak Grad 4.3 mmHg LVOT Peak Grad 3.2 mmHg AoV Area (Vmax) 2.89 cm2 LVOT VTI 0.174 m AoV VTI 0.192 m LVOT Mean Grad 1.9 mmHg AoV Mean Landon. 0.73 m/s LVOT SV 58.21 mL AoV Mean Grad 2.4 mmHg LVOT Diam s 2.05 cm AoV Area (VTI) 3.03 cm2 Velocity Ratio 0.86 Mitral Valve MV DT 334 (160-240 msec) MV Vmax TIPS 0.76 m/s MV Mean Grad 0.7 (<2mmHg) MV VTI 0.202 m Pulmonary Valve PV Vmax 0.91 (0.5-1.5 m/s) RVOT Vmax 0.50 m/s PV Peak Grad 3.3 mmHg RVOT Peak Gr. 1.0 mmHg PV Mean Landon 0.57 m/s RVOT VTI 0.102 m PV Mean Grad 1.5 mmHg RVOT Mean Gr. 0.6 mmHg Tricuspid Valve RA Pressure 3.00 mmHg TR Vmax 2.13 m/s TV S' 0.17 m/s TR Peak Grad 18.1 mmHg RVSP (TR) 21.2 mmHg
--- NOTE | 2023-09-03 16:23 | W.SURGCON ---
Date of service: 09/03/23 Time of Service: 16:23 Assessment and Plan Assessment and plan (1) Marijuana smoker: Status: Acute (2) Hypertension: Status: Chronic Qualifiers: Hypertension type: primary hypertension Qualified Code(s): I10 - Essential (primary) hypertension (3) Hyperlipidemia: Status: Acute Qualifiers: Hyperlipidemia type: mixed hyperlipidemia Qualified Code(s): E78.2 - Mixed hyperlipidemia (4) Pulmonary embolism: Status: Chronic Assessment and plan: Stable for anticoagulation Will monitor for signs of bleeding (5) Antibiotic-associated diarrhea: Status: Acute Assessment and plan: c diff- pd (6) Perforated diverticulum of jejunum: Status: Acute History of Present Illness Narrative: pt came into the ER today c/o SOB. He is coughing up slight spututm- but this was going on prior to surgery. unclear if there are fever/chills. He notes he is having 3-5BM a day and are pure water. He has no appetite adn has not been eating. He does not know if he has been losing weight. He c/o pain in left calf. He appears comfortable at bedside and in no distress Patient also states he woke up today and had gross blood in the tubing but not in the drain. He has had minimal output from the drain. he denies any trauma to the drain itself. He is not having any abdominal pain. He has had no pain or difficulty urinating. Review of Systems All systems reviewed & are unremarkable except as noted in HPI and below PFSH All Active Problems Pulmonary embolism (Chronic) Perforated diverticulum of jejunum (Acute) Antibiotic-associated diarrhea (Acute) Skin lesion (Acute) Headache (Acute) Hyperlipidemia (Acute) Joint pain (Acute) Marijuana smoker (Acute) Hypertension (Chronic) Actinic keratosis (Acute) Tubular adenoma (Acute) Medical History Diverticulitis, jejunum Small bowel perforation Persistent fatigue after COVID-19 COVID-19 Bradycardia Surgical History S/P laparotomy 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) Hx of hernia repair History of colonoscopy with polypectomy (~02/18/22) Family History Mother Hypertension Sister Hypertension Stroke Brother , 54 Hypertension Brother Hypertension Brother Hypertension Social History Smoking/Tobacco Use Status: Never Second Hand Exposure: Yes Smoking risk assessment performed?: Yes Alcohol Intake: former Drug use: Daily Substance use type: marijuana Details: smokes daily-weekly marijuana depending on his activity Adopted: No Caregiver/Support person: No Foster care: No Household members: none Housing: house Number of Children: 2 number of grandchildren: 1 Communication Needs: None Do you need help understanding health information?: Never Pets and animals: No Sexually active: No Do you think of yourself as: straight/heterosexual Current gender identity: male What is your relationship status?: How often do you talk on the phone with friends or family?: three or more times per week How often do you get together with friends or relatives?: once per week Do you belong to any clubs or organized social groups?: no Panel score (0-1 are the most socially isolated patients): 1 Stephie/Zoroastrianism: No preference Seatbelt use: always Helmet use: Yes Helmet use: always Drive intox or ride w/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 in no acute distress HYDRATION: Well hydrated HEAD, EYES, EARS, NECK, THROAT: Head is normocephalic, pupils equal, round, reactive to light and accommodation, ocular movement intact, sclera clear and no jaundice. ?Dentition intact. LUNGS: normal respiration/normal chest excursion. ?Clear to auscultation bilaterally. ?No wheeze. ?HEART: Regular rate and rhythm. no murmurs EXTREMITY: Complains of pain in the left calf. There is no swelling or redness ABDOMEN: soft and non-tender to palpation.? Normal bowel sounds.? wound 1.5..75x.75cm Good beefy granulation. The fascia is intact. There is no purulent drainage. The drain has less than 10 cc of blood and clot in. The drain site is clean dry and intact. Is no redness drainage or swelling. The drain is removed today. Results Last Vital Signs Temp 36.2 C L 09/03/23 12:24 Pulse 71 09/03/23 12:24 Resp 16 09/03/23 12:24 BP 126/79 09/03/23 12:24 Pulse Ox 95 09/03/23 12:24 Labs 09/03/23 10:46 09/03/23 10:46 Labs: Laboratory Results - last 24 hr 09/03/23 09/03/23 10:46 11:43 WBC 8.81 RBC 4.05 L Hgb 13.5 Hct 39.6 L MCV 98 H MCH 33.3 H MCHC 34.1 RDW 12.8 Plt Count 535 H MPV 8.5 Immature Gran % 0.7 Neutrophils % 79.1 Lymphocytes % 10.9 Monocytes % 6.8 Eosinophils % 2.0 Basophils % 0.5 Nucleated RBC % 0.0 Absolute Neutrophils 6.97 H Absolute Lymphocytes 0.96 L Absolute Monocytes 0.60 Absolute Eosinophils 0.18 Absolute Basophils 0.04 PT 11.1 INR 1.1 APTT 27.6 Sodium 136 Potassium 4.0 Chloride 101 Carbon Dioxide 21.7 Anion Gap 13.3 H BUN 16 Creatinine 1.2 Est GFR (CKD-EPI 2020) 66.70 Glucose 96 Calcium 8.8 Total Bilirubin 0.6 AST 39 H ALT 63 Alkaline Phosphatase 169 H Troponin I < 50 NT-Pro-B Natriuret Pep 80 Total Protein 7.4 Albumin 2.6 L COVID-19 Source Nasopharynx SARS-CoV-2 (PCR) Negative Influenza Type A (PCR) Negative Influenza Type B (PCR) Negative RSV (PCR) Negative
--- NOTE | 2023-09-03 16:30 | CHAPLAIN ---
Jann was a patient here last week and was readmitted due to blood clots. He said he's nervous about the blood clots in his lungs and is glad to be here were he can be treated and monitored. 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 He moved to [place] to be closer to a son and granddaughter, but that hasn't worked out as he'd hoped. He's in touch with parents on the [facility]. Jann said he's likely to be here for a few days.
--- NOTE | 2023-09-03 16:34 | HPE_ITS ---
Date of service: 09/03/23 Time of Service: 16:34 Assessment and Plan Assessment and plan (1) Pulmonary embolism: Status: Chronic Assessment and plan: Continue unfractionated heparin drip overnight convert to apixaban in the morning and plan for discharge tomorrow morning Qualifiers: Pulmonary embolism type: multiple subsegmental (without acute cor pulmonale) Qualified Code(s): I26.94 - Multiple subsegmental pulmonary emboli without acute cor pulmonale History of Present Illness History of Present Illness Chief Complaint: left calf pain and numbness of left foot Narrative: 67 yr old male w/ PMH of HTN who was hospitalized 08/26-08/31 for Laparoscopic lysis of adhesions, abscess drainage, conversion to open-small bowel resection with [id number] anastomosis to treat Intra-abdominal abscess, perforated small bowel, small bowel diverticulosis. He presented to the ED today w/ acute left calf swelling and pain and numbness in left foot. He denies any dyspnea or chest pain. He was tachycardic HR 119, hypertensive but not hypoxic. CTA chest demonstrated filling defects in the branches of the left lower lung lobe c/w pulmonary emboi. The radiologist suggested that the RV to LV ratio was greater than 1 and suggested right heart strain. Troponin and BNP were normal. He was begun on unfractionated heparin drip by the ED provider (Dr. Pond) after she consulted w/ surgery (Dr. Gabriel) about using full anticoagulation. I was called to admit the patient to the hospitalist service. 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) Hx of hernia repair History of colonoscopy with polypectomy (~07/12/21) Family History Mother Hypertension Sister Hypertension Stroke Brother , 54 Hypertension Brother Hypertension Brother Hypertension Social History Smoking/Tobacco Use Status: Never Second Hand Exposure: Yes Smoking risk assessment performed?: Yes Alcohol Intake: former Drug use: Daily Substance use type: marijuana Details: smokes daily-weekly marijuana depending on his activity Adopted: No Caregiver/Support person: No Foster care: No Household members: none Housing: house Number of Children: 2 number of grandchildren: 1 Communication Needs: None Do you need help understanding health information?: Never Pets and animals: No Sexually active: No Do you think of yourself as: straight/heterosexual Current gender identity: male What is your relationship status?: How often do you talk on the phone with friends or family?: three or more times per week How often do you get together with friends or relatives?: once per week Do you belong to any clubs or organized social groups?: no Panel score (0-1 are the most socially isolated patients): 1 Stephie/Yazdanism: No preference Seatbelt use: always Helmet use: Yes Helmet use: always Drive intox or ride w/intox lead driver: No Working smoke detector in home: Yes Carbon monox detector in home: Yes Firearms in home: Yes Do you feel safe at home: Yes Do you feel safe in your relationship?: Yes Meds Allergies and Home Medications Allergies Allergy/AdvReac Type Severity Reaction Status Date / Time No Known Allergies Allergy Verified 09/03/23 10:50 Home Medications Medication Instructions Recorded Confirmed Type losartan 100 mg tablet 100 mg PO DAILY #90 tabs 02/26/23 09/03/23 Rx acetaminophen 325 mg tablet 1,000 mg (3.0769 x 325 mg) PO TID 09/01/23 09/03/23 Rx PRN Pain, Mild #50 tabs amoxicillin 875 mg-potassium 1 tab PO BID #4 tabs 09/01/23 09/03/23 Rx clavulanate 125 mg tablet cyclobenzaprine 10 mg tablet 10 mg PO TID PRN PRN Spasms #30 09/01/23 09/03/23 Rx tabs Exam Narrative Exam Narrative: Middle aged white male who is lying in bed, no acute distress, he does not appear to be tachypneic HEENT round unremarkable Neck supple nontender no JVD normal carotid pulses Lungs clear to auscultation Heart is regular rate and rhythm no murmur rub or gallop Abdomen patient has some staple clips from previous laparoscopy holes he has a couple of bandages over where he had previous drains that were removed earlier by Dr. Gabriel Lower extremities no calf swelling or tenderness, normal pedal pulses feet are cool but no cyanosis Neurologic exam grossly intact except he has some diminished sensation of the left foot to light touch particularly over the dorsum of the foot but normal sensation of the calf and leg. Results Labs 09/03/23 10:46 09/03/23 10:46 Labs: Laboratory Results - last 24 hr 09/03/23 09/03/23 10:46 11:43 WBC 8.81 RBC 4.05 L Hgb 13.5 Hct 39.6 L MCV 98 H MCH 33.3 H MCHC 34.1 RDW 12.8 Plt Count 535 H MPV 8.5 Immature Gran % 0.7 Neutrophils % 79.1 Lymphocytes % 10.9 Monocytes % 6.8 Eosinophils % 2.0 Basophils % 0.5 Nucleated RBC % 0.0 Absolute Neutrophils 6.97 H Absolute Lymphocytes 0.96 L Absolute Monocytes 0.60 Absolute Eosinophils 0.18 Absolute Basophils 0.04 PT 11.1 INR 1.1 APTT 27.6 Sodium 136 Potassium 4.0 Chloride 101 Carbon Dioxide 21.7 Anion Gap 13.3 H BUN 16 Creatinine 1.2 Est GFR (CKD-EPI 2020) 66.70 Glucose 96 Calcium 8.8 Total Bilirubin 0.6 AST 39 H ALT 63 Alkaline Phosphatase 169 H Troponin I < 50 NT-Pro-B Natriuret Pep 80 Total Protein 7.4 Albumin 2.6 L COVID-19 Source Nasopharynx SARS-CoV-2 (PCR) Negative Influenza Type A (PCR) Negative Influenza Type B (PCR) Negative RSV (PCR) Negative Last Vital Signs Temp 36.2 C L 09/03/23 16:30 Pulse 71 09/03/23 16:30 Resp 16 09/03/23 16:30 BP 126/79 09/03/23 16:30 Pulse Ox 95 09/03/23 16:30 Time Spent Time spent with Patient: 40-54 minutes Time was spent: preparing to see the patient(eg.review tests), ordering medications,tests, procedures, referring, communicating with other health career development specialist, indepentently interpreting results, counseling the patient and care coordination
[2023-09-03 16:41] LABS: C Diff PCR Negative (Negative)
[2023-09-03 19:07] LABS: PTT Activated 92.6 sec (23.6-32.8)
[2023-09-03] MEDS: Lactobacillus Acidophilus CAP 1 CAP PO (20:15)
[2023-09-03] MEDS: Psyllium PKT 1 EACH PO (22:14)
[2023-09-03] MEDS: Heparin in 0.45% NaCl 25,000 UNIT/250 ML BAG 15.5 UNIT IV (22:15)
--- NOTE | 2023-09-04 | DI.CT_ITS ---
Exam(s) CT ABD AORTA CTA W RUNOFF EXAM: CT ABD AORTA CTA W RUNOFF CLINICAL HISTORY: no pulses left foot/left foot pain/left dvt. TECHNIQUE: Imaging Protocol: Axial computed tomography images with coronal and sagittal reformatted images were created and reviewed CONTRAST MATERIAL: Intravenous: Omnipaque 350 Contrast volume:100 ml Oral: None COMPARISON: CT CT ABDOMEN PELVIS WO from 09/03/2023 FINDINGS: ABDOMEN: AORTA: There is no evidence of abdominal aortic aneurysm nor dissection. Celiac and superior mesenteric art eries patent without significant ostial stenosis. No embolus in the SMA. The inferior mesenteric ar chantal is patent. Both renal arteries are patent without significant stenosis. Aortic bifurcation is p atent without significant stenosis. Common iliac arteries are patent. No aneurysmal dilatation. No significant stenosis in these vessels nor their junctions with the external iliac arteries. Both ex ternal iliac arteries exhibit normal diameters and without significant stenosis nor aneurysmal dilata tion. Both internal iliac arteries are patent without aneurysmal dilatation. Both common femoral arteries appear unremarkable. Both SFA arteries are patent without evidence of s ignificant stenosis throughout the length these vessels, including Mak's canal. THE LEFT POPLITEAL ARTERY IS OCCLUDED. There is no aneurysm at this level. Flow is reconstituted i n the lower left tibioperoneal trunk and feeds the posterior tibial and peroneal arteries. The proxi mal few mm of the ipsilateral anterior tibial artery is occluded but flow is reconstituted thereafter in the anterior tibial artery and this descends as the dominant runoff vessel in the left calf. The re is three-vessel runoff in the left calf with the left anterior tibial artery being dominant and co ntinuous without significant stenosis into the dorsalis pedis artery. The left posterior tibial rebeka ry is a thin but patent vessel. The left peroneal artery is opacified to the distal calf level. THE RIGHT POPLITEAL ARTERY IS PATENT. There is no aneurysm at this level. There is thin three-vesse l runoff in the right calf continuous into the foot. OTHER: There are intraluminal filling defects within left lower lobe pulmonary arteries consistent wi th the previously documented pulmonary emboli. Pleural based infiltrate in the left lower lobe again noted which may be area of pulmonary infarction or infectious. When compared to CT scan of 09/03/19 24, the percutaneous surgical drain is been removed. Left-sided jejunal anastomosis is again noted w ith abscess again noted below this level, unchanged from yesterday. There is surrounding streaking b ut the size of the collection-probable abscess in left side of the abdomen is approximately 2.8 x 2.2 cm by 3 cm cephalocaudal. There is no evidence of bowel obstruction nor free air. No generalized a scites. LIVER: Benign cysts in the liver again noted measuring 1.4 by 1.2 cm. No new additional focal findin gs in the liver nor dilated intrahepatic ducts. GALLBLADDER/BILIARY: No obvious gallbladder pathology. CBD is not dilated. PANCREAS: No evidence of pancreatic mass nor dilatation of the pancreatic duct. SPLEEN: Spleen is not enlarged. There are no intrasplenic lesions. Splenic and portal veins are olson nt. ADRENALS: There are no significant adrenal masses. KIDNEYS: No cysts evident. No calculi nor hydronephrosis. No solid renal masses. ABDOMINAL AORTA: The abdominal aorta is not enlarged. LYMPH NODES: There is no retroperitoneal nor para-aortic adenopathy. No obvious mesenteric masses. ABDOMINAL WALL: No evidence of significant anterior abdominal wall hernia. PELVIS: LYMPH NODES: There is no intrapelvic nor inguinal adenopathy. GI: No evidence of appendicitis.There is extensive sigmoid diverticulosis but no evidence of obvious acute sigmoid diverticulitis. URINARY BLADDER: No calculi nor masses evident REPRODUCTIVE: Prostate size normal. Seminal vesicles unremarkable. OSSEOUS: Right hip prosthesis. No fractures. No significant osseous lesions. IMPRESSION: 1. Main vascular finding here is occlusion of the left popliteal artery behind the superior aspect of the femoral condyles, without evidence of popliteal artery aneurysm at this level. Flow is reconsti tuted in the left calf runoff vessels approximately 10 cm below this level within the tibioperoneal t runk which gives flow to the ipsilateral posterior tibial and peroneal arteries. The origin of the l eft anterior tibial artery is occluded but the left anterior tibial artery descends as the dominant l eft calf vessel just below this level and continues into the dorsalis pedis vessel. 2. No evidence of abdominal aortic aneurysm nor prominent atherosclerotic disease in the abdominal ao rta, aortic bifurcation nor within the iliac arteries. Also no evidence of significant stenosis in t he common femoral and SFA arteries. 3. Left lower lobe pulmonary embolus incidentally noted, previously documented. 4. Left small bowel anastomosis. There is a nearby abscess again noted which was documented on yeste rday's abdominal CT scan. Record called by myself to the hospitalist 09/04/2023 2 p.m. RADIATION DOSE DELIVERED: Total DLP DATA REPOSITORY: All CT scans at this facility are submitted to the National Radiology Data Registry (NRDR) Dose Index Registry (DIR) with the [employer] (ACR). RADIATION OPTIMIZATION: All CT scans at this facility use at least one of these dose optimization te chniques: automated exposure control; mA and/or kV adjustment per patient size (includes targeted exa ms where dose is matched to clinical indication); or iterative reconstruction.
[2023-09-04 00:17] VITALS: BP 103/70; PULSE 69; RESP 16; TEMP 37; O2SAT 91
[2023-09-04 01:21] LABS: PTT Activated 76.9 sec (23.6-32.8)
[2023-09-04 03:08] VITALS: BP 104/68; PULSE 60; RESP 16; TEMP 36.6; O2SAT 93
[2023-09-04 07:04] LABS: Abs Immature Grans 0.04 10^3/uL (0.0-0.06); Absolute Basophil Count 0.08 10^3/uL (0.0-0.2); Absolute Eosinophil Count 0.25 10^3/uL (0.0-0.7); Absolute Lymphocyte Count 1.61 10^3/uL (1.2-3.4); Absolute Monocyte Count 0.56 10^3/uL (0.1-0.8); Absolute Neutrophil Count 4.25 10^3/uL (1.2-6.7); Basophils % 1.2; Eosinophils % 3.7; HCT 38.4 % (40.0-50.0); HGB 12.8 g/dL (13.5-17.5); Immature Grans % 0.6; Lymphocytes % 23.7; MCH 32.7 pg (27.0-33.0); MCHC 33.3 % (32.0-36.0); MCV 98 fL (80-95); MPV 8.6 fL (8.0-11.0); Monocytes % 8.2; Neutrophils % 62.6; Platelet Count 480 10^3/uL (130-400); RBC 3.92 10^6/uL (4.36-5.78); RDW 12.7 % (11.8-14.1); RDW-SD 45.5 fL; WBC 6.79 10^3/uL (4.4-10.8)
[2023-09-04 07:18] LABS: PTT Activated 76.2 sec (23.6-32.8)
[2023-09-04] MEDS: Psyllium PKT 1 EACH PO (07:43)
[2023-09-04] MEDS: Lactobacillus Acidophilus CAP 1 CAP PO (07:43)
[2023-09-04 08:03] VITALS: BP 121/81; PULSE 61; RESP 16; TEMP 36.3; O2SAT 92
[2023-09-04] MEDS: Apixaban 5 MG TAB 10 MG PO (09:12)
[2023-09-04 11:55] VITALS: BP 122/76; PULSE 61; RESP 16; TEMP 36.8; O2SAT 98
--- NOTE | 2023-09-04 12:36 | TELEFU_ITS ---
Date of service: 09/04/23 Time of Service: 09:00 Nutrition Note NOTE: Pt readmitted after discharge on 08/31. Jann was first admitted with diverticulitis with perforation of the jejunum and underwent surgical resection on 08/26 involving almost 2 feet of jejunum removed. Was as home developed symptoms that brought him back and found to have PE which he is now being treated for - started apixaban today. Jann reported low intake/appetite for days leading up to his surgery on 08/26 and continued after discharge. Besides water, the Jann reports eating nothing over the last week. He did report a BM this morning that was the most formed he has had in nearly 3 weeks. Due to his continued weight loss - 5.4kg from 08/26 to 09/02 (which is 5.3% loss of bodyweight), I paid another visit today and performed partial nutrition focused physical exam on upper body with findings of mild to moderate loss of body fat and muscle evidenced in the following areas: -orbital region and buccal area with somewhat hollow appearance and decreased bounce back of orbital fat pads and slight sunken/flat appearance and decreased bounce back -temporal region - slight depression with decreased muscle tone and resistance on palpation -clavicular region - decreased muscle tone with some protrusion Offered pt ONS for added kcals/protein during the remainder of his admission - he declined. I emphasized the need to start to increase his oral intake to support his needs and suggested taking a MVI to support nutrition needs as well as to make up for any initial malabsorption losses due to resection surgery while intestinal function of the ileum adapts and compensates. I offered education on slowly increasing his fiber intake over the next few weeks based on toleration and symptoms present. Also provided education on blood thinners and avoiding excessive amounts of fish oil, garlic, ginko, ginseng, vitamin E. Pt ordered for psyllium and probiotics and recommend these continue post discharge. Nutrition diagnoses: Severe Malnutrition related to inadequate protein-energy in take in the setting of acute illness/injury (s/p small bowel resection) as evidenced by pt diet history resulting in meeting <50% of estimated energy requirements for >5 days, a 5.3% wt loss over the last week, and mild to moderate muscle wasting (temporal and clavicular region) and mild to moderate subcutaneous fat loss (orbital and buccal fat pads). Will monitor and follow to offer ONS supplements, education and more aggressive nutrition intervention as patient allows. Time Spent in Nutritional Counseling and Treatment: 30 minutes
--- NOTE | 2023-09-04 12:45 | W.PM.DS.N ---
Date of service: 09/04/23 Time of Service: 12:45 DS: Diagnosis Discharge Diagnosis (1) Pulmonary embolism: Status: Chronic Asessment and Plan: Jann Downs is a 67-year-old gentleman who had a recent laparoscopic surgery and resection of small bowel diverticulitis that had perforated. He has been appropriately prophylaxed with enoxaparin perioperatively but despite that presented to the emergency department with acute onset of left calf pain and swelling with numbness in his left foot and workup in the emergency department included CT scan of his chest abdomen pelvis. . Chest x-ray showed no acute abnormalities CTA of the chest showed filling defects in branches of the pulmonary artery to left lower lobe consistent with pulmonary emboli. He also was found to have peripheral infiltrate left lower lobe procurement representative of atelectasis versus pneumonia versus infarct. There was suggestion of right heart strain with RV to LV ratio greater than 1. However subsequent echocardiogram was performed and showed normal left ventricular wall thickness and chamber size with normal wall motion and normal RV size and RV function with no evidence of right ventricular strain. RVSP was 21 mm. Screening troponin and proBNP were normal. Patient was started systemic unfractionated heparin was kept on that overnight and then switched to apixaban 10 mg twice daily x 1 week and then he will decrease to 5 mg twice a day. Dr. Gabriel was consulted for postoperative management of his recent abdominal surgery. CT of the abdomen pelvis showed 2.2 x 2.6 x 3.1 cm fluid collection left anterior abdominal which the radiologist suggest an abscess. Dr. Gabriel extremity that there was no abscess. She pulled his drains and plans to follow-up with him as an outpatient regarding his wound care. The next morning after admission patient was feeling fine not running any fevers not short of breath and not hypoxemic and he said his left leg actually felt better with improvement in the feeling in his left foot. Patient's been instructed to continue the apixaban 10 mg twice daily for another week and then decrease to 5 mg twice daily. Because of his family history of multiple family members with blood clots we did send off hypercoagulability studies including anticardiolipin antibodies, JOSHUA, protein S and protein C activity levels as well as prothrombin gene [id number] mutation factor and Leyden factor V mutation factor. It is recommended the patient not only follow-up with his primary care provider but his PCP should refer him to a quality assurance supervisor to discuss whether or not this patient needs long-term anticoagulation but for now he should be on anticoagulation for at least 3 to 6 months. (2) Perforated diverticulum of jejunum: Status: Acute Asessment and Plan: Follow-up wound care per Dr. Gabriel. (3) Antibiotic-associated diarrhea: Status: Acute Asessment and Plan: Stool was checked for C. difficile and found to be negative. Patient should follow-up with Dr. Gabriel and he should take probiotics along with Metamucil twice a day. Discharge Plan Disposition Patient Disposition: Home Condition: Improving Discharge Details Reason For Visit: pulmonary embolism Admit Date/Time: 09/03/23 11:24 Admit Provider: Hung Wong Attending Provider: Hung Wong Primary Care Provider: Jean Carlos David Home Meds and New Rx's Prescriptions: New Eliquis DVT-PE Treat 30D Start 5 mg (74 tabs) tablets,dose pack See Rx Instructions .ROUTE .COMPLEX Qty: 74 0RF Rx Instructions: orally per package directions Continued losartan 100 mg tablet 100 mg PO DAILY Qty: 90 3RF cyclobenzaprine 10 mg Tablet 10 mg PO TID PRN PRN (Reason: Spasms) Qty: 30 1RF acetaminophen 325 mg Tablet 1,000 mg PO TID PRN (Reason: Pain, Mild) Qty: 50 0RF amoxicillin-pot clavulanate 875-125 mg Tablet 1 tab PO BID Qty: 4 0RF Discharge Instructions Instructions: Apixaban (By mouth), Pulmonary Embolism (DC) Additional Instructions: You were evaluated for left leg swelling and pain and dyspnea. Although no venous ultrasound was done of your left leg, you underwent CT angiogram of your chest and were found to have a pulmonary embolism in your the arteries feeding the lower lobe of your left lung. An echocardiogram was done to evaluate any impact the blood clots had on your heart and there was no evidence of any heart strain. You indicated that you have a family history of multiple members who have had blood clots. We sent off lab work to evaluate you for any inheritable clotting disorder (such as Leiden Factor V mutation, protein C and protein S and prothrombin [id number] mutation factor. These will take time to come back and your primary care provider will go over them with you. He should refer you to a quality assurance supervisor to discuss whether or not you may need lifetime use of blood thinners. For now you need to remain on Apixaban (Eliquis) for 3 months to 6 months. You had what we would consider a provoked pulmonary embolus associated w/ recent surgery even though you were appropriately placed on prophylactic doses of lovenox perioperatively. If you do not carry any abnormalities for hypercoagulable states then you may be able to come off anticoagulation but this should be decided by your PCP in conjunction w/ a quality assurance supervisor. Stand Alone Forms: Nursing Discharge Form Referrals: Jean Carlos David NP [Primary Care Provider] - 09/17/23 11:00 am Juliana Gabriel DO [OSTEOPATHIC DOCTOR] - 09/07/23 10:30 am Activity:: Activity as Tolerated Equipment/Supplies:: No Equipment Needed Diet:: Normal Diet Discharge Orders Discharge Orders: Discharge Order (Routine); Ordered 09/04/23 Ordered By: Hung Wong DS: Summary Time Spent with Patient providing and/or coordinating discharge services: Greater than 30 minutes Status at Discharge Functional status at discharge: independent ambulation Overall status at discharge: patient is back to baseline Mental Status: mental status grossly normal Speech and Movement: speech and movement normal Mood: congruent mood Affect: normal affect Quality:SDOH Health Related Social Needs: No Data to Display Exam Narrative Exam Narrative: Jann is sitting up in bed he is alert and orient x 3 no acute distress denies any shortness of breath or chest pain. Lungs are clear to auscultation Heart is regular rate and rhythm Left leg has no edema no calf tenderness no thigh tenderness he has good sensation of the left foot and normal pulses in the left foot Psych Mental Status: mental status grossly normal Speech and Movement: speech and movement normal Mood: congruent mood Affect: normal affect DS: Data Vitals/I&O Vitals and I&O: Vital Signs Temperature 36.8 C 09/04/23 11:55 Temperature Source Tympanic 09/04/23 11:55 Pulse 61 09/04/23 11:55 Pulse Rhythm Regular 09/04/23 07:30 Pulse 69 09/03/23 12:12 Respiratory Rate 16 09/04/23 11:55 Respiratory Effort Normal, Non-Labored 09/04/23 07:30 Respiratory Depth Normal 09/04/23 07:30 Respiratory Pattern Normal 09/04/23 07:30 Blood Pressure 122/76 09/04/23 11:55 Blood Pressure Mean 97 09/03/23 12:11 Blood Pressure Position Sitting 09/03/23 09:16 Pulse Oximetry 98 09/04/23 11:55 Oxygen Delivery Method Room Air 09/04/23 11:55 Oxygen Flow Rate 0 09/04/23 11:55 Pain Level 0 09/04/23 11:55 Comment RN Notified 09/04/23 00:17 Intake & Output 09/03/23 09/04/23 09/04/23 23:59 11:59 23:59 Intake Total 175.934 / 185.934 159.392 / 159.392 Output Total 475 / 475 450 / 450 Balance -299.066 / -289.066 -290.608 / -290.608 Weight 96.615 kg Intake: IV 175.934 / 185.934 159.392 / 159.392 Output: Urine 475 / 475 450 / 450 Other: Urine Color Light Thalia Light Thalia Urine Appearance Clear Sediment Urine Odor Normal Normal Stool Size Moderate Stool Characteristics Liquid Brown Voiding Methods Urinal Urinal Data Completed and Pending Labs on day of discharge: Labs from last 24 hours 09/04/23 09/04/23 09/03/23 06:37 00:55 18:25 WBC 6.79 RBC 3.92 L Hgb 12.8 L Hct 38.4 L MCV 98 H MCH 32.7 MCHC 33.3 RDW 12.7 Plt Count 480 H MPV 8.6 Immature Gran % 0.6 Neutrophils % 62.6 Lymphocytes % 23.7 Monocytes % 8.2 Eosinophils % 3.7 Basophils % 1.2 Nucleated RBC % 0.0 Absolute Neutrophils 4.25 Absolute Lymphocytes 1.61 Absolute Monocytes 0.56 Absolute Eosinophils 0.25 Absolute Basophils 0.08 APTT 76.2 H 76.9 H 92.6 H* Functional Protein C Pending Functional Protein S Pending Func Antithrombin III Pending Antithrombin III Activ Pending Factor V Leiden Mutat Pending Factor V Leiden Interp Pending Factor V Leiden Rev By Pending Stl C.difficile Tox PCR JOSHUA Titer Pending JOSHUA Titer 2 Pending JOSHUA Titer 3 Pending JOSHUA Interpretation Pending Phospholipid IgG Ab Pending Phospholipid IgM Ab Pending Prothrombin [id number] Mut Pending Prothrombin Mut Interp Pending Prothrombin Gene Reviewed By: Pending 09/03/23 15:37 WBC RBC Hgb Hct MCV MCH MCHC RDW Plt Count MPV Immature Gran % Neutrophils % Lymphocytes % Monocytes % Eosinophils % Basophils % Nucleated RBC % Absolute Neutrophils Absolute Lymphocytes Absolute Monocytes Absolute Eosinophils Absolute Basophils APTT Functional Protein C Functional Protein S Func Antithrombin III Antithrombin III Activ Factor V Leiden Mutat Factor V Leiden Interp Factor V Leiden Rev By Stl C.difficile Tox PCR Negative JOSHUA Titer JOSHUA Titer 2 JOSHUA Titer 3 JOSHUA Interpretation Phospholipid IgG Ab Phospholipid IgM Ab Prothrombin [id number] Mut Prothrombin Mut Interp Prothrombin Gene Reviewed By: [facility] All Active Problems Pulmonary embolism (Chronic) Perforated diverticulum of jejunum (Acute) Antibiotic-associated diarrhea (Acute) Skin lesion (Acute) Headache (Acute) Hyperlipidemia (Acute) Joint pain (Acute) Marijuana smoker (Acute) Hypertension (Chronic) Actinic keratosis (Acute) Tubular adenoma (Acute) Medical History Diverticulitis, jejunum Small bowel perforation Persistent fatigue after COVID-19 COVID-19 Bradycardia Surgical History S/P laparotomy 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) Hx of hernia repair History of colonoscopy with polypectomy (~07/12/21) Family History Mother Hypertension Sister Hypertension Stroke Brother , 54 Hypertension Brother Hypertension Brother Hypertension Social History Smoking/Tobacco Use Status: Never Second Hand Exposure: Yes Smoking risk assessment performed?: Yes Alcohol Intake: former Drug use: Daily Substance use type: marijuana Details: smokes daily-weekly marijuana depending on his activity Adopted: No Caregiver/Support person: No Foster care: No Household members: none Housing: house Number of Children: 2 number of grandchildren: 1 Communication Needs: None Do you need help understanding health information?: Never Pets and animals: No Sexually active: No Do you think of yourself as: straight/heterosexual Current gender identity: male What is your relationship status?: How often do you talk on the phone with friends or family?: three or more times per week How often do you get together with friends or relatives?: once per week Do you belong to any clubs or organized social groups?: no Panel score (0-1 are the most socially isolated patients): 1 Stephie/Episcopalian: No preference Seatbelt use: always Helmet use: Yes Helmet use: always Drive intox or ride w/intox driver/guide: No Working smoke detector in home: Yes Carbon monox detector in home: Yes Firearms in home: Yes Do you feel safe at home: Yes Do you feel safe in your relationship?: Yes Time Spent with Patient Time Spent with Patient: <45 minutes Time was spent: preparing to see the patient(eg.review tests), ordering medications,tests, procedures, referring, communicating with other health progressive care manager, indepentently interpreting results, counseling the patient and care coordination
[2023-09-04] MEDS: Omnipaque 350 MG/ML 100 ML BTL IJ (13:11)
[2023-09-04] MEDS: Omnipaque 350 MG/ML 50 ML BTL IJ (13:12)
[2023-09-04] MEDS: Normal Saline - Diluent 50 ML VIAL IJ ×2 (13:13→13:14)
[2023-09-04] MEDS: Heparin in 0.45% NaCl 25,000 UNIT/250 ML BAG 17.5 UNIT IV (14:45)
[2023-09-04] MEDS: Aspirin 81 MG CHEW CH (15:01)
--- NOTE | 2023-09-04 15:22 | PDOC.CMIN ---
Date of service: 09/04/23 Time of Service: 15:22 Care Management Initial Assmt Initial Assessment REASON FOR HOSPITALIZATION:: Pulmonary Embolism PREVIOUS FUNCTIONAL STATUS/SOCIAL/FAMILY SUPPORTS:: Jann lives in [place], alone, off grid. He stated that he also owns property in [place] near [facility], and his mailing address is in [place]. Jann stated that he was raised on the [facility], and moved to the [facility] to be closer to his son and grand daughter who live in [place]. He has another son who lives on the [facility] still. Both of his sons enjoy skiing and mountain biking, as he also once did, but he reported that he is retired from those things now. 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 He is very independent and self sufficient at his off grid home in [place]. He stated that although his son is close by, he is not available to help support Jann. CURRENT FUNCTIONAL STATUS:: Jann was lying in bed when CM met with him. His son and grand daughter were in the room, visiting. stated that he would return home with a new prescription for Eliquis. MURRAY called the pharmacy, who stated that his copay will be around $296/mo. CM faxed a coupon for Eliquis to the pharmacy which will cover the first month of Eliquis. He had a surgical consult, and after meeting, the Dr. Gabriel ordered a CT as Lei reported that his left foot is cold and numb, and reported that she could not find a pulse in the foot. After MD reviewed the results of the CT, MD requested transfer for emergent vascular intervention. [facility] accepted him, and he was transferred via EMS, coordinated by RN supervisor post wave. CM will continue to follow. ADVANCE DIRECTIVES:: Not on file at [facility] Has patient been provided with info about the portal/API?: Yes Did the patient sign up for the portal?: No CODE STATUS:: Full Code INSURANCE COVERAGE / FINANCIAL ISSUES:: MVP MCR replacement CURRENT HOME/COMMUNITY SERVICES/EQUIPMENT:: None PRIMARY CARE PHYSICIAN:: Jean Carlos David POTENTIAL DISCHARGE NEEDS:: Evaluations for further needs, follow up appointments. PATIENT/FAMILY EDUCATION NEEDS:: Review discharge instructions and limitations, discussion of self care needs including ask me three. ANTICIPATED BARRIERS TO DISCHARGE:: None TRANSPORTATION:: Jann has his vehicle in the parking lot of [facility], but was emergently transferred to [facility] today by EMS. CM contacted [facility] security, who confirmed that his car is there, and will remain there until he is able to make arrangements to pick it up. PLAN:: Jann was emergently transferred to [facility] today for vascular intervention. He transferred via EMS, coordinated by RN supervisor post wave. He will follow up with his PCP and surgical services after discharge from the tertiary facility. CM will continue to follow. [facility] All Active Problems (Updated 09/04/23 @ 15:44 by Juliana Gabriel DO) Popliteal artery occlusion, left (Acute) Pulmonary embolism (Chronic) Perforated diverticulum of jejunum (Acute) Antibiotic-associated diarrhea (Acute) Skin lesion (Acute) Headache (Acute) Hyperlipidemia (Acute) Joint pain (Acute) Marijuana smoker (Acute) Hypertension (Chronic) Actinic keratosis (Acute) Tubular adenoma (Acute) Medical History Diverticulitis, jejunum Small bowel perforation Persistent fatigue after COVID-19 COVID-19 Bradycardia Surgical History S/P laparotomy 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) Hx of hernia repair History of colonoscopy with polypectomy (~07/12/21) Family History Mother Hypertension Sister Hypertension Stroke Brother , 54 Hypertension Brother Hypertension Brother Hypertension Social History Smoking/Tobacco Use Status: Never Second Hand Exposure: Yes Smoking risk assessment performed?: Yes Alcohol Intake: former Drug use: Daily Substance use type: marijuana Details: smokes daily-weekly marijuana depending on his activity Adopted: No Caregiver/Support person: No Foster care: No Household members: none Housing: house Number of Children: 2 number of grandchildren: 1 Communication Needs: None Do you need help understanding health information?: Never Pets and animals: No Sexually active: No Do you think of yourself as: straight/heterosexual Current gender identity: male What is your relationship status?: How often do you talk on the phone with friends or family?: three or more times per week How often do you get together with friends or relatives?: once per week Do you belong to any clubs or organized social groups?: no Panel score (0-1 are the most socially isolated patients): 1 Stephie/Baptism: No preference Seatbelt use: always Helmet use: Yes Helmet use: always Drive intox or ride w/intox cement truck driver: No Working smoke detector in home: Yes Carbon monox detector in home: Yes Firearms in home: Yes Do you feel safe at home: Yes Do you feel safe in your relationship?: Yes Readmission Within the Past 30 Days Yes or No: Yes Date of First Admission Date of 1st Admission: 08/27/23 Date of this Admission Date of Admission: 09/03/23 This admission was: Through ED Office Visit Since 1st Admission Have you seen your PCP in the office since discharge?: No Speicalist Appointments Have you seen any other specialist since your 1st Admission?: No I. Interview patient and/or Family Difficulty reaching your doctor or getting an office appt?: No Have you had trouble purchasing/ or taking medication?: No How do you take your medications and set up your pills?: independently Have you had trouble with getting meals at home?: No Did you feel ready for discharge when you left the last time: Yes Reason there were no orders at discharge: Pt declined services Did you call your physician beore you came to the ED?: No How do you think you became sick enough to come back?: Jann had pain in his leg, which brought him to the ED. ED visits How many ED visits in the past 12 months: 1 Assessment for Readmission Summary of readmission circumstances, based upon interviews: Jann stated that he felt ready for discharge on his previous admission. had arranged for him to go to the surgical office for daily dressing changes, so he had been seen at the office, but only for a brief dressing change. The following day, he stated that he had pain in his leg/foot, which was new, therefore he went to the ED to have it evaluated. He was found to have a PE, and was admitted. He was going to return home today, but he reported that his foot was now feeling cold and numb. A CT was obtained which found a blockage, and he was emergently transferred to [facility] via EMS. SDOH(Care Management) Screening Will the Patient Participate in the Screening?: Unable to obtain
[2023-09-04 15:26] VITALS: BP 115/90; PULSE 68; RESP 18; TEMP 36.8; O2SAT 94
--- NOTE | 2023-09-04 15:41 | W.PM.PROGNOT ---
Date of Service Date of service: 09/04/23 Time of Service: 15:41 Assessment and Plan Assessment and plan (1) Marijuana smoker: Status: Acute Assessment and plan: dialy (2) Hypertension: Status: Chronic Qualifiers: Hypertension type: primary hypertension Qualified Code(s): I10 - Essential (primary) hypertension (3) Hyperlipidemia: Status: Acute Qualifiers: Hyperlipidemia type: mixed hyperlipidemia Qualified Code(s): E78.2 - Mixed hyperlipidemia (4) Pulmonary embolism: Status: Chronic Assessment and plan: on abixiban Qualifiers: Pulmonary embolism type: multiple subsegmental (without acute cor pulmonale) Qualified Code(s): I26.94 - Multiple subsegmental pulmonary emboli without acute cor pulmonale (5) Antibiotic-associated diarrhea: Status: Acute Assessment and plan: c diff neg. (6) Perforated diverticulum of jejunum: Status: Acute Assessment and plan: wound left open - daily packing changes. no abx good granulation tissue (7) Popliteal artery occlusion, left: Status: Acute Assessment and plan: CT andio obtained- [facility] heparin drip this is prob chronic however, vascular consult pd This document was created with voice activated software and may contain errors. 30 mins spent with the patient today. Subjective Subjective Interval history since last seen: no headaches. No CP or SOB. no productive cough. no dysuria. pt is tolerating po's. no fevers. still having diarrhea. Pain well controlled. today pt c/o numbness/tingling in Left foot. The foot is slightly cooler than the right. no severe pain. It is warm and pink. He does not have a PT/DP by palpation or doppler. Pt was admitted w/ DVT w/ left LE and is on apixiban. He has palpable DT/PT on Right. pt has no hx of prior dvt. he is non smoker. he has not had [place]/CVA. pt notes parents/sibs have hx of DVT patient has never had a DVT in the past Exam GI Other: Incisions are clean dry and intact. The vertical midline incision is open in the middle for about 2 x 1 x 1 cm. This is good beefy red granulation tissue. She has good bowel sounds. Dressing is changed. Lung are clear bilaterally ext- see hpi Objective Last Vital Signs Temp 36.8 C 09/04/23 15:26 Pulse 68 09/04/23 15:26 Resp 18 09/04/23 15:26 BP 115/90 09/04/23 15:26 Pulse Ox 94 09/04/23 15:26 Laboratory Results - last 24 hr 09/03/23 09/03/23 09/04/23 15:37 18:25 00:55 WBC RBC Hgb Hct MCV MCH MCHC RDW Plt Count MPV Immature Gran % Neutrophils % Lymphocytes % Monocytes % Eosinophils % Basophils % Nucleated RBC % Absolute Neutrophils Absolute Lymphocytes Absolute Monocytes Absolute Eosinophils Absolute Basophils APTT 92.6 H* 76.9 H Stl C.difficile Tox PCR Negative 09/04/23 06:37 WBC 6.79 RBC 3.92 L Hgb 12.8 L Hct 38.4 L MCV 98 H MCH 32.7 MCHC 33.3 RDW 12.7 Plt Count 480 H MPV 8.6 Immature Gran % 0.6 Neutrophils % 62.6 Lymphocytes % 23.7 Monocytes % 8.2 Eosinophils % 3.7 Basophils % 1.2 Nucleated RBC % 0.0 Absolute Neutrophils 4.25 Absolute Lymphocytes 1.61 Absolute Monocytes 0.56 Absolute Eosinophils 0.25 Absolute Basophils 0.08 APTT 76.2 H Stl C.difficile Tox PCR Time Spent with Patient Time Spent with Patient: 35-49 minutes Time was spent: preparing to see the patient(eg.review tests), obtaining and/or reviewing separately otained hiistory, ordering medications,tests, procedures, referring, communicating with other health critical care physician assistant, indepentently interpreting results and care coordination
[2023-09-07 12:44] LABS: Antithrombin 3, Funct. 74 % (85-125)
[2023-09-07 13:36] LABS: ANA Interpretation Negative (Negative)
[2023-09-07 14:04] LABS: Antithrombin Activity, Plasma 74 % (80 - 130)
[2023-09-07 22:09] LABS: Phospholipid Ab, IgG <9.4 GPL; Phospholipid Ab, IgM <9.4 MPL
[2023-09-08 09:11] LABS: Factor V Leiden(R506Q) Mut Negative (Negative); Prothrombin G20210A Mutation Negative (Negative)
[2023-09-09 11:50] LABS: Protein C, Functional 120 % (71-199); Protein S, Functional >150 % (73-156)
== END 2023-09-04 15:44 | disposition short-term general hospital (02) | DRG 176 ==
LOC: ER 12:14 → MS 12:17
PROVIDERS: Surgery; Admitting Provider Internal Medicine; Emergency Provider Emergency Medicine; PCP Nurse Practitioner Family; Visit Provider Internal Medicine
DX: I26.94 Multiple subsegmental thrombotic pulmonary emboli without acute cor pulmonale (principal); K52.1 Toxic gastroenteritis and colitis; I10 Essential (primary) hypertension; E78.5 Hyperlipidemia, unspecified; F12.90 Cannabis use, unspecified, uncomplicated; R53.83 Other fatigue; Z96.641 Presence of right artificial hip joint; T36.8X5A Adverse effect of other systemic antibiotics, initial encounter; I77.1 Stricture of artery; Z98.0 Intestinal bypass and anastomosis status
CPT/HCPCS: 00123; 36415; 71275; 75635; 80053; 81240; 81241; 85300; 85306; 86147; 87493; 87637; 93005; 93306; 96365; 99291; 74176; 83880; 84484; 85025; 85303; 85610; 85730; 86038; 93010; 99222; 99238; J1644; J3490; Q9967

== ENCOUNTER → 2023-09-10 09:24 | Outpatient (BNVA) | payer MEDICARE, SELFPAY | PROVIDERS: PCP Nurse Practitioner Family; Referring Provider Nurse Practitioner Family; Visit Provider Physical Therapy Assistant | DX: Z48.815 Encounter for surgical aftercare following surgery on the digestive system (principal) ==

== ENCOUNTER → 2023-09-17 08:09 | Outpatient (BNVA) | payer MEDICARE, SELFPAY | PROVIDERS: PCP Nurse Practitioner Family; Referring Provider Nurse Practitioner Family; Visit Provider Physical Therapy Assistant | DX: Z48.815 Encounter for surgical aftercare following surgery on the digestive system (principal) ==

== ENCOUNTER → 2023-10-08 07:40 | Outpatient (BNVA) | payer MEDICARE, SELFPAY | PROVIDERS: PCP Nurse Practitioner Family; Referring Provider Nurse Practitioner Family; Visit Provider Physical Therapy Assistant | DX: Z48.815 Encounter for surgical aftercare following surgery on the digestive system (principal) ==

== ENCOUNTER 2024-05-10 11:58 | Outpatient (CLI) | payer MEDICARE, SELFPAY ==
--- NOTE | 2024-05-10 11:15 | DI.RAD_ITS ---
Exam(s) XR SHOULDER RT COMPLETE 2+V EXAM: XR SHOULDER RT COMPLETE 2+V CLINICAL HISTORY: Rt neck pain after heavy lifting, M54.2. TECHNIQUE: 2D digital imaging was performed of the right shoulder. Five images were obtained. AP, Grashey, Y-view and axillary views were obtained. COMPARISON: No exams were available for comparison FINDINGS: BONES: No acute fracture is present. No bony destructive lesion is seen. JOINTS: No dislocation present. Moderate degenerative changes are seen at the acromioclavicular joint . The glenohumeral joint is well maintained. SOFT TISSUE: Normal. IMPRESSION: No acute fracture or dislocation. DATA REPOSITORY: RADIATION DOSE DELIVERED:
--- NOTE | 2024-05-10 11:15 | DI.RAD_ITS ---
Exam(s) XR CERVICAL SPINE COMP 4-5V EXAM: XR CERVICAL SPINE COMP 4-5V CLINICAL HISTORY: Increased rt shoulder pain after heavy lifting, M25.511. TECHNIQUE: 2D digital imaging was performed. Five images were obtained. AP, odontoid, lateral and bi lateral oblique images were obtained. COMPARISON: No exams were available for comparison FINDINGS: The odontoid is intact. The lateral masses are well aligned. There is normal alignment of the cervi keshawn spine. There is disc space narrowing seen at C5-6 and C6-C7. There are endplate osteophytes seen from C4-5 through C6-C7. Degenerative changes of the facets are present at multiple levels of the c ervical spine. No acute fracture or subluxation is present. Moderate neural foraminal narrowing is s een on the left at C5-6 and C6-C7. There is moderate narrowing on the right at C3-C4 and mild narrow ing at C5-C6 and C6-C7 the cervical thoracic junction is well maintained. The prevertebral soft tiss ues are unremarkable. Lung apices are clear. IMPRESSION: 1. No acute fracture or subluxation. 2. Moderate cervical spondylosis. DATA REPOSITORY: RADIATION DOSE DELIVERED:
== END 2024-05-10 12:18 ==
PROVIDERS: PCP Nurse Practitioner Family; Visit Provider Nurse Practitioner Family
DX: M54.2 Cervicalgia (principal); M25.511 Pain in right shoulder
CPT/HCPCS: 72050; 73030

== ENCOUNTER 2024-08-29 10:20 | Outpatient (CLI) | payer MEDICARE, SELFPAY ==
[2024-08-29 12:16] LABS: Abs Immature Grans 0.02 10^3/uL (0.0-0.06); Absolute Basophil Count 0.05 10^3/uL (0.0-0.2); Absolute Eosinophil Count 0.35 10^3/uL (0.0-0.7); Absolute Monocyte Count 0.49 10^3/uL (0.1-0.8); Absolute Neutrophil Count 3.27 10^3/uL (1.2-6.7); Basophils % 0.8 %; Eosinophils % 5.8 %; HCT 45.2 % (40.0-50.0); HGB 15.4 g/dL (13.5-17.5); Immature Grans % 0.3 %; Lymphocytes % 31.3 %; MCH 34.2 pg (27.0-33.0); MCHC 34.1 % (32.0-36.0); MCV 100 fL (80-95); MPV 9.2 fL (8.0-11.0); Monocytes % 8.1 %; Neutrophils % 53.7 %; Platelet Count 232 10^3/uL (130-400); RDW 12.9 % (11.8-14.1); RDW-SD 48.5 fL; WBC 6.08 10^3/uL (4.4-10.8)
[2024-08-29 12:34] LABS: ALT 27 U/L (16-63); AST 20 U/L (15-37); Albumin 3.7 g/dL (3.4-5.0); Alkaline Phosphatase 86 U/L (46-116); Anion Gap 9.5 mmol/L (3-11); BUN 13 mg/dL (7-18); Bilirubin, Total 0.3 mg/dL (0.2-1.0); CO2 25.5 mmol/L (21.0-32.0); CREATININE 0.9 mg/dL (0.70-1.30); Calcium 8.9 mg/dL (8.5-10.1); Chloride 107 mmol/L (98-107); Estimated GFR 93.61 (mL/min/1.73m2); Glucose 89 mg/dL (74-106); Potassium 4.1 mmol/L (3.5-5.1); Sodium 142 mmol/L (136-145); Total Protein 6.9 g/dL (6.4-8.2)
[2024-08-29 19:01] LABS: PSA, Screening 0.6 ng/mL (<=4.5)
== END 2024-08-29 10:21 | disposition home or self-care (01) ==
LOC: LOS 10:20
PROVIDERS: PCP Nurse Practitioner Family; Referring Provider Nurse Practitioner Family; Visit Provider Nurse Practitioner Family
DX: R10.9 Unspecified abdominal pain (principal); Z12.5 Encounter for screening for malignant neoplasm of prostate
CPT/HCPCS: 36415; 80053; 84153; 85025

== ENCOUNTER 2024-08-29 12:45 | Outpatient (CLI) | payer MEDICARE, SELFPAY ==
[2024-08-29] MEDS: Breeza Beverage 473 ML BTL PO ×2 (13:28→13:30)
[2024-08-29] MEDS: Omnipaque 350 MG/ML 50 ML BTL PO (13:32)
[2024-08-29] MEDS: Normal Saline - Diluent 50 ML VIAL IJ (15:33)
[2024-08-29] MEDS: Omnipaque 350 MG/ML 100 ML BTL IJ (15:43)
--- NOTE | 2024-08-29 15:51 | DI.CT_ITS ---
Exam(s) CT ABDOMEN PELVIS W EXAM: CT ABDOMEN PELVIS W CLINICAL HISTORY: worsening ABD pain, hx of perforation,R10.9 TECHNIQUE: Imaging Protocol: Axial computed tomography images with coronal and sagittal reformatted images were created and reviewed. CONTRAST MATERIAL: Intravenous: Omnipaque 350 Contrast volume:100 mL Oral: Yes COMPARISON: CT CT ABD AORTA CTA W RUNOFF from 09/04/2023 FINDINGS: ABDOMEN: Lung Bases: No acute abnormality. There is a small hiatal hernia. Liver: There is diffuse decreased attenuation of the liver consistent with fatty infiltration. There are few areas of decreased attenuation in the liver most consistent with cysts. No suspicious liver masses are present. Portal, Superior Mesenteric, and Splenic Veins: Unremarkable. Gallbladder and Biliary Tract: No radiodense calculus or dilation. Pancreas: Normal density, no abnormal calcifications or inflammatory process. Spleen: Normal. Adrenals: No masses seen. Kidneys: Normal size, contour and axis. No radiodense stones or obstructive uropathy. There is a simp le cyst in the midpole of the left kidney. No follow-up is recommended. Abdominal Aorta: Abdominal portion non-dilated. Atherosclerotic calcification is present. Bowel: There is diverticulosis but no evidence of acute diverticulitis. There is an anastomosis seen in the small bowel in the left abdomen. There is no evidence of bowel obstruction. No suspicious b owel wall thickening is seen. Appendix is unremarkable. Peritoneal Cavity: No ascites, collection or mesenteric inflammatory response. No free air. Lymph Nodes: Within normal limits. Bones: Within normal limits for the patient's age. Soft Tissues: There is a moderate size fat containing left inguinal hernia. PELVIS: Bladder: Symmetric distention, no gross wall thickening. Reproductive Organs: Unremarkable as visualized. Lymph Nodes: Within normal limits. Bones: The patient has a right total hip arthroplasty. IMPRESSION: 1. No acute abdominal or pelvic process. 2. Fatty infiltration of the liver. 3. Diverticulosis of the bowel but no evidence of acute diverticulitis. 4. Moderate size fat containing left inguinal hernia. 5. No pneumoperitoneum. RADIATION DOSE DELIVERED: 655.83mGy.cm Total DLP DATA REPOSITORY: All CT scans at this facility are submitted to the National Radiology Data Registry (NRDR) Dose Index Registry (DIR) with the [employer] ([employer]). RADIATION OPTIMIZATION: All CT scans at this facility use at least one of these dose optimization te chniques: automated exposure control; mA and/or kV adjustment per patient size (includes targeted exa ms where dose is matched to clinical indication); or iterative reconstruction.
== END 2024-08-29 13:05 ==
LOC: DI 12:51
PROVIDERS: PCP Nurse Practitioner Family; Visit Provider Nurse Practitioner Family
DX: K57.30 Diverticulosis of large intestine without perforation or abscess without bleeding (principal); K76.0 Fatty (change of) liver, not elsewhere classified
CPT/HCPCS: 74177; J3490; Q9967

== ENCOUNTER → 2025-01-25 10:32 | Outpatient (BNVA) | payer MEDICARE, SELFPAY | PROVIDERS: PCP Nurse Practitioner Family; Referring Provider Nurse Practitioner Family; Visit Provider Student in an Organized Health Care Education/Training Program | DX: M54.12 Radiculopathy, cervical region (principal); M19.011 Primary osteoarthritis, right shoulder; X50.0XXA Overexertion from strenuous movement or load, initial encounter; I10 Essential (primary) hypertension | CPT/HCPCS: 99213 ==

== ENCOUNTER → 2025-01-30 07:23 | Outpatient (BNVA) | payer MEDICARE, SELFPAY | PROVIDERS: PCP Nurse Practitioner Family; Referring Provider Nurse Practitioner Family; Visit Provider Surgery | DX: K43.2 Incisional hernia without obstruction or gangrene (principal) | CPT/HCPCS: 99213 ==

== ENCOUNTER 2025-02-13 07:28 | Outpatient (CLI) | payer MEDICARE, SELFPAY ==
--- NOTE | 2025-02-13 07:00 | DI.MRI_ITS ---
Exam(s) MR CERVICAL SPINE WO EXAM: MR CERVICAL SPINE WO CLINICAL HISTORY: no resolution with PT,cervical radiculopathy,m54.12 TECHNIQUE: Multiplanar multisequence MRI of the cervical spine was performed without intravenous contrast. COMPARISON: CR XR CERVICAL SPINE COMP 4-5V from 05/10/2024 FINDINGS: BONES: Vertebral body heights are maintained. There is degenerative straightening of the normal cervical lordosis. Bone marrow signal intensity is within normal limits. CERVICAL CORD: Craniovertebral junction is unremarkable. The cervical cord is normal size and signal intensity. SOFT TISSUES: Unremarkable. C2-3: No disc herniation or bulge is identified. Facet osteophytes cause leftneural foraminal narrowing. No significant central canal stenosis. C3-4: No disc herniation or bulge is identified. Uncovertebral spurring and facet encroachment causes bilateral neural foraminal narrowing. No significant central canal stenosis. C4-5: No disc herniation or bulge is identified. Facet degenerative changes cause mildneural foraminal narrowing. No significant central canal stenosis. C5-6: Moderate to severe loss of disc height. Endplate osteophytes. No disc herniation or bulge is identified.Left neural foraminal narrowing. No significant central canal stenosis. C6-7: Moderate to severe loss of disc height and endplate osteophytes. No disc herniation or bulge is identified. No evidence of neural foraminal narrowing. No significant central canal stenosis. C7-T1: No disc herniation or bulge is identified. Degenerative facet encroachment causes left neural foraminal narrowing. No significant central canal stenosis. IMPRESSION: No evidence of disc herniation. Facet degenerative changes and degenerative disc changes cause multilevel neural foraminal narrowing. No significant central canal stenosis. DATA REPOSITORY:
== END 2025-02-13 07:48 ==
PROVIDERS: PCP Nurse Practitioner Family; Visit Provider Nurse Practitioner Family
DX: M54.12 Radiculopathy, cervical region (principal)
CPT/HCPCS: 72141

== ENCOUNTER 2025-03-30 14:50 | Outpatient (CLI) | payer MEDICARE, SELFPAY ==
--- NOTE | 2025-03-30 14:15 | DI.RAD_ITS ---
Exam(s) XR HAND RT COMPLETE EXAM: XR HAND RT COMPLETE CLINICAL HISTORY: wrist pain. TECHNIQUE: 2D digital imaging was performed. COMPARISON: No exams were available for comparison FINDINGS: 3 views No evidence of acute fracture or dislocation in the hand. There is some mild- moderate degenerative change at the interphalangeal joint of the thumb. At the level the visualized wrist there is degenerative change in the triscaphe joint on the lateral aspect of the wrist between the distal scaphoid and the trapezium-trapezoid. There is minimal if any significant degenerative change at the articulation between the trapezium and the base of the thumb metacarpal. Scapholunate distance unremarkable. There are minimal degenerative changes in the radiocarpal joint. IMPRESSION: Moderate degenerative changes noted in the triscaphe joint on the lateral aspect of the wrist. DATA REPOSITORY: RADIATION DOSE DELIVERED:
== END 2025-03-30 14:51 | disposition home or self-care (01) ==
LOC: DIORS 14:50
PROVIDERS: PCP Nurse Practitioner Family; Referring Provider Nurse Practitioner Family; Visit Provider Student in an Organized Health Care Education/Training Program
DX: M67.431 Ganglion, right wrist (principal)
CPT/HCPCS: 99213; 73130

== ENCOUNTER 2025-05-05 10:35 | Outpatient (CLI) | payer MEDICARE, SELFPAY ==
[2025-05-05 15:12] LABS: ALT 28 U/L (10-49); AST 44 U/L (<34); Albumin 4.6 g/dL (3.2-5.0); Alkaline Phosphatase 88 U/L (46-116); Anion Gap 10.3 mmol/L (3-11); BUN 16 mg/dL (9-23); Bilirubin, Total 0.6 mg/dL (0.2-1.2); CO2 24.7 mmol/L (20.0-31.0); Calcium 9.5 mg/dL (8.3-10.6); Chloride 107 mmol/L (98-107); Cholesterol 203 mg/dL (<200); Glucose 90 mg/dL (74-106); HDL Cholesterol 57 mg/dL (>40); Potassium 4.0 mmol/L (3.5-5.1); Sodium 142 mmol/L (136-145); Total Protein 7.6 g/dL (5.7-8.2)
== END 2025-05-05 10:36 | disposition home or self-care (01) ==
PROVIDERS: PCP Nurse Practitioner Family; Visit Provider Nurse Practitioner Family
DX: E78.2 Mixed hyperlipidemia (principal)
CPT/HCPCS: 36415; 80053; 80061